=== PATIENT | male | born 1940 | race African-American/Black ===

== ENCOUNTER 2020-04-01 07:22 | Outpatient (CLI) | payer MEDICARE, OTHER, SELFPAY ==
--- NOTE | ~2020-04-01 | NM_ITS ---
NM bone scan whole body DATE: 04/01/2020 11:19 INDICATION: Prostate cancer restaging TECHNIQUE: Routine anterior and posterior whole body images of the skeleton approximately 3 hours aft er intravenous injection of 24.5 mCi 99M technetium HDP. COMPARISON: 04/01/2020 CT pulmonary scan 04/18/2020 CT abdomen pelvis 11/27/2018 radionuclide bone scan FINDINGS: There is prominent activity at the first carpometacarpal joint areas bilaterally consistent with osteoarthritis. There is also some increased uptake at the wrist joints. There is increased activity at the left knee joint, likely degenerative. There is increased uptake at the sternoclavicular and acromioclavicular joints, likely degenerative. No evidence of metastatic disease; no significant abnormal uptake of the spine or ribs. IMPRESSION: Degenerative changes; no evidence of metastatic disease Reviewed, dictated and finalized at [facility]. Reviewed, dictated and finalized at [facility].
--- NOTE | ~2020-04-01 | CT_ITS ---
EXAMINATION: CTA chest PE protocol DATE: 04/01/2020 09:33 INDICATION: Prostate cancer. Acute pulmonary embolism. TECHNIQUE: Computed tomography angiography (CTA) of the chest was performed with 100 mL Omnipaque-350 intravenous contrast timed to evaluate the pulmonary arteries. Coronal maximum intensity projection 3D-reconstructions were created by the technologist. Automated exposure control and iterative reconst ruction technique were employed. Exam dose: 1011.66 mGy-cm total exam DLP. COMPARISON: 04/01/2022 view chest 01/04/2016 CT chest abdomen pelvis FINDINGS: There is diagnostic contrast enhancement of the pulmonary arteries and no evidence of pulmo nary embolism. There is a new up to 1.6 cm irregular soft tissue mass in the right apex since 01/04/2016, suggesting right apical lung malignancy. PET/CT scan should be considered for further evaluation. Mild to moderate emphysematous changes are noted. Bilateral calcified pulmonary granulomas.. Calcified left hilar and right hilar lymph nodes. Aberrant origin of the right subclavian artery, a congenital anomaly. No thoracic aortic aneurysm or dissection is evident.] A couple of greater fissure lymph nodes are noted on each side. Left-sided transvenous pacemaker device with leads in right atrium, right ventricle, coronary sinus. Normal heart size. No pericardial or pleural effusion. Small sliding hiatal hernia. Diverticulosis of the splenic and hepatic flexures. Calcified hepatic and splenic granulomas consistent with old granulomatous disease. There is an approximately 6 millimeter sclerotic lesion of T6 vertebral body and another at T11, like ly secondary to prostate carcinoma. These lesions are less dense than noted on 01/04/2016 CT chest abd omen pelvis examination. Bilateral sclerotic sixth rib lesions are likewise less dense than on 01/04/2016. IMPRESSION: Irregular new 1.6 cm soft tissue mass in right lung apex, strongly suggestive of pulmonary malignancy . Consider PET/CT scan. Mild to moderate emphysema No evidence of pulmonary embolism. Small sliding hiatal hernia Diverticulosis of the colon Osteosclerotic lesions of T6, T11 and bilateral sixth ribs are less dense compared to 01/04/2016 On 04/01/[address] Joy telephoned the report and recommendation for consideration for PE T/CT scan for right apical irregular 1.[address] Draper Reviewed, dictated and finalized at [facility]. Reviewed, dictated and finalized at [facility]. IMPRESSION: Irregular new 1.6 cm soft tissue mass in right lung apex, strongly suggestive o f pulmonary malignancy. Consider PET/CT scan. Mild to moderate emphysema No evidence of pulmonary embolism. Small sliding hiatal hernia Diverticulosis of the colon Osteosclerotic lesions of T6, T11 and bilateral sixth ribs are less dense nani red to 01/04/2016 On 04/01/[address] Joy telephoned the report and recommendation fo r consideration for PET/CT scan for right apical irregular 1.[address] Jero chendel
--- NOTE | ~2020-04-01 | XR_ITS ---
EXAMINATION: XR chest 2V DATE: 04/01/2020 08:24 INDICATION: Prostate cancer. TECHNIQUE: Frontal and lateral views of the chest were obtained. COMPARISON: Chest 2 views 11/27/2018 FINDINGS: Calcified right lung nodules and calcified right hilar and mediastinal lymph nodes are cons istent with old granulomatous disease. No pleural effusion or pneumothorax. The heart size is normal. There is a left chest pacer with leads in right atrium, right ventricle, and coronary sinus. There i s an orphan lead in right ventricle. IMPRESSION: 1. No acute cardiopulmonary disease. Reviewed, dictated and finalized at [facility].
--- NOTE | ~2020-04-01 | CT_ITS ---
EXAMINATION: CT abdomen pelvis w con DATE: 04/01/2020 09:32 INDICATION: Prostate cancer restaging. TECHNIQUE: Computed tomography (CT) of the abdomen and pelvis was performed with 100 cc Omnipaque 350 intravenous contrast. Automated exposure control and iterative reconstruction technique were employe d. Exam dose: 1011.66 mGy-cm total exam DLP. COMPARISON: 01/04/2016 CT chest abdomen pelvis FINDINGS: New 1.6 cm irregular right apical soft tissue mass, suggestive of primary pulmonary maligna ncy. PET/CT imaging is recommended. Mild to moderate emphysema. Bilateral greater fissure lymph nodes. No pulmonary infiltrate or consolidation. No pleural effusion or pneumothorax. Normal heart size. Tri ple lead left-sided pacemaker device Small sliding hiatal hernia. Calcified hepatic and splenic granulomas consistent with old granulomatous disease. Old pulmonary gra nulomatous disease. 5.4 cm right renal cyst. 4 mm probable small left renal cyst. Possible smaller upper pole left renal cyst(s). Scattered Normal appendix. There are numerous diverticula of left and right colon, consistent with d iverticulosis; no evidence of diverticulitis. No bowel obstruction or intraperitoneal free air. Normal caliber of the abdominal aorta. No intraperitoneal or retroperitoneal mass lesion or lymphade nopathy or ascites. Status post hysterectomy. The urinary bladder is unremarkable. Less sclerotic bilateral sixth rib and T6 and T11 osteosclerotic lesions are noted, likely secondary to prostate metastases. Degenerative changes of the thoracic and lumbar spine, particularly at L5-S1. IMPRESSION: Less sclerotic osteosclerotic lesions likely secondary to prostate cancer at T6, T11 and bilateral sixth ribs Old pulmonary and hepatic and splenic granulomatous disease Small sliding hiatal hernia Renal cysts Extensive diverticulosis of the colon; no evidence of diverticulitis Reviewed, dictated and finalized at [facility]. Reviewed, dictated and finalized at [facility].
--- NOTE | ~2020-04-01 | US_ITS ---
EXAMINATION: US venous doppler [facility] DATE: 04/01/2020 08:57 INDICATION: Acute pulmonary embolism. TECHNIQUE: Grayscale ultrasound images without and with compression and Doppler ultrasound images of the left lower extremity veins were obtained. COMPARISON: None. FINDINGS: The visualized portions of left common femoral vein, profunda (deep) femoral vein, femoral vein, popl iteal vein, peroneal veins, posterior tibial veins, and greater saphenous vein outflow are patent. Th ere is a large Pineda's cyst. IMPRESSION: 1. No deep venous thrombosis. 2. Large left-sided Pineda's cyst. Reviewed, dictated and finalized at [facility].
[2020-04-01 09:07] LABS: Estimated Glomerular Filt Rate > 60
[2020-04-01 10:46] LABS: Basophils Absolute Auto 0.1 K/mm3 (0.0-0.1); Basophils Percent Auto 1.1 % (0.2-1.2); Eosinophils Absolute Auto 0.1 K/mm3 (0-0.3); Eosinophils Percent Auto 2.2 % (0-4.4); Hematocrit 43.4 % (42.0-52.0); Hemoglobin 14.3 g/dL (14.0-18.0); Immature Granulocyte Absolute 0.03 K/mm3 (0.00-0.031); Immature Granulocyte Percent A 0.5 % (0-0.5); Lymphocytes Absolute Auto 1.25 K/mm3 (0.9-3.2); Lymphocytes Percent Auto 22.5 % (18.3-44.2); Mean Corpuscular HGB Conc 32.9 g/dl (32-36); Mean Corpuscular Hemoglobin 31.7 pg (26-34); Mean Corpuscular Volume 96.2 fl (80-100); Mean Platelet Volume 10.1 fl (7.4-10.4); Monocytes Absolute Auto 0.6 K/mm3 (0.1-0.6); Monocytes Percent Auto 11.5 % (2.6-8.5); Neutrophils Absolute Auto 3.5 K/mm3 (1.3-6.7); Neutrophils Percent Auto 62.2 % (45.5-73.1); Platelet Count Result 187 k/mm3 (150-375); Red Blood Count 4.51 M/mm3 (4.6-6.20); Red Cell Distribution Width 12.3 % (11.5-14.5); White Blood Count 5.6 K/mm3 (4.5-10.0)
[2020-04-01 10:58] LABS: Alanine Aminotransferase 33 U/L (4-50); Albumin Level 4.2 g/dL (3.5-5.1); Alkaline Phosphatase 123 U/L (38-126); Aspartate Amino Transferase 32 U/L (17-59); Bilirubin,Total 0.6 mg/dL (0.2-1.3); Blood Urea Nitrogen 20 mg/dL (9-20); Calcium 9.3 mg/dL (8.4-10.2); Carbon Dioxide 30 mmol/L (22-30); Chloride 105 mmol/L (98-107); Cholesterol 191 mg/dL (0-200); Estimated Glomerular Filt Rate > 60; Glucose 101 mg/dL (75-110); HDL Direct 40 mg/dL; Potassium 4.2 mmol/L (3.4-5.0); Sodium 141 mmol/L (137-145); Triglycerides 112 mg/dL (<150)
[2020-04-01 11:09] LABS: LDL Cholesterol Direct 116 mg/dL
[2020-04-01 11:27] LABS: Prostate Specific Antigen 0.1 ng/mL (< OR = 4.0)
== END 2020-04-01 07:23 | disposition home or self-care (01) ==
PROVIDERS: PCP Internal Medicine; Visit Provider Internal Medicine Hematology & Oncology
DX: C61 Malignant neoplasm of prostate (principal); I26.99 Other pulmonary embolism without acute cor pulmonale; I82.4Z2 Acute embolism and thrombosis of unspecified deep veins of left distal lower extremity; I10 Essential (primary) hypertension; E78.5 Hyperlipidemia, unspecified
CPT/HCPCS: 36415; 71046; 71275; 74177; 78306; 80053; 80061; 84153; 84439; 84443; 85025; 93971; A9561; Q9967

== ENCOUNTER 2020-04-02 09:00 | Outpatient (CLI) | payer MEDICARE, OTHER, SELFPAY ==
--- NOTE | ~2020-04-02 | PE_ITS ---
EXAMINATION: PET skull to mid thigh DATE: 04/02/2020 11:01 INDICATION: Lung nodule. Prostate cancer. TECHNIQUE: Blood glucose level was 102 mg/dL. 10.060 mCi of 18-fluorodeoxyglucose (18-FDG) was admini stered i.v. Low dose computed tomography (CT) images were acquired from the base of the brain to the proximal thighs for attenuation correction and anatomic localization. Automated exposure control was employed. Dose-length product (DLP) was 704 mGy-cm. Positron emission tomography (PET) images were ac quired in the same distribution. COMPARISON: CT abdomen and pelvis 04/01/2020, 11/27/2018, 07/03/2012, CT chest 01/04/16, 04/01/20 FINDINGS: Head/neck: There is increased activity in the oral cavity, oropharynx, submandibular salivary glands, and glottis without CT correlate, likely physiologic. Chest: There is mild scarring at the lung apices. There is a 1.2 cm nodule at right lung apex with ma ximum SUV of 2.6, worsened from 01/04/16. Calcified pulmonary nodules and calcified hilar and mediasti nal lymph nodes are consistent with old granulomatous disease. No pleural effusion. The heart size is normal. There is a left chest pacer with leads in right atrium, right ventricle, and coronary sinus. No pericardial effusion. There are sclerotic lesions in the bilateral 6th ribs and T6 and T11 verteb ral bodies. Abdomen/pelvis/proximal thighs: Calcifications in the liver and spleen are consistent with old adenom atous disease. There is contrast in the gallbladder. There is a small sliding hiatal hernia. The panc reas, adrenal glands, and left kidney are normal. There are cysts in right kidney measuring up to 5.7 cm. The prostate is mildly enlarged. There is diverticulosis of the colon without evidence of divert iculitis. There are no dilated loops of bowel. There are no pathologically enlarged lymph nodes. Ther e is no free intraperitoneal fluid. IMPRESSION: 1. 1.2 cm nodule at right lung apex with increased activity, worsened from 01/04/16, suspicious for pr imary bronchogenic carcinoma. CT-guided biopsy is recommended. 2. Sclerotic lesions of bone with improvement from 01/04/16, consistent with metastatic disease. Reviewed, dictated and finalized at [facility]. IMPRESSION: 1. 1.2 cm nodule at right lung apex with increased activity, worsened from 01/04, suspicious for primary bronchogenic carcinoma. CT-guided biopsy is recomme nded. 2. Sclerotic lesions of bone with improvement from 01/04/16, consistent with met astatic disease.
[2020-04-02 09:34] LABS: Glucose Point of Care 102 (65-105)
== END 2020-04-02 09:01 | disposition home or self-care (01) ==
PROVIDERS: PCP Internal Medicine; Visit Provider Internal Medicine Hematology & Oncology
DX: C61 Malignant neoplasm of prostate (principal); R91.1 Solitary pulmonary nodule; M89.9 Disorder of bone, unspecified
CPT/HCPCS: 78815; A9552

== ENCOUNTER 2020-09-16 07:30 | Outpatient (CLI) | payer MEDICARE, OTHER, SELFPAY ==
--- NOTE | ~2020-09-16 | NM_ITS ---
EXAMINATION: NM bone scan whole body DATE: 09/16/2020 11:09 INDICATION: Prostate cancer. TECHNIQUE: 25 mCi Tc-99m HDP was administered intravenously. Delayed whole-body scintigrams were obt ained. COMPARISON: Bone scan 04/01/2020, CT 09/16/2020 FINDINGS: There is joint-centered increased activity in the hands and left knee without radiographic comparison, likely osteoarthritis. IMPRESSION: 1. No evidence of metastatic disease. Reviewed, dictated and finalized at [facility].
--- NOTE | ~2020-09-16 | CT_ITS ---
EXAMINATION: CT chest abdomen pelvis w con DATE: 09/16/2020 08:21 INDICATION: Prostate cancer restaging TECHNIQUE: Computed tomography (CT) of the chest, abdomen, and pelvis was performed with 100 cc Omnip aque 350 intravenous contrast. Automated exposure control and iterative reconstruction technique were employed. Exam dose: 808.39 mGy-cm total exam DLP. COMPARISON: 04/01/2028 CT pulmonary scan 04/01/2020 CT abdomen pelvis FINDINGS: CHEST CT: Incidentally noted is aberrant right subclavian artery. Left-sided triple lead pacemaker device with leads in right atrium, right ventricle and coronary sinu s. Normal heart size. No pericardial effusion. No evidence of thoracic aortic aneurysm or dissection. No hilar or mediastinal mass lesion or lymphadenopathy. Approximately 9 x 15.5 mm right apical soft tissue density appears mildly increased in size since 03/20; this was associated with activity on the 04/02/2028 PET scan and was reported suspicious for p rimary bronchogenic carcinoma. Bilateral likely benign fissural nodes along the greater fissures. ABDOMEN/PELVIS CT: Very small gallstones at the dependent gallbladder are not excluded. Consider gallbladder ultrasound for more definitive confirmation or exclusion of cholelithiasis. Occasional hepatic and splenic calci fied granulomas consistent with old granulomatous disease. The liver, spleen, pancreas, and adrenal glands and kidneys are unremarkable other than a 5.4 cm exop hytic cyst at the lower pole of the right kidney. No urinary tract calculus or hydroureteronephrosis. There is atherosclerotic calcification of the abdominal aorta but no aneurysm or dissection. No intraperitoneal or retroperitoneal or pelvic mass lesion or adenopathy or ascites. Bilateral fat-containing inguinal hernias, larger on the left. Small sliding hiatal hernia. Normal appendix. There is extensive diverticulosis of left and right colon; no CT evidence of diverticulitis. No bowel obstruction, bowel wall thickening, pneumatosis or intraperitoneal free air. Probable prostatectomy. The urinary bladder appears unremarkable. IMPRESSION: Probable prostatectomy; no mass in the prostate bed or abdominal or pelvic lymphadenopat hy or evidence of osteosclerotic metastatic disease Mildly increased size of right apical mass, which was PET scan positive, suspicious for primary bronc hogenic carcinoma of the right upper lobe Cannot exclude cholelithiasis Extensive diverticulosis of left and right colon; no CT evidence of diverticulitis Small sliding hiatal hernia Reviewed, dictated and finalized at [facility]. Reviewed, dictated and finalized at [facility]. IMPRESSION: Probable prostatectomy; no mass in the prostate bed or abdominal o r pelvic lymphadenopathy or evidence of osteosclerotic metastatic disease Mildly increased size of right apical mass, which was PET scan positive, suspic ious for primary bronchogenic carcinoma of the right upper lobe Cannot exclude cholelithiasis Extensive diverticulosis of left and right colon; no CT evidence of diverticuli tis Small sliding hiatal hernia
[2020-09-16 08:14] LABS: Estimated Glomerular Filt Rate > 60
== END 2020-09-16 07:31 | disposition home or self-care (01) ==
PROVIDERS: PCP Internal Medicine
DX: C61 Malignant neoplasm of prostate (principal); R91.8 Other nonspecific abnormal finding of lung field; K57.90 Diverticulosis of intestine, part unspecified, without perforation or abscess without bleeding; K44.9 Diaphragmatic hernia without obstruction or gangrene
CPT/HCPCS: 71260; 74177; 78306; A9561; Q9967

== ENCOUNTER 2022-01-31 07:52 | Outpatient (CLI) | payer MEDICARE, OTHER, SELFPAY ==
--- NOTE | ~2022-01-31 | CT_ITS ---
EXAMINATION: CT abdomen pelvis w con DATE: 01/31/2022 08:35 INDICATION: Prostate cancer. TECHNIQUE: Computed tomography (CT) of the abdomen and pelvis was performed with 100 mL Omnipaque 350 intravenous contrast. Automated exposure control and iterative reconstruction technique were employe d. The dose-length product was 609.86 mGy-cm. COMPARISON: CT abdomen and pelvis 09/16/2020 FINDINGS: The visualized portions of the lung bases demonstrate mild chronic interstitial lung diseas e characterized by septal thickening and mild bronchiectasis. There is a pneumatocele in right lower lobe. No pleural effusion. The heart size is normal. No pericardial effusion. There are pacer wires i n right atrium and right ventricle. There is a small sliding hiatal hernia. Calcifications in the alexsandra er and spleen are consistent with old granulomatous disease. The gallbladder, pancreas, and adrenal g lands are normal. There are cysts in the kidneys measuring up to 5.7 cm on the right. There is divert iculosis of the colon without evidence of diverticulitis. There is a left inguinal hernia containing fat. There are no dilated loops of bowel. The appendix is normal. There are no pathologically enlarge d lymph nodes. There is no free intraperitoneal fluid. There is severe lower lumbar spondylosis. IMPRESSION: 1. No evidence of metastatic disease. Reviewed, dictated and finalized at [facility].
[2022-01-31 08:26] LABS: Estimated Glomerular Filt Rate > 60
== END 2022-01-31 07:53 | disposition home or self-care (01) ==
PROVIDERS: PCP Internal Medicine
DX: C61 Malignant neoplasm of prostate (principal)
CPT/HCPCS: 74177; Q9967

== ENCOUNTER 2022-02-11 08:25 | Outpatient (CLI) | payer MEDICARE, OTHER, SELFPAY ==
--- NOTE | ~2022-02-11 | NM_ITS ---
EXAMINATION: NM bone scan whole body DATE: 02/11/2022 12:39 INDICATION: Prostate cancer TECHNIQUE: 25.7 mCi Tc-99m HDP was administered intravenously. Delayed whole-body scintigrams were o btained. COMPARISON: 09/16/2020 FINDINGS: Gaseous likely degenerative joint centered uptake at the bilateral hands, knees, feet, sternoclavicul ar and acromioclavicular joints. Small focus of at the right side of the mandible likely related to d ental disease. No other suspicious foci of abnormal bone uptake to suggest metastatic disease. IMPRESSION: 1. No evident metastatic disease. Reviewed, dictated and finalized at [facility].
== END 2022-02-11 08:26 | disposition home or self-care (01) ==
LOC: ANHIMG 08:27
PROVIDERS: PCP Internal Medicine; Visit Provider Family Medicine
DX: C61 Malignant neoplasm of prostate (principal)
CPT/HCPCS: 78306; A9561

== ENCOUNTER 2022-09-21 06:34 | Outpatient (CLI) | payer MEDICARE, OTHER, SELFPAY ==
--- NOTE | ~2022-09-21 | CT_ITS ---
EXAMINATION: CT chest abdomen pelvis w con DATE: 09/21/2022 07:22 INDICATION: Non-small cell cancer of right lung. TECHNIQUE: Computed tomography (CT) of the chest, abdomen, and pelvis was performed with 100 mL Omnip aque 350 intravenous contrast. Automated exposure control and iterative reconstruction technique were employed. The dose-length product was 947.29 mGy-cm. COMPARISON: CT abdomen and pelvis 01/31/2022 FINDINGS: CHEST CT: There is mild atelectasis in the inferior lungs. There is chronic peripheral septal thickening in the lungs with a lower lung predominance. No honeycombing. There is a pneumatocele in right lower lobe. There are changes of wedge resection of right upper lobe. No pleural effusion. There is an aberrant r ight subclavian artery. The heart size is normal. No pericardial effusion. There is a left chest pace r with leads in right atrium, right ventricle, and coronary sinus. There is a small sliding hiatal he rnia. Calcified hilar and mediastinal lymph nodes are consistent with old granulomatous disease. Ther e is mild thoracic spondylosis. ABDOMEN/PELVIS CT: The liver, gallbladder, spleen, pancreas, adrenal glands, and left kidney are normal. There is a 6.1 cm cyst in right kidney. There are bilateral inguinal hernias containing fat. There are changes of pr ostatectomy. There is diverticulosis of the colon without evidence of diverticulitis. There are no di lated loops of bowel. The appendix is normal. There are no pathologically enlarged lymph nodes. There is no free intraperitoneal fluid. There is severe lower lumbar spondylosis. IMPRESSION: 1. No evidence of metastatic disease. Reviewed, dictated and finalized at location [facility].
[2022-09-21 07:19] LABS: Estimated Glomerular Filt Rate > 60
== END 2022-09-21 06:35 | disposition home or self-care (01) ==
PROVIDERS: PCP Internal Medicine; Visit Provider Student in an Organized Health Care Education/Training Program
DX: C34.91 Malignant neoplasm of unspecified part of right bronchus or lung (principal)
CPT/HCPCS: 71260; 74177; Q9967

== ENCOUNTER 2023-03-30 08:40 | Outpatient (CLI) | payer MEDICARE, OTHER, SELFPAY ==
--- NOTE | ~2023-03-30 | CT_ITS ---
Clinical Indication: Non-small cell lung carcinoma CT Scan of the Chest with Contrast: Technique: Contiguous sections were acquired throughout the chest after intravenous administration of 75 cc of Omnipaque 350. Dose reduction technique was used on this scan by utilizing automated exposu re control and iterative reconstruction technique. The dose-length product (DLP) was 421.10 mGy-cm. COMPARISON: 09/21/2022 Findings: There is no evidence of any significant mediastinal, hilar or axillary lymphadenopathy. Densely calci fied right paratracheal lymph node noted. There is no filling defect in the pulmonary arterial tree t o suggest pulmonary embolus. There is no evidence of aortic dissection or aneurysm. Aberrant right mckeon bclavian artery noted. There is no evidence of pleural or pericardial effusion. Probable prior partial right upper lobectomy again noted. No suspicious pulmonary nodule or other pul monary abnormality seen. Images through the upper abdomen reveal no abnormalities. Impression: No evidence for active malignancy or metastatic disease. No change from prior exam. Evidence of prior partial right upper lobectomy. Reviewed, dictated and finalized at location . Impression: No evidence for active malignancy or metastatic disease. No change from prior e xam. Evidence of prior partial right upper lobectomy.
[2023-03-30 09:01] LABS: Estimated Glomerular Filt Rate > 60
== END 2023-03-30 08:41 | disposition home or self-care (01) ==
PROVIDERS: PCP Internal Medicine; Visit Provider Internal Medicine Hematology & Oncology
DX: C34.91 Malignant neoplasm of unspecified part of right bronchus or lung (principal); Z90.2 Acquired absence of lung [part of]
CPT/HCPCS: 71260; Q9967

== ENCOUNTER 2023-07-24 18:40 | Emergency (ER) | payer MEDICARE, OTHER, SELFPAY ==
--- NOTE | ~2023-07-24 | CT_ITS ---
Non-contrast Head CT History: Injury Technique: Axial non-contrast imaging of the brain was performed. Dose reduction technique was used on this scan by utilizing automated exposure control and iterative reconstruction technique. The dose -length product (DLP) was 605.33 mGy-cm. Findings: There is no evidence of intracranial hemorrhage, mass lesion, or acute infarct. Brain par enchyma appears normal. The ventricles and subarachnoid spaces are normal in size. The calvarium ap pears normal. The visualized paranasal sinuses and mastoid air cells are clear. Impression: No significant abnormality seen. Reviewed, dictated and finalized at location . Impression: No significant abnormality seen.
--- NOTE | ~2023-07-24 | CT_ITS ---
Noncontrast CT scan of the cervical spine Technique: Multiple contiguous axial [address] images of the cervical spine were obtained and rec onstructed in 2D sagittal and coronal planes on the acquisition scanner. Dose reduction technique was used on this scan by utilizing automated exposure control, adjustment of the mA and/or kV according to patient size. The dose-length product (DLP) was 580.08 mGy-cm. Clinical History: Pain Findings: No fractures or dislocations. There is advanced degenerative disc disease throughout the c ervical spine, with extensive uncovertebral degenerative change. There is probable mild bilateral [place] ral foraminal narrowing at C3-C4, with disc osteophyte complex and probable mild canal stenosis. Ther e is bilateral neural foraminal narrowing at C4-C5, disc osteophyte complex and probable mild canal s tenosis. There is bilateral neural foraminal narrowing at C5-C6. There is bilateral neural foraminal narrowing at C6-C7. No prevertebral soft tissue swelling. Impression: No fracture or subluxation of the cervical spine. Advanced degenerative spondylosis throughout the cervical spine, as detailed above. Reviewed, dictated and finalized at location M. Impression: No fracture or subluxation of the cervical spine. Advanced degenerative spondylosis throughout the cervical spine, as detailed ab jorge.
[2023-07-24 18:46] VITALS: BP 145/71; PULSE 59; RESP 16; TEMP 36.2; O2SAT 99
[2023-07-24 19:23] VITALS: BP 141/77; PULSE 75; RESP 15; O2SAT 100
--- NOTE | 2023-07-24 19:23 | ED.FALL ---
HPI - Fall General Chief Complaint: Fall Stated Complaint: FALL/ STRUCK HEAD Time Seen by Provider: 07/24/23 18:43 History of Present Illness HPI Narrative: Patient presents from home with his after a fall. He slipped on laundry on the basement floor. Landing on the back of his head. Patient saw stars but denies loss of consciousness. Denies any current headache or symptoms. Also denies any additional injuries. Patient ambulated into the emergency department. He is very pleasant and his exam is grossly benign. Patient takes Xarelto for history of PE 4 years ago Related Data Home Medications Medication Instructions Recorded Confirmed Unable to Obtain Home Medications 07/06/22 07/06/22 Allergies Allergy/AdvReac Type Severity Reaction Status Date / Time No Known Allergies Allergy Verified 07/06/22 13:22 Review of Systems Review of Systems: All review of systems negative except for what is documented in the HPI Exam Narrative: GENERAL: Well-appearing, well-nourished, and in no acute distress. HEAD: Normocephalic, atraumatic. EYES: PERRLA and EOMI. ENT: Nares clear, no rhinorrhea or epistaxis. Mucous membranes moist. NECK: Supple. no vertebral tenderness CHEST: Clear to auscultation. No respiratory distress. HEART: Regular rate and rhythm. ABDOMEN: Soft, nontender, nondistended. EXTREMITIES: Normal range of motion. No edema. SKIN: Warm, dry, no rash. NEURO: No focal deficits. Alert and oriented x3. PSYCH: Normal mood and affect. Course Course Emergency Course: Due to patient being on Xarelto head CT ordered. Due to mechanism of fall CT neck also ordered. Patient denies current complaints. If negative will plan for discharge to home Reevaluation(s) Reevaluation #1: CT head negative for acute intracranial injury. CT C-spine shows advanced degenerative changes. Results discussed with patient. Advised to return to the emergency department for any acute changes. Shared decision making regarding plan for discharge to home. Vital Signs Vital signs: Vital Signs Temperature 36.2 C L 07/24/23 18:46 Pulse Rate 59 L 07/24/23 18:46 Respiratory Rate 16 07/24/23 18:46 Blood Pressure 145/71 H 07/24/23 18:46 Pulse Oximetry 99 07/24/23 18:46 Temperature 36.2 C L 07/24/23 18:46 Pulse Rate 75 07/24/23 19:23 Respiratory Rate 15 07/24/23 19:23 Blood Pressure 141/77 H 07/24/23 19:23 Pulse Oximetry 100 07/24/23 19:23 Discharge Plan Discharge Clinical Impression: Acute head trauma Qualifiers: Encounter type: initial encounter Qualified Code(s): S09.90XA - Unspecified injury of head, initial encounter Fall Qualifiers: Encounter type: initial encounter Qualified Code(s): W19.XXXA - Unspecified fall, initial encounter Patient Disposition: Home, Self-Care Condition: Stable Instructions: Antibiotic Form, Head Injury (DC) Additional Instructions: Tylenol for any headache Return to the emergency department for any worsening headache, lightheadedness or dizziness or vomiting Prescriptions: No Action Unable to Obtain Home Medications Follow-up/Referrals: Elver,MD Nithin [Primary Care Provider] - Time of Disposition: 19:36
== END 2023-07-24 20:01 | disposition home or self-care (01) ==
LOC: ANHED 19:29
PROVIDERS: Emergency Provider Emergency Medicine; PCP Internal Medicine
DX: S09.90XA Unspecified injury of head, initial encounter (principal); Z86.711 Personal history of pulmonary embolism; Z79.01 Long term (current) use of anticoagulants; W01.0XXA Fall on same level from slipping, tripping and stumbling without subsequent striking against object, initial encounter
CPT/HCPCS: 70450; 72125; 99284

== ENCOUNTER 2023-07-26 07:58 | Emergency (ER) | payer MEDICARE, OTHER, SELFPAY ==
--- NOTE | ~2023-07-26 | XR_ITS ---
EXAMINATION: XR knee LT 3V DATE: 07/26/2023 09:26 INDICATION: Posterior left knee pain and swelling post fall TECHNIQUE: Anteroposterior, oblique and crosstable lateral views of the left knee were obtained COMPARISON: None. FINDINGS: Alignment is normal. No fracture. Tricompartmental osteoarthritis at the left knee with small margin al osteophytes in all 3 compartments. There is at least mild to moderate joint space narrowing in the lateral compartment which could be underestimated on nonweightbearing imaging. Subtle chondrocalcino sis at the lateral meniscus. Small to moderate-sized left knee joint effusion without layering lipohe marthrosis. Loose osteochondral body posterior medial to the knee likely within a Pineda's cyst. There appears to be some fatty atrophy of the medial head of the gastrocnemius. IMPRESSION: 1. Left knee tricompartmental osteoarthritis and small to moderate-sized joint effusion. No acute oss eous abnormality. Reviewed, dictated and finalized at location A. IMPRESSION: 1. Left knee tricompartmental osteoarthritis and small to moderate-sized joint effusion. No acute osseous abnormality.
[2023-07-26 08:22] VITALS: BP 144/60; PULSE 70; RESP 15; TEMP 36.4; O2SAT 100
[2023-07-26 09:13] VITALS: BP 157/80; O2SAT 100
[2023-07-26 09:15] VITALS: BP 154/80; PULSE 69; RESP 16; TEMP 36.8; O2SAT 98
[2023-07-26 09:16] VITALS: BP 150/80; O2SAT 100
--- NOTE | 2023-07-26 09:31 | ED.LOWEXIN ---
HPI - Extremity Injury (Lower) General Chief Complaint: Extremity Injury, Lower Stated Complaint: fall on 07/24 knee pain Time Seen by Provider: 07/26/23 09:17 History of Present Illness HPI Narrative: 83-year-old male reports for evaluation for left knee pain after fall that occurred 2 days ago. Patient states he slipped on loose laundry on the floor and landed with his left knee tucked up under him. Patient states he did not feel a popping sensation in his knee at the time of the fall. At the time, he did hit his head, no reported LOC. He was evaluated in this ER the day of the fall and had a negative CT brain and neck not at that time. Patient states he is feeling great other than his left knee pain. Patient reports the pain is predominantly in the posterior aspect of his knee. He is able to ambulate but states the pain is worse with ambulation. He also reports worsening pain with full extension of his knee. He denies fever, nausea or vomiting, knee warmth. He has not been icing his knee or taking anything for pain. Related Data Home Medications Medication Instructions Recorded Confirmed Unable to Obtain Home Medications 07/06/22 07/06/22 Allergies Allergy/AdvReac Type Severity Reaction Status Date / Time No Known Allergies Allergy Verified 07/06/22 13:22 Review of Systems Review of Systems: CONSTITUTIONAL: Denies fever, chills EYES: Denies visual changes, redness, or discharge. ENT: Denies rhinorrhea, congestion, sore throat, or otalgia. CARDIOVASCULAR: Denies chest pain, palpitations, or edema. RESPIRATORY: Denies cough or dyspnea. GASTROINTESTINAL: Denies abdominal pain, nausea, vomiting, or diarrhea. GENITOURINARY: Denies dysuria or hematuria. SKIN: Denies rash or itching. MUSCULOSKELETAL: See HPI NEUROLOGIC: Denies headache, numbness, dizziness, or weakness. PSYCHIATRIC: Denies anxiety or depression. Exam Narrative: GENERAL: Well-appearing, in no acute distress. Patient resting comfortably in exam bed. He is pleasant and conversational. HEAD: Normocephalic NECK: Supple. CHEST: No respiratory distress. Clear to auscultation, no adventitious breath sounds. HEART: Regular rate and rhythm. No murmur heard. Normal peripheral pulses. ABDOMEN: Soft, nontender, normal active bowel sounds. EXTREMITIES: Left knee with mild to moderate amount of edema. Tenderness to the medial joint line. No tenderness to remainder of knee or lower extremity. Full active and passive range of motion of knee and hip. No warmth or erythema to knee. Negative anterior and posterior drawer. No laxity with varus and valgus stress patient ambulatory with steady gait. No overlying skin changes. DP pulse 2+. Cap refill less than 2. Sensation intact throughout. SKIN: Warm, dry, no rash. NEURO: No focal deficits. Alert and oriented x3. PSYCH: Normal mood and affect. Course Vital Signs Vital signs: Vital Signs Temperature 97.5 F L 07/26/23 08:22 Pulse Rate 70 07/26/23 08:22 Respiratory Rate 15 07/26/23 08:22 Blood Pressure 144/60 H 07/26/23 08:22 Pulse Oximetry 100 07/26/23 08:22 Oxygen Delivery Room Air 07/26/23 08:22 Temperature 98.3 F 07/26/23 09:15 Pulse Rate 69 07/26/23 09:15 Respiratory Rate 16 07/26/23 09:15 Blood Pressure 154/80 H 07/26/23 09:15 Pulse Oximetry 98 07/26/23 09:15 Oxygen Delivery Room Air 07/26/23 08:22 MDM - Extremity Injury (Lower) MDM Narrative Medical decision making narrative: 83-year-old male reports for evaluation for left knee pain after fall that occurred 2 days ago after he slipped on laundry on the floor. See HPI for further history. Vital stable and he is well-appearing on exam. Exam significant knee edema without warmth or erythema. Full active and passive range of motion of knee. He is neurovascularly intact. X-ray of the knee shows left knee tricompartmental osteoarthritis and a small to moderate size joint effusion. No acute osse
[2023-07-26 10:01] VITALS: BP 142/84; O2SAT 100
[2023-07-26] MEDS: ACETAMINOPHEN 325 MG TABLET 650 MG PO (10:06)
== END 2023-07-26 10:19 | disposition home or self-care (01) ==
PROVIDERS: Emergency Provider Physician Assistant; PCP Internal Medicine
DX: S86.912A Strain of unspecified muscle(s) and tendon(s) at lower leg level, left leg, initial encounter (principal); M17.12 Unilateral primary osteoarthritis, left knee; W01.0XXA Fall on same level from slipping, tripping and stumbling without subsequent striking against object, initial encounter
CPT/HCPCS: 73562; 99283; A9270

== ENCOUNTER 2023-09-15 01:22 | Day surgery (SDC) | payer MEDICARE, OTHER, SELFPAY ==
[2023-09-06 11:36] VITALS: BMI 31.4
--- NOTE | 2023-09-13 11:06 | PC.NURSE ---
CRMD form received from Dr. Vaughan office, noted that Rep. needs to be present if cautery is used during procedure-magnet application is not sufficient. Dr. Loving made aware of this per Tram Hernandes RN and he does not need a rep. present and will not use cautery requiring this. Note is made on chart for day of proc.
--- NOTE | 2023-09-14 16:41 | PM.HPGS ---
History of Present Illness History of Present Illness Consent: Risks, benefits, and alternatives have been discussed and questions answered. Patient agrees to proceed with procedure. Chief complaint: GERD Narrative: Jeanna Felix is a 83 year old male referred for endoscopy because of persistent symptoms of reflux despite taking omeprazole. The medicine has controlled his heartburn but he is having increasing episodes of regurgitation. This particularly occurs at night. Review of Systems Review of Systems: All systems reviewed & are unremarkable except as noted in HPI and below PMFSH Social History Social History Smoking status: Never smoker Alcohol intake: never Substance use: never Substance use type: does not use Living arrangements: with family Spiritual care concerns: No Meds Home Medications and Allergies Home Medications Medication Instructions Recorded Confirmed Type Beet 1,000 mg PO DAILY 09/06/23 09/15/23 History amlodipine 10 mg tablet 10 mg PO DAILY 09/06/23 09/15/23 History ascorbic acid (vitamin C) 1,000 mg 1 g PO BID 09/06/23 09/15/23 History tablet atorvastatin 40 mg tablet 40 mg PO DAILY 09/06/23 09/15/23 History brinzolamide 1 % eye 1 drp EACH EYE BID 09/06/23 09/15/23 History drops,suspension dorzolamide 2 % eye drops 1 drp EACH EYE BID 09/06/23 09/15/23 History garlic 400 mg tablet,delayed 400 mg PO DAILY 09/06/23 09/15/23 History release waleska root extract 550 mg PO DAILY 09/06/23 09/15/23 History hydrochlorothiazide 12.5 mg tablet 12.5 mg PO DAILY 09/06/23 09/15/23 History latanoprost 0.005 % eye drops 1 drp EACH EYE DAILY 09/06/23 09/15/23 History leuprolide 1 dose IM [id number] 09/06/23 09/15/23 History lisinopril 40 mg tablet 40 mg PO DAILY 09/06/23 09/15/23 History magnesium oxide 400 mg PO DAILY 09/06/23 09/15/23 History metoprolol tartrate 50 mg tablet 50 mg PO BID 09/06/23 09/15/23 History multivitamin 1 tablet PO DAILY 09/06/23 09/15/23 History omega 7-[id number]-jvn-fish oil 1,000 mg 1 cap PO BID 09/06/23 09/15/23 History (120 mg-180 mg) capsule (Fish Oil) omeprazole 20 mg capsule,delayed 20 mg PO DAILY 09/06/23 09/15/23 History release rivaroxaban 20 mg tablet (Xarelto) 20 mg PO HS 09/06/23 09/15/23 History vitamin E (dl, acetate) 180 mg 180 mg PO DAILY 09/06/23 09/15/23 History (400 unit) capsule Allergies Allergy/AdvReac Type Severity Reaction Status Date / Time No Known Allergies Allergy Verified 09/15/23 07:35 Exam Const: General: alert Orientation/consciousness: patient oriented x3 Resp: Auscultation: clear to auscultation bilaterally Cardio: Rate: regular rate Rhythm: regular rhythm GI: GI Palp: Yes Soft to palpation and No Tenderness to palpation present (GI) Neuro: General: patient oriented x3 Assessment and Plan Assessment and plan (1) GERD (gastroesophageal reflux disease): Code(s): K21.9 - Gastro-esophageal reflux disease without esophagitis Status: Acute Assessment and Plan: EGD with possible biopsy or dilatation or cautery.
[2023-09-15 07:36] VITALS: BP 139/74; PULSE 70; RESP 18; TEMP 35.7; O2SAT 100
[2023-09-15] MEDS: LACTATED RINGERS 1,000 ML 150 ML IV CONT (07:39)
--- NOTE | 2023-09-15 08:32 | WPDANESEPPF ---
Anes - Initial Pre Proc Eval Procedure: Operation Date: 09/15/23 09:00 Proposed Procedures p Esophagogastroduodenoscopy EGD - Talib Loving MD Date/Time: 09/15/23 08:32 Surgeon: Talib Loving MD Pre Op Diagnosis: GERD Patient Data Age: 83 Gender: M Height: 1.7 m Weight: 91.8 kg Last Vital Signs Temp 96.3 F L 09/15/23 07:36 Pulse 70 09/15/23 07:36 Resp 18 09/15/23 07:36 BP 139/74 09/15/23 07:36 Pulse Ox 100 09/15/23 07:36 O2 Del Method Room Air 09/15/23 07:36 Allergies Allergy/AdvReac Type Severity Reaction Status Date / Time No Known Allergies Allergy Verified 09/15/23 07:35 Home Medications Medication Instructions Recorded Confirmed Type Beet 1,000 mg PO DAILY 09/06/23 09/15/23 History amlodipine 10 mg tablet 10 mg PO DAILY 09/06/23 09/15/23 History ascorbic acid (vitamin C) 1,000 mg 1 g PO BID 09/06/23 09/15/23 History tablet atorvastatin 40 mg tablet 40 mg PO DAILY 09/06/23 09/15/23 History brinzolamide 1 % eye 1 drp EACH EYE BID 09/06/23 09/15/23 History drops,suspension dorzolamide 2 % eye drops 1 drp EACH EYE BID 09/06/23 09/15/23 History garlic 400 mg tablet,delayed 400 mg PO DAILY 09/06/23 09/15/23 History release waleska root extract 550 mg PO DAILY 09/06/23 09/15/23 History hydrochlorothiazide 12.5 mg tablet 12.5 mg PO DAILY 09/06/23 09/15/23 History latanoprost 0.005 % eye drops 1 drp EACH EYE DAILY 09/06/23 09/15/23 History leuprolide 1 dose IM [id number] 09/06/23 09/15/23 History lisinopril 40 mg tablet 40 mg PO DAILY 09/06/23 09/15/23 History magnesium oxide 400 mg PO DAILY 09/06/23 09/15/23 History metoprolol tartrate 50 mg tablet 50 mg PO BID 09/06/23 09/15/23 History multivitamin 1 tablet PO DAILY 09/06/23 09/15/23 History omega 5-vpo-ini-fish oil 1,000 mg 1 cap PO BID 09/06/23 09/15/23 History (120 mg-180 mg) capsule (Fish Oil) omeprazole 20 mg capsule,delayed 20 mg PO DAILY 09/06/23 09/15/23 History release rivaroxaban 20 mg tablet (Xarelto) 20 mg PO HS 09/06/23 09/15/23 History vitamin E (dl, acetate) 180 mg 180 mg PO DAILY 09/06/23 09/15/23 History (400 unit) capsule Patient hx anesthesia problems: none Family hx anesthesia problems: none Results Review: All pre-operative results and documents have been reviewed as part of the pre-operative evaluation. [facility] Social History Social History Smoking status: Never smoker Alcohol intake: never Substance use: never Substance use type: does not use Living arrangements: with family Spiritual care concerns: No Anes - Eval Final PreProcedure Day of Procedure 09/15/23 08:32 Patient weight: normal Heart: regular rate and rhythm Lungs: clear to auscultation Airway: Mallampati scale class II Neurological: alert and oriented Last oral intake: >/= 8 hours ASA classification: III Emergent: no Anesthetic plan: proceed Anesthesia type and monitoring: general GIVS and standard monitoring Results Review: All pre-operative results and documents have been reviewed as part of the pre-operative evaluation. Informed Consent: The patient's anesthetic plan and its attendant risks and benefits were discussed with the patient/family/POA. Questions were solicited and answers provided to the satisfaction of the patient/family/POA.
--- NOTE | 2023-09-15 09:05 | SUR.OPER ---
DAIRY NUTRITIONIST USED YANKEUR SUCTIONING DURING PROCEDURE
[2023-09-15 09:07] VITALS: BP 103/56; PULSE 70; RESP 16; O2SAT 99
[2023-09-15 09:17] VITALS: BP 100/62; PULSE 70; RESP 17; O2SAT 99
[2023-09-15 09:27] VITALS: BP 112/74; PULSE 72; RESP 18; O2SAT 99
== END 2023-09-15 09:35 | disposition home or self-care (01) ==
PROVIDERS: PCP Internal Medicine; Visit Provider Internal Medicine Gastroenterology
PROC: 0DJ08ZZ Inspection of Upper Intestinal Tract, Via Natural or Artificial Opening Endoscopic (ICD-10-PCS; CPT 43235; principal; 2023-09-15 09:00)
DX: K22.70 Barrett's esophagus without dysplasia (principal); K21.9 Gastro-esophageal reflux disease without esophagitis; K44.9 Diaphragmatic hernia without obstruction or gangrene; Z79.01 Long term (current) use of anticoagulants
CPT/HCPCS: 43239; 88305; J2704; J7120

== ENCOUNTER 2023-10-02 06:34 | Outpatient (CLI) | payer MEDICARE, OTHER, SELFPAY ==
--- NOTE | ~2023-10-02 | CT_ITS ---
EXAMINATION:CT diagnostic chest w con DATE: 10/02/2023 07:18 INDICATION: Non-small cell right lung cancer. TECHNIQUE: Computed tomography (CT) of the chest was performed with 75 mL Omnipaque 350 intravenous c ontrast. Automated exposure control and iterative reconstruction technique were employed. The dose-le ngth product (DLP) was 324.69 mGy-cm. COMPARISON: Chest CT 03/30/2023, 09/16/20 FINDINGS: There is mild emphysema. There is mild bronchiectasis in the inferior lungs. There is chron ic peripheral septal thickening in the inferior lungs. There are changes of wedge resection in right upper lobe. Again seen is a 6 mm nodule at right major fissure, likely benign. Again seen are a few s cattered 2 mm nodules, likely benign. Again seen is a 3 mm nodule at left major fissure, likely benig n. A calcified right lung nodule and calcified right hilar and mediastinal lymph nodes are consistent with old granulomas disc disease. No pleural effusion. 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 There is a small sliding hiatal hernia. The heart size is normal. No pericardial effusion. There is a left chest pacer with leads in right atrium, right ventricle, and coronary sinus. There is mild thor acic spondylosis. IMPRESSION: 1. No specific evidence of metastatic disease. Reviewed, dictated and finalized at location A. TECHNICIAN
[2023-10-02 07:14] LABS: Estimated Glomerular Filt Rate > 60
== END 2023-10-02 06:35 | disposition home or self-care (01) ==
PROVIDERS: PCP Internal Medicine; Visit Provider Internal Medicine Hematology & Oncology
DX: C34.91 Malignant neoplasm of unspecified part of right bronchus or lung (principal)
CPT/HCPCS: 71260; Q9967

== ENCOUNTER 2023-10-09 12:39 | Outpatient (CLI) | payer MEDICARE, OTHER, SELFPAY ==
[2023-10-09 12:52] LABS: Basophils Absolute Auto 0.1 K/mm3 (0.0-0.1); Basophils Percent Auto 1.1 % (0.2-1.2); Eosinophils Absolute Auto 0.1 K/mm3 (0-0.3); Eosinophils Percent Auto 2.1 % (0-4.4); Hematocrit 41.9 % (42.0-52.0); Immature Granulocyte Absolute 0.01 K/mm3 (0.00-0.031); Immature Granulocyte Percent A 0.2 % (0-0.5); Lymphocytes Absolute Auto 1.74 K/mm3 (0.9-3.2); Lymphocytes Percent Auto 32.9 % (18.3-44.2); Mean Corpuscular HGB Conc 33.4 g/dl (32-36); Mean Corpuscular Hemoglobin 32.6 pg (26-34); Mean Corpuscular Volume 97.4 fl (80-100); Mean Platelet Volume 10.1 fl (7.4-10.4); Monocytes Absolute Auto 0.8 K/mm3 (0.1-0.6); Monocytes Percent Auto 15.5 % (2.6-8.5); Neutrophils Absolute Auto 2.6 K/mm3 (1.3-6.7); Neutrophils Percent Auto 48.2 % (45.5-73.1); Platelet Count Result 193 k/mm3 (150-375); Red Cell Distribution Width 12.6 % (11.5-14.5); White Blood Count 5.3 K/mm3 (4.5-10.0)
[2023-10-09 12:56] LABS: Blood Urea Nitrogen 22 mg/dL (8-26); Carbon Dioxide 27 mmol/L (22-30); Chloride 103 mmol/L (98-109); Estimated Glomerular Filt Rate > 60; Glucose 106 mg/dL (70-105); Potassium 4.3 mmol/L (3.5-4.9); Sodium 143 mmol/L (138-146)
[2023-10-09 16:33] LABS: Alanine Aminotransferase 29 U/L (6-50); Albumin Level 4.5 g/dL (3.5-5.1); Alkaline Phosphatase 110 U/L (38-126); Anion Gap 10 mmol/L (8-16); Aspartate Amino Transferase 32 U/L (17-59); Bilirubin,Total 1.1 mg/dL (0.2-1.3); Blood Urea Nitrogen 21 mg/dL (9-20); Calcium 9.6 mg/dL (8.4-10.2); Carbon Dioxide 29 mmol/L (22-30); Chloride 103 mmol/L (98-107); Estimated Glomerular Filt Rate > 60; Glucose 105 mg/dL (65-110); Potassium 4.4 mmol/L (3.4-5.0); Sodium 142 mmol/L (137-145)
== END 2023-10-09 12:40 | disposition home or self-care (01) ==
LOC: ANHLAB 12:41
PROVIDERS: PCP Internal Medicine; Visit Provider Internal Medicine Hematology & Oncology
DX: C34.91 Malignant neoplasm of unspecified part of right bronchus or lung (principal)
CPT/HCPCS: 36415; 80047; 80053; 85025

== ENCOUNTER 2024-04-01 06:34 | Outpatient (CLI) | payer MEDICARE, OTHER, SELFPAY ==
--- NOTE | ~2024-04-01 | CT_ITS ---
Clinical Indication: Lung cancer CT Scan of the Chest with Contrast: Technique: Contiguous sections were acquired throughout the chest after intravenous administration of 75 cc of Omnipaque 350. Dose reduction technique was used on this scan by utilizing automated exposu re control and iterative reconstruction technique. The dose-length product (DLP) was 306.76 mGy-cm. COMPARISON: 10/02/2023 Findings: There is no evidence of any significant mediastinal, hilar or axillary lymphadenopathy. No large cent ral pulmonary embolus seen. There is no evidence of aortic dissection or aneurysm. Aberrant right sub clavian artery noted. There is no evidence of pleural or pericardial effusion. Stable 6 mm nodule along the right major fissure. Stable postoperative change right upper lobe. Images through the upper abdomen reveal no abnormalities. Impression: No evidence for active malignancy or metastatic disease. Reviewed, dictated and finalized at [facility]. Impression: No evidence for active malignancy or metastatic disease.
[2024-04-01 07:05] LABS: Estimated Glomerular Filt Rate > 60
== END 2024-04-01 06:35 | disposition home or self-care (01) ==
PROVIDERS: PCP Internal Medicine; Visit Provider Internal Medicine Hematology & Oncology
DX: C34.91 Malignant neoplasm of unspecified part of right bronchus or lung (principal)
CPT/HCPCS: 71260; Q9967

== ENCOUNTER 2025-04-17 07:21 | Outpatient (CLI) | payer MEDICARE, OTHER, SELFPAY ==
--- NOTE | ~2025-04-17 | CT_ITS ---
Clinical Indication: Lung cancer CT Scan of the Chest with Contrast: Technique: Contiguous sections were acquired throughout the chest after intravenous administration of 75 cc of Omnipaque 350. Dose reduction technique was used on this scan by utilizing automated exposu re control and iterative reconstruction technique. The dose-length product (DLP) was 265.71 mGy-cm. COMPARISON: 04/01/2024 Findings: There is no evidence of any significant mediastinal, hilar or axillary lymphadenopathy. There is no f illing defect in the pulmonary arterial tree to suggest pulmonary embolus. There is no evidence of ao rtic dissection or aneurysm. There is no evidence of pleural or pericardial effusion. The lungs are clear. No pulmonary nodules or infiltrates are noted. Postoperative change at the media l right upper lobe is stable from prior exam. Stable nodule along the right major fissure. Images through the upper abdomen reveal no abnormalities. Impression: No evidence for active malignancy or metastatic disease. Stable postoperative change at the medial ri ght upper lobe. Reviewed, dictated and finalized at location . Impression: No evidence for active malignancy or metastatic disease. Stable postoperative c hange at the medial right upper lobe.
--- OUTSIDE RECORDS SUMMARY | 2025-04-17 07:29 | XMS_ITS ---
Author Organization [facility] Address [address] [place] [id number] Care Team Providers Care Type Inspector Name Role Phone Keri Raya MD Primary Care Provide r Girish Boykin MD Unavailable [phone] Devon Briseno MD Unavailable [phone] Active Problems Patient Care Coordination No te Formatting of this note migh t be different from the original. Referring provider: Dr. Anibal Pina Mr. Jeanna Felix is a 80-year-old with a lung nodule. Patient has a history of metastatic prostate cancer diagnosed in 2016 and status post hormone therapy. He was being followed for a lung nodule. He underwent a CT scan on 09/16/2020 which showed an enlarging right upper lobe lung nodule. On 10/05/2020 the patient underwent a bronchoscopy with biopsy. Final pathology was nondiagnostic for a mass lesion. Benign pulmonary elements were only present. On 03/08/2021 the patient underwent a chest CT with contrast which showed an interval increase in size of a right upper lobe pulmonary nodule, now measuring 2.4 x 1.8 cm. This previously measured 1.7 x 0.9 cm. There is increased spiculation with areas of cavitation. There are other scattered sub 5 mm pulmonary nodules which are stable. Patient is scheduled for a PET scan prior to his appointment today and pulmonary function testing after his appointment today. Patient has a history of V-tach and coronary artery disease. He currently has a pacemaker that was placed in 2009. Patient is on Xarelto. Patient presents today for further surgical evaluation. Review of systems: Genitourinary: Positive for erection difficulties and impotence. EENT: Positive for tinnitus. Cardiovascular: Positive for high blood pressure. All other systems reviewed and are negative. 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 Current Treatment and Therapy Plans Triptorelin Every 6 Months - Prostate* Plan Start Date:08/23/2021 Plan Provider:Anibal Pina MD Linked Problems Prostate cancer (HCC) Treatment Medications Current Day (Day 1 , Cycle 9 - Planned for 05/28/2025) Next Day (Day 1, Cycle 10 - Planned for 11/12/2025) triptorelin (TRELSTAR) triptorelin (TREL STAR) injection 22.5 mg triptorelin (TRELSTAR) injection 22.5 mg Past Treatment and Therapy Plans Oncology Chemotherapy Treatment Plan Name Start Date Discontinue Date Treatment Medications Discontinue Reason Plan Provider Cycles Leuprolide Every 6 Months - Prostate 05/21/2018 08/23/2021 leuprolide (ELIGARD)leupr olide acetate (6 month) (ELIGARD)leupr olide acetate (6 month) (LUPRON) syringe kit Provider Discretion Anibal Pina MD 7 of 8 cycles started Lifetime Dose Tracking * Chemical Lifetime Dose Automatic Entry Manual Entr y Air kerma at the reference point (Ka,r) 38 mGy 0 mGy 38 mGy DLP 2,665 mGycm 2,665 mGycm 0 mGycm
--- OUTSIDE RECORDS SUMMARY | 2025-04-17 07:29 | XMS_ITS | Continuity of Care Document ---
Author Name [facility] Organization [facility] Care Team Providers Care Pt Escort Name Role Phone [facility] Unavailable Unavailable Medications Combined list of outpatient medications from Department of Defense and Veterans Affairs facilities.Medications provided include 1) outpatient medications from the last 15 months, and 2) patient-reported medications. Medication Details Route Status Patient Instructions Prescription Expires Prescription Number Last Dispense Date Ordering Provider Order Date Order Qty Source ATORVASTATI N CALCIUM (atorvastat in calcium), 40 MG, TABLET, ORAL, [facility], 500 ea. BOTTLE Active [id number] 2023 90 Pharmac y Data Transac tion Service Facilit y DORZOLAMIDE HCL (dorzolamid e HCl), 2 %, DROPS, OPHTHALMIC, [facility],, 10 ml DROP BTL Cancele d [id number] : 2023 0 Pharmac y Data Transac tion Service Facilit y DORZOLAMIDE HCL (dorzolamid e HCl), 2 %, DROPS, OPHTHALMIC, [facility],, 10 ml DROP BTL Active [id number] 2023 10 Pharmac y Data Transac tion Service Facilit y DORZOLAMIDE HCL (dorzolamid e HCl), 2 %, DROPS, OPHTHALMIC, [facility],, 10 ml DROP BTL Active [id number] 2023 10 Pharmac y Data Transac tion Service Facilit y LATANOPROST (LATANOPROS T), 0.005%, DROPS, OPHTHALMIC, [facility], 2.5 ml DROP BTL Cancele d [id number] : 2023 0 Pharmac y Data Transac tion Service Facilit y Immunizations Combined list of available immunizations from the Department of Defense and Veterans Affairs facilities. 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 (MOD) Not Given COVID-19, mRNA, LNP-S, PF, 100 mcg or 50 mcg dose DoD COVID-19, mRNA, LNP-S, PF, 100 mcg or 50 mcg dose 2020 [facility], () Not Given COVID-19, mRNA, LNP-S, PF, 100 mcg or 50 mcg dose DoD Influenza vaccine, quadrivalent, adjuvanted 2020 [facility], () Not Given Influenza vaccine, quadrival ent, adjuvante d DoD Influenza vaccine, quadrivalent, adjuvanted 2019 [facility], () Not Given Influenza vaccine, quadrival ent, adjuvante d DoD influenza, trivalent, adjuvanted 2018 [facility], () Not Given influenza , trivalent , adjuvante d DoD pneumococcal polysaccharid e PPV23 2018 [facility], () Not Given pneumococ fatoumata polysacch aride PPV23 DoD Tdap 2017 [facility], () Not Given Tdap DoD Pneumococcal conjugate PCV 13 2017 [facility], () Not Given Pneumococ fatoumata conjugate PCV 13 DoD Influenza, high dose seasonal 2016 [facility], () Not Given Influenza , high dose seasonal DoD Pneumococcal conjugate PCV 13 2016 [facility], () Not Given Pneumococ fatoumata conjugate PCV 13 DoD Influenza, high dose seasonal 2015 [facility], () Not Given Influenza , high dose seasonal DoD Social History Combined list of available smoking, tobacco, and other social history from Department of Defense and Veterans Affairs facilities. Social History Type Response Date Comment Sourc e This section is an empty social history section. DoD
--- OUTSIDE RECORDS SUMMARY | 2025-04-17 07:29 | XMS_ITS | Referral Summary ---
Author Organization [facility] Address [address] [place] [address] Care Team Providers Care Teacher Dramatics Name Role Phone Keri Raya MD Primary Care Provide r Girish Boykin MD Unavailable [phone] Devon Briseno MD Unavailable [phone] Allergies No known active allergies Medications lisinopril (PRINIVIL,ZESTRIL ) 40 mg tabletIndications :hypertension Take 1 tablet (40 mg total) by mouth every morning 8 Active metoprolol (LOPRESSOR) 50 mg tabletIndications :hypertension Take 1 tablet (50 mg total) by mouth 2 (two) times a day 8 Active hydroCHLOROthiazi de (MICROZIDE) 12.5 mg capsuleIndication s:hypertension Take 1 capsule (12.5 mg total) by mouth every morning Active multivit-min/foli c/vit K/lycop (ONE-A-DAY MEN'S MULTIVITAMIN ORAL) Take 1 tablet by mouth every morning Active leuprolide acetate (LEUPROLIDE, 6 MONTH, IM) Inject 1 Dose into the muscle as instructed every 6 (six) months Given at physician's office: March 08, 2021 Active vitamin E (AQUASOL E, D-ALPHA TOCOPHEROL, ORAL) Take 180 mg by mouth every morning Active rivaroxaban (XARELTO) 20 mg tabletIndications :VTE Prophylaxis Take 1 tablet (20 mg total) by mouth nightly Active amLODIPine (NORVASC) 10 mg tabletIndications :hypertension Take 1 tablet (10 mg total) by mouth every morning Active garlic (GARLIQUE ORAL) Take 1 capsule by mouth every morning Active latanoprost (XALATAN) 0.005 % ophthalmic solutionIndicatio ns:open angle glaucoma Administer 1 drop into both eyes nightly Active dorzolamide (TRUSOPT) 2 % ophthalmic solution 1 drop 2 (two) times a day 2 Active magnesium oxide (MAG-OX) 400 mg (241.3 mg elemental magnesium) tabletIndications :hypomagnesemia Take 1 tablet (400 mg total) by mouth daily Active ascorbic acid (VITAMIN C) 1,000 mg tablet Take 1 tablet (1,000 mg total) by mouth 2 (two) times a day Active MELCHOR ROOT EXTRACT ORAL Take 550 mg by mouth daily Active omega 8-pga-vzo-fish oil 1,000 mg (120 mg-180 mg) capsule Take 1 capsule (1,000 mg total) by mouth 2 (two) times a day Active UNABLE TO FIND Med Name: Beet Root 1000mg daily Active atorvastatin (LIPITOR) 40 mg tablet Take 1 tablet (40 mg total) by mouth daily 2 Active rivaroxaban (XARELTO) 20 mg tablet Take 1 tablet (20 mg total) by mouth Active brinzolamide-brim onidine (SIMBRINZA) 0.2-1 % drops,suspension 1 drop daily Active Active Problems Patient Care Coordination No te [...] (03/23/2021): Added automatically from request for surgery [id number] Nodule of right lung 09/28/2020 Ventricular fibrillation 09/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 Overview (10/10/2019): Added automatically from request for surgery [id number] Prostate cancer 05/16/2018 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 Immunizations Immunization Administration Dates Next Due Influenza, Quad, Adjuvantate d, Intramuscular 08/06/2020 Influenza, Quadrivalent, Spl it, Preservative Free, Intramuscular 08/06/2020 Influenza, Trivalent, Adjuva nted, Intramuscular 10/07/2019,08/31/2018 Influenza, Trivalent, High D ose, Split, Preservative Free, Intramuscular 10/22/2017,09/04/2016 Influenza, Unspecified 09/20/2019,08/31/2018,02/2017 Moderna SARS-CoV-2 Monovalen t Vaccination (12+ YRS) 01/01/2021,12/03/2020 Pneumococcal Conjugate PCV 13 05/16/2018, 017,02/05/2015 Pneumococcal Polysaccharide PPV23 03/11/2019 Tdap 05/16/2018 ZOSTER Recombinant 06/07/2018 Social History Tobacco Use Types Packs/Day Years Used Date Smoking Tobacco: Never Smokeless Tobacco: Never Alcohol Use Standard Drinks/Week Comments Never 0 (1 standard drink = 0.6 oz pur e alcohol) AUDIT-C Answer Date Recorded Q1: How often do you have a drink containing alc ohol? Never 04/16/2021 Average Number of Drinks Not on file 021 Q3: How often do you have si x or more drinks on one occasion? 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 on file Last Filed Vital Signs Vital Sign Reading Time Taken Comments Blood Pressure 137/83 12/11/2024 9:07 AM REHAB THERAPIST Pulse 70 12/11/2024 9:07 AM REHAB THERAPIST Temperature 36.4 C (97.6 F) 12/11/2024 9:07 AM REHAB THERAPIST Respiratory Rate 18 12/11/2024 9:07 AM REHAB THERAPIST Oxygen Saturation 99% 12/11/2024 9:07 AM REHAB THERAPIST Inhaled Oxygen Concentration - - Weight 91.6 kg (202 lb) 12/11/2024 9:04 AM REHAB THERAPIST Height 167 cm (5' 5.75) 06/12/2024 9:23 AM CDT Body Mass Index 32.85 06/12/2024 9:23 AM CDT Plan of Treatment Not on file Medical Devices Implanted Type Area Tint Layer Device Identifier Shelf Expiration Date Model / Serial / Lot [employer] [id number] Ilivia 7 Hf-T Qp Df-4 Is4 Promri Cardiac Defibrillator - [id number] - [id number] Implanted:Qty: 1 on 10/11/2019 by Devon Briseno MD at [facility] ICD Left: Heart [employer] 10/19/2019 [id number] / [id number] / [employer] [id number] Sentus Promri Otw Quadripolar Left Ventricular Lead Icd L-85/49 - [id number] - [id number] Implanted:Qty: 1 on 10/11/2019 by Devon Briseno MD at [facility] Lead N/A: Heart [employer] 06/19/2021 [id number] / [id number] / [employer] [id number] Plexa Promri Lead Icd S 65 - [id number] - [id number] Implanted:Qty: 1 on 10/11/2019 by Devon Briseno MD at [facility] Lead N/A: Heart [employer] 06/19/2021 [id number] / [id number] / Pacemaker-04/30/20 10 Implanted: 010 (Quantity not on file) Pacemaker Left: Chest [employer] Insurance MEDICARE FOR LIFE MEDICARE FOR LIFE MEDICARE COMMERCIAL GENERIC Member Subscriber Plan / Payer (Ef fective 2015-Present) Name:Isidro Jeanna Sarwat Relation to Subscriber:Self Name:FelixSiennae Sarwat Payer ID:[id number] Group ID:Not on file Type:COMMERCIAL Address: [address] FOR LIFE WORKERS COMPENSATION GENERIC WORKERS COMPENSATION GENERIC WORKERS COMPENSATION GENERIC COMPENSATION Advance Directives For more information, please contact: [phone] * Full Code (Latest Code Status on File) Date Activated Date Inactivated Comments 04/16/2021 4:19 PM 04/17/2021 9:46 PM * Full Code Date Activated Date Inactivated Comments 11/01/2019 1:03 PM 11/03/2019 4:29 PM Care Teams Teacher Dramatics Relationship Specialty Start Date End Date Keri Raya MD [address] [address] PCP - General Internal Medicine 05/21/18 Girish Boykin MD [address] [address] Consulting Physician Pulmonary Disease 11/03/19 Devon Briseno MD [address] [place] [address] Citrus Picker Cardiology 03/23/21
--- OUTSIDE RECORDS SUMMARY | 2025-04-17 07:29 | XMS_ITS | Clinical Summary ---
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 Overview (10/10/2019): Added automatically from request for surgery [id number] Prostate cancer 05/16/2018 Impotence of organic origin [...] PPV23 03/11/2019 Tdap 05/16/2018 ZOSTER Recombinant 06/07/2018 Surgical History Surgery Date Site/Laterality Comments CARDIAC PACEMAKER PLACEMENT Pacemaker Placement - 06/2010 (Added by ZIGGY Krause) PROSTATECTOMY 11/20/2007 - 11/19/2008 + radiation COLONOSCOPY 11/20/2017 - 11/19/2018 ABDOMINAL SURGERY Medical History Medical History Date Comments Personal history of other di seases of the circulatory system History of hypertension - (A dded by ZIGGY Krause) Hypertension Hyperlipidemia V-tach (HCC) 2018 Syncope Cardiac arrhythmia GERD (gastroesophageal reflux disease) Cancer (HCC) Prostate ED (erectile dysfunction) Arthritis Coronary artery disease Glaucoma Family History Medical History Relation Name Comments Hypertension Father Stroke Father Hypertension Mother Stroke Mother Kidney disease Other 1 Renal Disease - (Added by TW Conv) Stroke Other 2 Stroke Syndrome - (Added by TW Conv) Relation Name Status Comments Father Mother Other 1 Other 2 Social History Tobacco Use Types Packs/Day Years [...] on file Legal Sex Male 10:03 AM HVAC/R INSTRUCTOR Gender Identity Not on file Sexual Orientation Not on file 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 on file Obstetrics History Last Filed Vital Signs Vital Sign Reading Time Taken Comments Blood Pressure 137/83 12/11/2024 9:07 AM HVAC/R INSTRUCTOR Pulse 70 12/11/2024 9:07 AM HVAC/R INSTRUCTOR Temperature 36.4 C (97.6 F) 12/11/2024 9:07 AM HVAC/R INSTRUCTOR Respiratory Rate 18 12/11/2024 9:07 AM HVAC/R INSTRUCTOR Oxygen Saturation 99% 12/11/2024 9:07 AM HVAC/R INSTRUCTOR Inhaled Oxygen Concentration - - Weight 91.6 kg (202 lb) 12/11/2024 9:04 AM HVAC/R INSTRUCTOR Height 167 cm (5' 5.75) 06/12/2024 9:23 AM CDT Body Mass Index 32.85 06/12/2024 9:23 AM CDT Plan of Treatment Health Maintenance Due Date Last Done Comments Depression Screening 1942 Hepatitis B Screening 1960 Well Visit 65+ 2007 Fall Risk Assessment 04/17/2022 04/17/2021 Covid-19 Vaccine (5 - 2023-2 5 season) 2024 03/22/2022, 09/13/2021, 01/01/2021, Additional history exists Influenza Vaccine (Season Ended) 2025 08/23/2021, 08/06/2020, 08/06/2020, Additional history exists DTaP/Tdap/Td Vaccine (2 - Td or Tdap) 05/16/2028 05/16/2018 Pneumococcal vaccine 65+ Completed 019, 05/16/2018, 05/01/2017, Additional history exists Zoster Vaccine Completed 05/17/2024, 06/07/2018 Medical Devices Implanted Type Area Delivery Rep Device Identifier Shelf Expiration Date Model / Serial / Lot [employer] [id number] Ilivia 7 Hf-T Qp Df-4 Is4 Promri Cardiac Defibrillator - [id number] - [id number] Implanted:Qty: 1 on 10/11/2019 by Devon Briseno MD at [facility] ICD Left: Heart [employer] 10/19/2019 [id number] / [id number] / [employer] [id number] Sentus Promri Otw Quadripolar Left Ventricular Lead Icd L-85/49 - [id number] - [id number] Implanted:Qty: 1 on 10/11/2019 by Devon Briseno MD at [facility] Lead N/A: Heart [employer] 06/19/2021 [id number] / [id number] / [employer] [id number] Plexa Promri Lead Icd S 65 - [id number] - [id number] Implanted:Qty: 1 on 10/11/2019 by Devon Briseno MD at [facility] Lead N/A: Heart [employer] 06/19/2021 [id number] / [id number] / Pacemaker-04/30/20 10 Implanted: 010 (Quantity not on file) Pacemaker Left: Chest [employer] Insurance MEDICARE FOR LIFE [place] [address] COMMERCIAL GENERIC FOR LIFE WORKERS COMPENSATION GENERIC WORKERS COMPENSATION GENERIC WORKERS COMPENSATION GENERIC COMPENSATION Advance Directives For more information, please contact: [phone] * Full Code (Latest Code Status on File) Date Activated Date Inactivated Comments 04/16/2021 4:19 PM 04/17/2021 9:46 PM * Full Code Date Activated Date Inactivated Comments 11/01/2019 1:03 PM 11/03/2019 4:29 PM Care Teams Bridge Repair Crew Person Relationship Specialty Start Date End Date Keri Raya MD [address] [address] PCP - General Internal Medicine 05/21/18 Girish Boykin MD [address] [address] Consulting Physician Pulmonary Disease 11/03/19 Devon Briseno MD [address] [place] [address] Marionette Performer Cardiology 03/23/21
--- OUTSIDE RECORDS SUMMARY | 2025-04-17 07:29 | XMS_ITS | Encounter Summary ---
Author Organization [facility] Address [address] [place] [address] Phone Care Team Providers Care Clinical Lab Clerk Name Role Phone Keri Raya MD Primary Care Provide r Girish Boykin MD Unavailable [phone] Devon Briseno MD Unavailable [phone] Encounter Details Date Type Department Care Team (Latest Contact Info) Description 07/05/2023 Orders Only [facility] Scanning, Provider Social History Tobacco Use Types Packs/Day Years [...] on file Legal Sex Male 10:03 AM PEDIATRIC PHYSICIAN Gender Identity Not on file Sexual Orientation Not on file 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 on file documented as of this encounter Plan of Treatment Not on file documented as of this encounter Procedures Procedure Name Priority Date/Time Associated Diagnosis Comments SCAN - LABS 07/05/2023 documented in this encounter Results * SCAN - LABS (07/05/2023) us Provider Scanning Final Result documented in this encounter Visit Diagnoses Not on filedocumented in this encounter Care Teams Clinical Lab Clerk Relationship Specialty Start Date End Date Keri Raya MD [address] [address] PCP - General Internal Medicine 05/21/18 Girish Boykin MD [address] [address] Consulting Physician Pulmonary Disease 11/03/19 Devon Briseno MD [address] [place] [address] Rn Neonatal Icu Cardiology 03/23/21 documented as of this encounter
--- OUTSIDE RECORDS SUMMARY | 2025-04-17 07:29 | XMS_ITS | Data Portability ---
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 Plan: The following were reviewed and explained to the patient: [facility] home sleep study 02/18/22, AHI = 11 [facility] titration sleep study 06/03/22 sleep onset = 37.5 minutes, REM onset = 338 minutes, Respironics large Rossana nasal mask @ 9 cmH2O, PLMI = 8 Ferritin 05/27/24 480 ng/mL Non-pharmacologic therapy options for periodic limb movement disorder include avoidance of aggravating drugs and substances, mental alerting activities, short daily hemodialysis for patients in renal failure, exercise, leg massage, stretching calf muscles, use of a weighted blanket and applied heat. Patient will cut down on caffeine intake. BUN, Creatinine, Vitamin E, Vitamin B12, RBC folate, Iron, TIBC, ESR, Magnesium, Hgb and Hct levels are within normal limits. A higher than normal ferritin level can be caused by chronic inflammatory disorder. We will hold off on dopaminergic therapy for now. PAP compliance downloaded and interpreted x 20 minutes. Data reviewed and explained to the patient. Average apnea/hypopnea index (AHI) is 1.3. Patient used PAP > 4 hours 100% of the time. PAP is set at 6-9 cmH2O. PAP will be reset at 7-9 cmH[address] Turn ramp off. Keep EPR off. Oxygen supplementation: none Patient is benefiting from PAP therapy. Encouraged patient to maintain PAP use more than 70% of the time. Statement of PAP use and benefits will be sent to the home care store. Educated the patient on problems and solutions associated with positive airway pressure (PAP) use. Difficulty tolerating pressure, mask leaks, intolerance of interface, nasal congestion, claustrophobic response, dry mouth, and unintentional mask removal during sleep were covered. Dry mouth is a normal occurrence for people who just start out on PAP therapy because they are not used to air blowing in to the throat to hold open. Dry mouth is exacerbated for people who wear nasal PAP mask and whose jaw drops open during sleep. Not only does this create a much less efficient therapy because of leakage, it also causes dry mouth. There are a couple solutions to help prevent this type of problem. A simple solution would be to wear a chinstrap which essentially holds the jaw in place. A second solution would be a switch to a full face mask which covers both the nose and mouth. Although this is another easy solution, using a full face mask for some could seem claustrophobic or confining. There is no silver bullet solution as no single mask is right for everybody. Sometimes it takes a bit of experimentation to find a PAP mask which best meets the patient's needs as well as fits comfortably. Another tactic is to use a humidifier on your PAP machine. Most new PAP machines have integrated humidifiers. Humidification is juan when dealing with symptoms of dry mouth because the humidifier can supply both warm and room temperate air. Even a small amount of humidity in the airflow will help nasal passages to stay hydrated. If a person is using both a full face mask and a PAP machine with a heated humidifier and is still experiencing dry mouth, an ill-fitted PAP mask might be causing the problem. Leakage can be caused by a mask that is to large or small, the wrong style mask, the cushion is degraded or simply because the mask's straps aren't adjusted correctly. If leakage occurs, dry air from the room can leak in while humidification escapes. The result is reduced humidification within the circuit and resulting in dry throat and mouth. Finally, beyond factors involving the PAP machine and mask, dry mouth can also be caused or worsened by dehydration. The general recommendation to during eight 8 oz. glasses of water a day might be too little for many people. When people drink large amounts of coffee or other caffeine beverages, or sweat a lot during the day, making sure to rehydrate is an important part of PAP therapy. Provided the patient with a list of local home care stores where positive airway pressure (PAP) units, accoutrement, and services are available. Home care store selection is based on patient's insurance carrier. Patient will setup an appointment with [facility] for supplies and pressure adjustments. A major predictor of success with use of PAP is follow-up with both the respiratory supplier and the treating physician. The download results can show the treating physician information about adherence to treatment, residual AHI while on treatment and presence of large mask leakage. This information is especially helpful if the patient has residual sleepiness despite treatment. General information on sleep disordered breathing, evaluation of sleep disordered breathing, treatment with PAP therapy, and living with PAP therapy were covered. We discussed with the patient the impact of weight on: Sleep disordered breathing Hyperlipidemia Hypertension NIXON Inguinal hernias Cervicothoracolumb ar spondylosis Knee OA We discussed with the patient the benefit of PAP therapy on: Sleep disordered breathing Glaucoma Hypertension Mild TR Mild RVE NIXON ED Educated the patient on sleep hygiene measures. Relaxing rituals to rest easy, understanding foods with positive and negative impact on sleep, creating a peaceful sleep environment, timing of exercise, using herbal sleep aids, and practicing sleep-friendly meditation were covered. To determine how much sleep is needed, the patient will assess where he falls on the spectrum, examine what lifestyle factor such as stress is affecting the quality and quantity of sleep. In general, adults need 7-9 hours of sleep. Educated the patient regarding foods that promote sleep. These include but are not limited to cherries, bananas, toast, oatmeal, and warm milk. Educated the patient regarding foods and drinks to avoid before bedtime. These include but are not limited to aged cheese, chocolate, spicy foods, tomato-based sauces, soy, ginseng tea and processed meat. Advocated influenza vaccination annually and pneumonia vaccination ANDRES. Advocated weight loss through diet and exercise. Patient's ideal body weight according to height and gender is up to 165 lbs. Encouraged patient to adjust caloric intake to maintain/achieve ideal body weight, emphasizing on fruits, vegetables, whole grains, and fat-free or low-fat products. These include lean meats, poultry, fish, beans, eggs, and nuts and foods that are low in saturated fats, trans-fats, cholesterol, salt (sodium), and glycemic index. Stressed the importance of regular exercise up to the patient's capacity limits. In this case, we recommend 20 min daily walking, 2 days a week of resistance training. Patient to monitor BP daily and bring records to PCP for further management. Follow-up: 1 year, May 2025 [email or web address] Not available 06/18/2024 08:46:20 07/15/2024 07/15/2024 01/12/2023: Folate/B12/A1C/TSH /FT4/Lipids/VIT D:WNL MCV 98.6H Gluc 125< - A1C 5.5, BUN 22 07/14/2023: Gluc 121 LDL 106 MCV 99.8 11/01/2023: Gluc 118, BUN 20 LDL 128 WBC 4.1, MCV 99.3 03/04/2024: A1C 5.3 Gluc 116, BUN 22 LDL 106 MCV99.5H 07/12/2024: A1C 5.4 Gluc 115 MCV 97.9 45 minutes spent with the patient and his , discussed is orders and his new insurance thru [facility] cam Not available 07/15/2024 14:36:56 11/06/2024 11/06/2024 01/12/2023: Folate/B12/A1C/TSH /FT4/Lipids/VIT D:WNL MCV 98.6H Gluc 125< - A1C 5.5, BUN 22 07/14/2023: Gluc 121 LDL 106 MCV 99.8 11/01/2023: Gluc 118, BUN 20 LDL 128 WBC 4.1, MCV 99.3 03/04/2024: A1C 5.3 Gluc 116, BUN 22 LDL 106 MCV99.5H 07/12/2024: A1C 5.4 Gluc 115 MCV 97.9 11/02/2204: A1C 5.6 Gluc 108, BUN 22 LDL 123 Urine micro alb 25.1 MCV 98.2 45 minutes spent with the patient and his , labs updated and reviewed, chart updated cam Not available 11/06/2024 09:37:37 12/24/2024 12/24/2024 01/12/2023: Folate/B12/A1C/TSH /FT4/Lipids/VIT D:WNL MCV 98.6H Gluc 125< - A1C 5.5, BUN 22 07/14/2023: Gluc 121 LDL 106 MCV 99.8 11/01/2023: Gluc 118, BUN 20 LDL 128 WBC 4.1, MCV 99.3 03/04/2024: A1C 5.3 Gluc 116, BUN 22 LDL 106 MCV99.5H 07/12/2024: A1C 5.4 Gluc 115 MCV 97.9 11/02/2204: A1C 5.6 Gluc 108, BUN 22 LDL 123 Urine micro alb 25.1 MCV 98.2 45 minutes spent with the patient and his , labs updated and reviewed, chart updated cam Not available 12/22/2024 17:03:32 02/05/2025 02/05/2025 01/12/2023: Folate/B12/A1C/TSH /FT4/Lipids/VIT D:WNL MCV 98.6H Gluc 125< - A1C 5.5, BUN 22 07/14/2023: Gluc 121 LDL 106 MCV 99.8 11/01/2023: Gluc 118, BUN 20 LDL 128 WBC 4.1, MCV 99.3 03/04/2024: A1C 5.3 Gluc 116, BUN 22 LDL 106 MCV99.5H 07/12/2024: A1C 5.4 Gluc 115 MCV 97.9 11/02/2204: A1C 5.6 Gluc 108, BUN 22 LDL 123 Urine micro alb 25.1 MCV 98.2 02/04/2025: A1C 5.4 Gluc 112 LDL 104 MCV 98.6 45 minutes spent with the patient and his , labs updated and reviewed, chart updated [email or web address] Not available 02/05/2025 10:34:57 Plan of Treatment Reminders Order Date Submit Date Provider Last Modified By Organization Details Last Modified Time Details Appointments Follow Up 2024 09:30A Blank ashford MD Not available Not available Not available Any 30 2024 07:30A Blank Lucio MD Not available Not available Not available Lab glycohemo globin, total, blood [address] (Lab), [address] [place], [address], 02/05/2025 14:00:21 microalbu min, urine [address] (Lab), [address] [place], [address], 02/05/2025 14:00:21 vitamin D, 25-hydrox y, total, serum [address] (Lab), [address] [place], [address], 02/05/2025 14:00:20 lipid panel, serum [address] (Lab), [address] [place], [address], 02/05/2025 14:00:20 CMP, serum or plasma [address] (Lab), [address] [place], [address], 02/05/2025 14:00:20 CBC w/ auto diff [address] (Lab), [address] [place], [address], 02/05/2025 14:00:20 TSH, serum or plasma [address] (Lab), [address] [place], [address], 02/05/2025 14:00:21 glycohemo globin, total, blood 2024 025 VANDANA [facility] (Lab), [address] [place], [address], 02/04/2025 12:55:31 microalbu min, urine 2024 025 [facility] (Lab), [address] [place], [address], 02/04/2025 14:19:31 vitamin D, 25-hydrox y, total, serum 2024 025 [facility] (Lab), [address] [place], [address], 01/10/2025 14:10:47 lipid panel, serum 2024 025 [facility] (Lab), [address] [place], [address], 02/04/2025 13:41:53 CMP, serum or plasma 2024 025 [facility] (Lab), [address] [place], [address], 02/04/2025 13:41:56 CBC w/ auto diff 2024 025 [facility] (Lab), [address] [place], [address], 02/04/2025 12:03:09 TSH, serum or plasma 2024 025 [facility] (Lab), [address] [place], [address], 01/10/2025 14:10:47 T4, free, serum 2024 025 [facility] (Lab), [address] [place], [address], 01/10/2025 14:10:47 glycohemo globin, total, blood 2023 024 [facility] (Lab), [address] [place], [address], 11/06/2024 10:20:47 microalbu min, urine 2023 [facility] (Lab), [address] [place], [address], 11/06/2024 10:20:47 vitamin D, 25-hydrox y, total, serum 2023 [facility] (Lab), [address] [place], [address], 11/06/2024 10:20:47 lipid panel, serum 2023 [facility] (Lab), [address] [place], [address], 11/06/2024 10:20:47 CMP, serum or plasma 2023 [facility] (Lab), [address] [place], [address], 11/06/2024 10:20:48 CBC w/ auto diff 2023 [facility] (Lab), [address] [place], [address], 11/06/2024 10:20:47 TSH, serum or plasma 2023 [facility] (Lab), [address] [place], [address], 11/06/2024 10:20:47 T4, free, serum 2023 [facility] (Lab), [address] [place], [address], 11/06/2024 10:20:48 lipid panel, serum 2023 024 VANDANA Not available 07/15/2024 16:50:45 CMP, serum or plasma 2023 024 VANDANA Not available 07/15/2024 16:50:46 CBC w/ auto diff 2023 024 VANDANA Not available 07/15/2024 16:50:43 TSH, serum or plasma 2023 024 VANDANA Not available 11/02/2024 15:08:05 T4, free, serum 2023 024 VANDANA Not available 11/11/2024 22:00:15 glycohemo globin, total, blood 2023 024 VANDANA Not available 07/15/2024 16:50:44 microalbu min, urine 2023 024 VANDANA Not available 07/15/2024 16:50:45 vitamin D, 25-hydrox y, total, serum 2023 024 [email or web address] Not available 01/14/2025 08:59:05 Referral cardiolog ist referral - Please call patient to schedule an appointme nt. Thank you. 2024 025 [place], [address] [facility] [place], [address], 02/05/2025 18:55:[address] referral - Please call patient to schedule an appointme nt. Thank you. 2024 025 MILADIS [facility], [address] [facility], [address], [place], [address], 02/05/2025 19:19:36 hand surgeon referral - Please call patient to schedule an appointme nt. Thank you. 2024 025 MILADIS Webb MD, [address] [facility], [address], [place], [address], 02/05/2025 18:35:25 urologist referral - Please call patient to schedule an appointme nt. Thank you. 2024 025 [facility], [address] [place] [address] [address], [place], [address], 01/30/2025 13:50:39 cardiolog ist referral - Please call patient to schedule an appointme nt. Thank you. 2024 025 [place], [address] [address], [place], [address], 04/17/2025 04:19:[address] referral - Please call patient to schedule an appointme nt. Thank you. 2024 025 [facility], [address] [facility], [address], [place], [address], 04/17/2025 04:19:27 general surgeon referral - Please call patient to schedule an appointme nt. Thank you. 2024 025 VANDANA Taylor MD, [address] [facility] [address], [address], 04/17/2025 04:19:27 urologist referral - Please call patient to schedule. 2023 024 [email or web address] Steven Gatica, [address] [facility], [facility] [address], [place], [address], 11/07/2024 14:09:17 cardiolog ist referral 2023 024 [email or web address] [place], [address] [address], [place], [address], 11/07/2024 10:59:[address] referral - Please call patient to schedule. 2023 024 [facility], [address] [facility], [address], [place], [address], 01/21/2025 15:34:10 general surgeon referral 2023 024 [email or web address] Jer Taylor MD, [address], [address], [place], [address], 11/07/2024 10:59:55 cardiolog ist referral 2023 024 [email or web address] [place], [address] [facility] [place], [address], 08/12/2024 11:10:[address] referral 2023 024 [email or web address] [facility], [address] [facility], [address], [place], [address], 11/07/2024 11:01:04 home health referral 2023 024 Not available 01/31/2025 09:46:47 general surgeon referral 2023 024 [email or web address] Jer Taylor MD, [address] [facility], [address], [place], [address], 08/12/2024 11:11:12 Procedures None recorded. Surgeries None recorded. Imaging None recorded. Medication Orders None recorded. Patient TargetsNo targets recorded. 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 Referring Physician: Gloria Sanderson Medicine, Encounter Date: 11/06/2024 Stonework Supervisor Referral for Ca rdiac arrhythmia Please call patient to schedule an appointment. Thank you. Referring Physician: Nithin Raya Internal Medicine, Encounter Date: 12/24/2024 General Surgeon Referral for Skin lesion Please call patient to schedule an appointment. Thank you. 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 Thank you. 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 Thank you. Referring Physician: Gloria Sanderson Medicine, Encounter Date: 12/24/2024 Stonework Supervisor Referral for Ca rdiac arrhythmia Please call patient to schedule an appointment. Thank you. 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 Thank you. Referring Physician: Nithin Raya, Internal Medicine, Encounter Date: 02/05/2025 Hand Surgeon Referral for Pa in of bilateral hands Please call patient to schedule an appointment. Thank you. Referring Physician: Nithin Raya, Internal Medicine, Encounter Date: 02/05/2025 Results Created Date Observation Date Name Description Value Unit Range Abnormal Flag Note LastModifiedBy Organization Detail LastModifiedTime 07/12/20 24 07/12/2024 CBC/C OMPLE TE BLD COUNT W/DIF F white blood cells 5.0 x10'3 /uL 4.2-10 .8 Not Available [facility] (Lab) [address] [place], [address], 07/12/2024 11:36:06 07/12/20 24 07/12/2024 CBC/C OMPLE TE BLD COUNT W/DIF F red blood cells 4.23 x10'6 /uL 4.10-5 .80 Not Available [facility] (Lab) [address] [place], [address], 07/12/2024 11:36:06 07/12/20 24 07/12/2024 CBC/C OMPLE TE BLD COUNT W/DIF F hemoglobin 13.7 g/dL 13.2-1 7.0 Not Available [facility] (Lab) [address] [place], [address], 07/12/2024 11:36:06 07/12/20 24 07/12/2024 CBC/C OMPLE TE BLD COUNT W/DIF F hematocrit 41.4 % 39.3-5 0.0 Not Available [facility] (Lab) [address] [place], [address], 07/12/2024 11:36:06 07/12/20 24 07/12/2024 CBC/C OMPLE TE BLD COUNT W/DIF F mean red cell volume 97.9 fL 80.0-9 7.0 high Not Available [facility] (Lab) [address] [place], [address], 07/12/2024 11:36:06 07/12/20 24 07/12/2024 CBC/C OMPLE TE BLD COUNT W/DIF F mean red cell hemoglobin 32.4 pg 27.0-3 3.0 Not Available [facility] (Lab) [address] [place], [address], 07/12/2024 11:36:06 07/12/20 24 07/12/2024 CBC/C OMPLE TE BLD COUNT W/DIF F mean RBC HGB concentratio n 33.1 g/dL 31.0-3 6.0 Not Available [facility] (Lab) [address] [place], [address], 07/12/2024 11:36:06 07/12/20 24 07/12/2024 CBC/C OMPLE TE BLD COUNT W/DIF F red cell distribution width 12.4 % 11.8-1 5.5 Not Available [facility] (Lab) [address] [place], [address], 07/12/2024 11:36:06 07/12/20 24 07/12/2024 CBC/C OMPLE TE BLD COUNT W/DIF F platelets 195 x10'3 /uL 150-40 0 Not Available [facility] (Lab) [address] [place], [address], 07/12/2024 11:36:06 07/12/20 24 07/12/2024 CBC/C OMPLE TE BLD COUNT W/DIF F mean platelet volume 11.3 fL 9.0-12 .4 Not Available [facility] (Lab) [address] [place], [address], 07/12/2024 11:36:06 07/12/20 24 07/12/2024 CBC/C OMPLE TE BLD COUNT W/DIF F neutrophils 57.9 % 39.0-7 2.0 Not Available [facility] (Lab) [address] [place], [address], 07/12/2024 11:36:06 07/12/20 24 07/12/2024 CBC/C OMPLE TE BLD COUNT W/DIF F lymphocytes 26.7 % 16.0-4 7.0 Not Available [facility] (Lab) [address] [place], [address], 07/12/2024 11:36:06 07/12/20 24 07/12/2024 CBC/C OMPLE TE BLD COUNT W/DIF F monocytes 12.6 % 5.0-12 .0 high Not Available [facility] (Lab) [address] [place], [address], 07/12/2024 11:36:06 07/12/20 24 07/12/2024 CBC/C OMPLE TE BLD COUNT W/DIF F eosinophils 1.8 % 1.0-7. 0 Not Available [facility] (Lab) [address] [place], [address], 07/12/2024 11:36:06 07/12/20 24 07/12/2024 CBC/C OMPLE TE BLD COUNT W/DIF F basophils 0.8 % 0.0-2. 0 Not Available [facility] (Lab) [address] [place], [address], 07/12/2024 11:36:06 07/12/20 24 07/12/2024 CBC/C OMPLE TE BLD COUNT W/DIF F immature granulocytes 0.2 % 0.00-0 .50 Not Available [facility] (Lab) [address] [place], [address], 07/12/2024 11:36:06 07/12/20 24 07/12/2024 CBC/C OMPLE TE BLD COUNT W/DIF F neutrophils, absolute count 2.90 x10'3 /uL 1.5-8. 0 Not Available [facility] (Lab) [address] [place], [address], 07/12/2024 11:36:06 07/12/20 24 07/12/2024 CBC/C OMPLE TE BLD COUNT W/DIF F lymphocytes, absolute count 1.34 x10'3 /uL 1.07-3 .43 Not Available [facility] (Lab) [address] [place], [address], 07/12/2024 11:36:06 07/12/20 24 07/12/2024 CBC/C OMPLE TE BLD COUNT W/DIF F monocytes, absolute count 0.63 x10'3 /uL 0.29-0 .99 Not Available [facility] (Lab) [address] [place], [address], 07/12/2024 11:36:06 07/12/20 24 07/12/2024 CBC/C OMPLE TE BLD COUNT W/DIF F eosinophils, absolute count 0.09 x10'3 /uL 0.02-0 .53 Not Available [facility] (Lab) [address] [place], [address], 07/12/2024 11:36:06 07/12/20 24 07/12/2024 CBC/C OMPLE TE BLD COUNT W/DIF F basophils, absolute count 0.04 x10'3 /uL 0.01-0 .08 Not Available [facility] (Lab) [address] [place], [address], 07/12/2024 11:36:06 07/12/20 24 07/12/2024 CBC/C OMPLE TE BLD COUNT W/DIF F immature granulocytes ,absolute 0.01 x10'3 /uL 0.00-0 .05 Not Available [facility] (Lab) [address] [place], [address], 07/12/2024 11:36:06 07/12/20 24 07/12/2024 CBC/C OMPLE TE BLD COUNT W/DIF F nucleated red blood cells 0.0 % -0 Not Available [facility] (Lab) [address] [place], [address], 07/12/2024 11:36:06 07/12/20 24 07/12/2024 CBC/C OMPLE TE BLD COUNT W/DIF F NRBC# 0.00 x10'3 /uL Not Available [facility] (Lab) [address] [place], [address], 07/12/2024 11:36:06 07/12/20 24 07/12/2024 HEMOG LOBIN A1C HA1C 5.4 % 4.0-6. 0 Diabe lewis Scree paola Crite carole: <5.7% Consi stent with absen ce of diabe lewis 5.7-6 .4% Consi stent with incre ased risk for diabe lewis (pred iabet es) >OR=6 .5% Consi stent with diabe lewis REFER ENCE: Diabe lewis Care 2016, 39(Edmonds ppl.1 ):s13 -s22 Not Available [facility] (Lab) [address] [place], [address], 07/12/2024 12:18:56 07/12/20 24 07/12/2024 MICRO ALBUM IN RANDO M URINE microalbumin , urine <6.0 mg/L 0.0-16 .6 Not Available [facility] (Lab) [address] [place], [address], 07/12/2024 12:22:17 07/12/20 24 07/12/2024 LIPID PANEL cholesterol 166 mg/dL 140-19 9 NIH FABBY NSUS RECOM MENDA TION FOR VIGNESH STERO L: ADULT CHILD LOW RISK: <200 <170 BORDE RLINE : <200- 239 ----- HIGH RISK: >240 >200 Not Available [facility] (Lab) [address] [place], [address], 07/12/2024 12:23:33 07/12/20 24 07/12/2024 LIPID PANEL triglyceride s 88 mg/dL 0-150 NIH FABBY NSUS REPOR T RECOM MENDA TION FOR TRIGL YCERI YOLANDA: ADULT CHILD LOW RISK: <150 ----- BODER LINE: 150-1 99 ----- HIGH RISK: >200 ----- Not Available [facility] (Lab) [address] [place], [address], 07/12/2024 12:23:33 07/12/20 24 07/12/2024 LIPID PANEL HDL cholesterol 50 mg/dL 40- Not Available [facility] (Lab) [address] [place], [address], 07/12/2024 12:23:33 07/12/20 24 07/12/2024 LIPID PANEL LDL cholesterol, calculated 98 mg/dL 0-130 NIH FABBY NSUS REPOR T RECOM MENDA TIONS FOR LDL: ADULT CHILD LOW RISK <130 <110 (OPTI MAL LDL) <100 ----- ROMEODE RLINE : 130-1 59 ----- HIGH RISK: >160 >130 A TRIGL YCERI DE RESUL T >400 INVAL IDATE S THE CALCU LATIO N FOR LDL FRACT IONAT ION - THE LDL RESUL T WILL NOT BE REPOR COLETTE. Not Available [facility] (Lab) [address] [place], [address], 07/12/2024 12:23:33 07/12/20 24 07/12/2024 COMPR EHENS RITO METAB OLIC PANEL sodium 139 mmol/ L 137-14 5 Not Available [facility] (Lab) [address] [place], [address], 07/12/2024 12:23:41 07/12/20 24 07/12/2024 COMPR EHENS RITO METAB OLIC PANEL potassium 4.1 mmol/ L 3.5-5. 1 Not Available [facility] (Lab) [address] [place], [address], 07/12/2024 12:23:41 07/12/20 24 07/12/2024 COMPR EHENS RITO METAB OLIC PANEL chloride 106 mmol/ L 98-107 Not Available [facility] (Lab) [address] [place], [address], 07/12/2024 12:23:41 07/12/20 24 07/12/2024 COMPR EHENS RITO METAB OLIC PANEL carbon dioxide 27 mmol/ L 22-30 Not Available [facility] (Lab) [address] [place], [address], 07/12/2024 12:23:41 07/12/20 24 07/12/2024 COMPR EHENS RITO METAB OLIC PANEL anion gap 10.1 mmol/ L 14-22 low Not Available [facility] (Lab) [address] [place], [address], 07/12/2024 12:23:41 07/12/20 24 07/12/2024 COMPR EHENS RITO METAB OLIC PANEL glucose 115 mg/dL 70-99 high Not Available [facility] (Lab) [address] [place], [address], 07/12/2024 12:23:41 07/12/20 24 07/12/2024 COMPR EHENS RITO METAB OLIC PANEL BUN 19 mg/dL 8-19 Not Available [facility] (Lab) [address] [place], [address], 07/12/2024 12:23:41 07/12/20 24 07/12/2024 COMPR EHENS RITO METAB OLIC PANEL creatinine 0.97 mg/dL 0.66-1 .25 Not Available [facility] (Lab) [address] [place], [address], 07/12/2024 12:23:41 07/12/20 24 07/12/2024 COMPR EHENS RITO METAB OLIC PANEL GFR >60 Refer ence Range : [place] ge GFR Healt hy Adult : >60 mL/mi n/1.7 3 m2 Chron ic Kidne y Disea se: 15-60 mL/mi n/1.7 3 m2 Kidne y Failu re: <15/m L/min /1.73 m2 www.n iddk. nih.g ov The MDRD study equat ion has not been valid ated in child lorene <18 years of age; pregn ant women ; the elder ly >85 years of age; or in some racia l or ethni c subgr oups, such as Hispa nics. Outsi de the valid ated susi eters , estim ated GFR is less accur ate, requi ring clini fatoumata judgm ent on a case- by-ca se basis . Clini fatoumata inter preta tion for other races and ages must be made by the clini mick. The MDRD study equat ion has not been valid ated for the evalu ation of serum creat inine relat ed to nutri liliana l statu s or medic ation usage . For perso ns <18 years of age, a pedia tric GFR calcu lator is avail able on the [facility] websi te: https ://addy lopez.viridiana garcia/pr michele hernandez s/kdo qi/gf r_cal culat or Not Available [facility] (Lab) [address] [place], [address], 07/12/2024 12:23:41 07/12/20 24 07/12/2024 COMPR EHENS RITO METAB OLIC PANEL alkaline phosphatase 120 U/L 38-126 Not Available [facility] (Lab) [address] [place], [address], 07/12/2024 12:23:41 07/12/20 24 07/12/2024 COMPR EHENS RITO METAB OLIC PANEL alanine aminotransfe rase 25 U/L 0-50 Not Available [facility] (Lab) [address] [place], [address], 07/12/2024 12:23:41 07/12/20 24 07/12/2024 COMPR EHENS RITO METAB OLIC PANEL aspartate aminotransfe rase 30 U/L 15-46 Not Available [facility] (Lab) [address] [place], [address], 07/12/2024 12:23:41 07/12/20 24 07/12/2024 COMPR EHENS RITO METAB OLIC PANEL bilirubin, total 0.80 mg/dL 0.20-1 .30 Not Available [facility] (Lab) [address] [place], [address], 07/12/2024 12:23:41 07/12/20 24 07/12/2024 COMPR EHENS RITO METAB OLIC PANEL calcium 9.2 mg/dL 8.4-10 .2 Not Available [facility] (Lab) [address] [place], [address], 07/12/2024 12:23:41 07/12/20 24 07/12/2024 COMPR EHENS RITO METAB OLIC PANEL total protein 7.5 g/dL 6.3-8. 2 Not Available [facility] (Lab) [address] [place], [address], 07/12/2024 12:23:41 07/12/20 24 07/12/2024 COMPR EHENS RITO METAB OLIC PANEL albumin 4.0 g/dL 3.0-4. 4 Not Available [facility] (Lab) [address] [place], [address], 07/12/2024 12:23:41 07/12/20 24 07/12/2024 COMPR EHENS RITO METAB OLIC PANEL globulin 3.5 g/dL 2.6-4. 2 Not Available [facility] (Lab) [address] [place], [address], 07/12/2024 12:23:41 07/12/20 24 07/12/2024 COMPR EHENS RITO METAB OLIC PANEL A/G ratio 1.1 ratio 1.0-2. 0 Not Available [facility] (Lab) [address] [place], [address], 07/12/2024 12:23:41 07/12/20 24 07/12/2024 T4 FREE free T4 0.98 NG/dL 0.78-2 .19 Not Available [facility] (Lab) [address] [place], [address], 07/12/2024 13:18:46 07/12/20 24 07/12/2024 VITAM IN D 25-HY DROXY [id number] 46.3 NG/mL 30-100 Vitam in D Statu s: Defic ient: <20 ng/mL Insuf ficie nt: 20-29 ng/mL Suffi cient : 30-10 0 ng/mL Not Available [facility] (Lab) [address] [place], [address], 07/12/2024 13:18:56 07/12/20 24 07/12/2024 TSH thyroid-stim ulating hormone 1.020 uIU/m L 0.465- 4.680 Not Available [facility] (Lab) [address] [place], [address], 07/12/2024 13:20:49 11/02/20 24 11/02/2024 CBC/C OMPLE TE BLD COUNT W/DIF F white blood cells 6.1 x10'3 /uL 4.2-10 .8 Not Available [facility] (Lab) [address] [place], [address], 11/02/2024 14:16:11 11/02/20 24 11/02/2024 CBC/C OMPLE TE BLD COUNT W/DIF F red blood cells 4.35 x10'6 /uL 4.10-5 .80 Not Available [facility] (Lab) [address] [place], [address], 11/02/2024 14:16:11 11/02/20 24 11/02/2024 CBC/C OMPLE TE BLD COUNT W/DIF F hemoglobin 14.1 g/dL 13.2-1 7.0 Not Available [facility] (Lab) [address] [place], [address], 11/02/2024 14:16:11 11/02/20 24 11/02/2024 CBC/C OMPLE TE BLD COUNT W/DIF F hematocrit 42.7 % 39.3-5 0.0 Not Available [facility] (Lab) [address] [place], [address], 11/02/2024 14:16:11 11/02/20 24 11/02/2024 CBC/C OMPLE TE BLD COUNT W/DIF F mean red cell volume 98.2 fL 80.0-9 7.0 high Not Available [facility] (Lab) [address] [place], [address], 11/02/2024 14:16:11 11/02/20 24 11/02/2024 CBC/C OMPLE TE BLD COUNT W/DIF F mean red cell hemoglobin 32.4 pg 27.0-3 3.0 Not Available [facility] (Lab) [address] [place], [address], 11/02/2024 14:16:11 11/02/20 24 11/02/2024 CBC/C OMPLE TE BLD COUNT W/DIF F mean RBC HGB concentratio n 33.0 g/dL 31.0-3 6.0 Not Available [facility] (Lab) [address] [place], [address], 11/02/2024 14:16:11 11/02/20 24 11/02/2024 CBC/C OMPLE TE BLD COUNT W/DIF F red cell distribution width 12.2 % 11.8-1 5.5 Not Available [facility] (Lab) [address] [place], [address], 11/02/2024 14:16:11 11/02/20 24 11/02/2024 CBC/C OMPLE TE BLD COUNT W/DIF F platelets 192 x10'3 /uL 150-40 0 Not Available [facility] (Lab) [address] [place], [address], 11/02/2024 14:16:11 11/02/20 24 11/02/2024 CBC/C OMPLE TE BLD COUNT W/DIF F mean platelet volume 10.2 fL 9.0-12 .4 Not Available [facility] (Lab) [address] [place], [address], 11/02/2024 14:16:11 11/02/20 24 11/02/2024 CBC/C OMPLE TE BLD COUNT W/DIF F neutrophils 58.8 % 39.0-7 2.0 Not Available [facility] (Lab) [address] [place], [address], 11/02/2024 14:16:11 11/02/20 24 11/02/2024 CBC/C OMPLE TE BLD COUNT W/DIF F lymphocytes 24.2 % 16.0-4 7.0 Not Available [facility] (Lab) [address] [place], [address], 11/02/2024 14:16:11 11/02/20 24 11/02/2024 CBC/C OMPLE TE BLD COUNT W/DIF F monocytes 12.5 % 5.0-12 .0 high Not Available [facility] (Lab) [address] [place], [address], 11/02/2024 14:16:11 11/02/20 24 11/02/2024 CBC/C OMPLE TE BLD COUNT W/DIF F eosinophils 3.0 % 1.0-7. 0 Not Available [facility] (Lab) [address] [place], [address], 11/02/2024 14:16:11 11/02/20 24 11/02/2024 CBC/C OMPLE TE BLD COUNT W/DIF F basophils 1.2 % 0.0-2. 0 Not Available [facility] (Lab) [address] [place], [address], 11/02/2024 14:16:11 11/02/20 24 11/02/2024 CBC/C OMPLE TE BLD COUNT W/DIF F immature granulocytes 0.3 % 0.00-0 .50 Not Available [facility] (Lab) [address] [place], [address], 11/02/2024 14:16:11 11/02/20 24 11/02/2024 CBC/C OMPLE TE BLD COUNT W/DIF F neutrophils, absolute count 3.57 x10'3 /uL 1.5-8. 0 Not Available [facility] (Lab) [address] [place], [address], 11/02/2024 14:16:11 11/02/20 24 11/02/2024 CBC/C OMPLE TE BLD COUNT W/DIF F lymphocytes, absolute count 1.47 x10'3 /uL 1.07-3 .43 Not Available [facility] (Lab) [address] [place], [address], 11/02/2024 14:16:11 11/02/20 24 11/02/2024 CBC/C OMPLE TE BLD COUNT W/DIF F monocytes, absolute count 0.76 x10'3 /uL 0.29-0 .99 Not Available [facility] (Lab) [address] [place], [address], 11/02/2024 14:16:11 11/02/20 24 11/02/2024 CBC/C OMPLE TE BLD COUNT W/DIF F eosinophils, absolute count 0.18 x10'3 /uL 0.02-0 .53 Not Available [facility] (Lab) [address] [place], [address], 11/02/2024 14:16:11 11/02/20 24 11/02/2024 CBC/C OMPLE TE BLD COUNT W/DIF F basophils, absolute count 0.07 x10'3 /uL 0.01-0 .08 Not Available [facility] (Lab) [address] [place], [address], 11/02/2024 14:16:11 11/02/20 24 11/02/2024 CBC/C OMPLE TE BLD COUNT W/DIF F immature granulocytes ,absolute 0.02 x10'3 /uL 0.00-0 .05 Not Available [facility] (Lab) [address] [place], [address], 11/02/2024 14:16:11 11/02/20 24 11/02/2024 CBC/C OMPLE TE BLD COUNT W/DIF F nucleated red blood cells 0.0 % -0 Not Available [facility] (Lab) [address] [place], [address], 11/02/2024 14:16:11 11/02/20 24 11/02/2024 CBC/C OMPLE TE BLD COUNT W/DIF F NRBC# 0.00 x10'3 /uL Not Available [facility] (Lab) [address] [place], [address], 11/02/2024 14:16:11 11/02/20 24 11/02/2024 MICRO ALBUM IN RANDO M URINE microalbumin , urine 25.1 mg/L 0.0-16 .6 high Not Available [facility] (Lab) [address] [place], [address], 11/02/2024 14:44:26 11/02/20 24 11/02/2024 LIPID PANEL cholesterol 198 mg/dL 140-19 9 NIH FABBY NSUS RECOM MENDA TION FOR VIGNESH STERO L: ADULT CHILD LOW RISK: <200 <170 BORDE RLINE : <200- 239 ----- HIGH RISK: >240 >200 Not Available [facility] (Lab) [address] [place], [address], 11/02/2024 14:44:41 11/02/20 24 11/02/2024 LIPID PANEL triglyceride s 118 mg/dL 0-150 NIH FABBY NSUS REPOR T RECOM MENDA TION FOR TRIGL YCERI YOLANDA: ADULT CHILD LOW RISK: <150 ----- BODER LINE: 150-1 99 ----- HIGH RISK: >200 ----- Not Available [facility] (Lab) [address] [place], [address], 11/02/2024 14:44:41 11/02/20 24 11/02/2024 LIPID PANEL HDL cholesterol 51 mg/dL 40- Not Available [facility] (Lab) [address] [place], [address], 11/02/2024 14:44:41 11/02/20 24 11/02/2024 LIPID PANEL LDL cholesterol, calculated 123 mg/dL 0-130 NIH FABBY NSUS REPOR T RECOM MENDA TIONS FOR LDL: ADULT CHILD LOW RISK <130 <110 (OPTI MAL LDL) <100 ----- BORDE RLINE : 130-1 59 ----- HIGH RISK: >160 >130 A TRIGL YCERI DE RESUL T >400 INVAL IDATE S THE CALCU LATIO N FOR LDL FRACT IONAT ION - THE LDL RESUL T WILL NOT BE REPOR COLETTE. Not Available [facility] (Lab) [address] [place], [address], 11/02/2024 14:44:41 11/02/20 24 11/02/2024 COMPR EHENS RITO METAB OLIC PANEL sodium 141 mmol/ L 137-14 5 Not Available [facility] (Lab) [address] [place], [address], 11/02/2024 14:44:47 11/02/20 24 11/02/2024 COMPR EHENS RITO METAB OLIC PANEL potassium 4.2 mmol/ L 3.5-5. 1 Not Available [facility] (Lab) [address] [place], [address], 11/02/2024 14:44:47 11/02/20 24 11/02/2024 COMPR EHENS RITO METAB OLIC PANEL chloride 108 mmol/ L 98-107 high Not Available [facility] (Lab) [address] [place], [address], 11/02/2024 14:44:47 11/02/20 24 11/02/2024 COMPR EHENS RITO METAB OLIC PANEL carbon dioxide 28 mmol/ L 22-30 Not Available [facility] (Lab) [address] [place], [address], 11/02/2024 14:44:47 11/02/20 24 11/02/2024 COMPR EHENS RITO METAB OLIC PANEL anion gap 9.2 mmol/ L 14-22 low Not Available [facility] (Lab) [address] [place], [address], 11/02/2024 14:44:47 11/02/20 24 11/02/2024 COMPR EHENS RITO METAB OLIC PANEL glucose 108 mg/dL 70-99 high Not Available [facility] (Lab) [address] [place], [address], 11/02/2024 14:44:47 11/02/20 24 11/02/2024 COMPR EHENS RITO METAB OLIC PANEL BUN 22 mg/dL 8-19 high Not Available [facility] (Lab) [address] [place], [address], 11/02/2024 14:44:47 11/02/20 24 11/02/2024 COMPR EHENS RITO METAB OLIC PANEL creatinine 1.01 mg/dL 0.66-1 .25 Not Available [facility] (Lab) [address] [place], [address], 11/02/2024 14:44:47 11/02/20 24 11/02/2024 COMPR EHENS RITO METAB OLIC PANEL GFR >60 Refer ence Range : [place] ge GFR Healt hy Adult : >60 mL/mi n/1.7 3 m2 Chron ic Kidne y Disea se: 15-60 mL/mi n/1.7 3 m2 Kidne y Failu re: <15/m L/min /1.73 m2 www.n iddk. nih.g ov The MDRD study equat ion has not been valid ated in child lorene <18 years of age; pregn ant women ; the elder ly >85 years of age; or in some racia l or ethni c subgr oups, such as Hispa nics. Outsi de the valid ated susi eters , estim ated GFR is less accur ate, requi ring clini fatoumata judgm ent on a case- by-ca se basis . Clini fatoumata inter preta tion for other races and ages must be made by the clini mick. The MDRD study equat ion has not been valid ated for the evalu ation of serum creat inine relat ed to nutri liliana l statu s or medic ation usage . For perso ns <18 years of age, a pedia tric GFR calcu lator is avail able on the F websi te: https ://addy w.kid jessica.o rg/pr ofess ional s/kdo qi/gf r_cal culat or Not Available [facility] (Lab) [address] [place], [address], 11/02/2024 14:44:47 11/02/20 24 11/02/2024 COMPR EHENS RITO METAB OLIC PANEL alkaline phosphatase 121 U/L 38-126 Not Available [facility] (Lab) [address] [place], [address], 11/02/2024 14:44:47 11/02/20 24 11/02/2024 COMPR EHENS RITO METAB OLIC PANEL alanine aminotransfe rase 31 U/L 0-50 Not Available [facility] (Lab) [address] [place], [address], 11/02/2024 14:44:47 11/02/20 24 11/02/2024 COMPR EHENS RITO METAB OLIC PANEL aspartate aminotransfe rase 39 U/L 15-46 Not Available [facility] (Lab) [address] [place], [address], 11/02/2024 14:44:47 11/02/20 24 11/02/2024 COMPR EHENS RITO METAB OLIC PANEL bilirubin, total 1.20 mg/dL 0.20-1 .30 Not Available [facility] (Lab) [address] [place], [address], 11/02/2024 14:44:47 11/02/20 24 11/02/2024 COMPR EHENS RITO METAB OLIC PANEL calcium 9.3 mg/dL 8.4-10 .2 Not Available [facility] (Lab) [address] [place], [address], 11/02/2024 14:44:47 11/02/20 24 11/02/2024 COMPR EHENS RITO METAB OLIC PANEL total protein 8.0 g/dL 6.3-8. 2 Not Available [facility] (Lab) [address] [place], [address], 11/02/2024 14:44:47 11/02/20 24 11/02/2024 COMPR EHENS RITO METAB OLIC PANEL albumin 4.4 g/dL 3.0-4. 4 Not Available [facility] (Lab) [address] [place], [address], 11/02/2024 14:44:47 11/02/20 24 11/02/2024 COMPR EHENS RITO METAB OLIC PANEL globulin 3.6 g/dL 2.6-4. 2 Not Available [facility] (Lab) [address] [place], [address], 11/02/2024 14:44:47 11/02/20 24 11/02/2024 COMPR EHENS RITO METAB OLIC PANEL A/G ratio 1.2 ratio 1.0-2. 0 Not Available [facility] (Lab) [address] [place], [address], 11/02/2024 14:44:47 11/02/20 24 11/02/2024 HEMOG LOBIN A1C HA1C 5.6 % 4.0-6. 0 Diabe lewis Scree paola Crite carole: <5.7% Consi stent with absen ce of diabe lewis 5.7-6 .4% Consi stent with incre ased risk for diabe lewis (pred iabet es) >OR=6 .5% Consi stent with diabe lewis REFER ENCE: Diabe lewis Care 2016, 39(Edmonds ppl.1 ):s13 -s22 Not Available [facility] (Lab) [address] [place], [address], 11/02/2024 15:03:12 11/02/20 24 11/02/2024 VITAM IN D 25-HY DROXY [id number] 43.6 NG/mL 30-100 Vitam in D Statu s: Defic ient: <20 ng/mL Insuf ficie nt: 20-29 ng/mL Suffi cient : 30-10 0 ng/mL Not Available [facility] (Lab) [address] [place], [address], 11/02/2024 15:07:21 11/02/20 24 11/02/2024 T4 FREE free T4 0.93 NG/dL 0.78-2 .19 Not Available [facility] (Lab) [address] [place], [address], 11/02/2024 15:08:00 11/02/20 24 11/02/2024 TSH thyroid-stim ulating hormone 0.971 uIU/m L 0.465- 4.680 Not Available [facility] (Lab) [address] [place], [address], 11/02/2024 15:08:05 Result Notes None recorded. Problems Name Problem SNOMED Code Status Onset Date Resolution Date Notes Provider Name and Address Organization Details Recorded Time Gastroesop hageal reflux disease without esophagiti s 647162626 Active 2022 Nithin garcia MD [address], [address], [place], [address] , [employer] [facility] [employer] 3 08:18:09 Vitamin D deficiency 87417512 Active 2022 Nithin garcia MD [address] [place] [address], [place], [address] , [employer] 3 08:18:25 Essential hypertensi on 87392923 Active 2022 Nithin garcia MD [address], [facility] [address], [place], [address] , [employer] [facility] [employer] 3 08:18:42 Malignant neoplasm of prostate 176154249 Active 2022 Nithin garcia MD [address], [facility] [address], [place], [address] , [employer] [facility] [employer] 3 08:18:49 Primary erectile dysfunctio n 893647802 Active 2022 Nithin garcia MD [address], [address], [place], [address] , [employer] [facility] [employer] 3 08:19:01 Pulmonary embolism 87105963 Active 2022 Nithin garcia MD [address], [address], [place], [address] , [place] [facility] 3 08:19:12 Glaucoma 23075269 Active 2022 Nithin garcia MD [address], [address], [place], [address] , [place] [facility] 3 08:19:18 Malignant neoplasm of lung 953919911 Active 2022 Nithin garcia MD [address], [address], [place], [address] , [place] [facility] 3 08:19:27 Liver enzymes level above reference range 295756860 Active 2022 Nithin garcia MD [address], [address], [place], [address] , [place] [facility] 3 08:32:28 Actinic keratosis 733569596 Active 2023 Jer morfin MD [address], [address], [place], [address] , [place] [facility] 4 14:26:33 Periodic limb movement disorder 814141733 Active 2023 Harley Lucio MD [address], [address], [place], [address] , [place] [facility] 4 11:54:37 Obstructiv e sleep apnea syndrome 61250085 Active 2023 Harley Lucio MD [address], [address], [place], [address] , [place] [facility] 4 12:18:42 Cardiac arrhythmia 867089358 Active 2023 Nithin garcia MD [address], [address], [place], [address] , [place] [facility] 4 16:59:11 Hyperglyce max 92188736 Active 2023 Nithin garcia MD [address], [address], [place], [address] , [employer] [facility] 4 16:59:11 Skin lesion 56031400 Active 2023 Nithin garcia MD [address], [address], [place], [address] , [employer] [facility] 4 16:59:11 Bilateral hearing loss 95151429 Active 2023 Nithin garcia MD [address], [address], [place], [address] , [employer] 4 10:22:49 Cough 80455299 Active 2024 CLARIBEL Martínez, [employer] 5 16:17:31 Hyperlipid emia 90910431 Active 2021 Not Available [facility] 3 04:29:13 Pain of bilateral hands 7836586004021 9109 Active 2024 Nithin garcia MD [address], [address], [place], [address] , [employer] 5 11:00:08 Notes:Medical History: Bilat eral hearing loss/tinnitus Glaucoma Obesity with mild OSAHS, AHI = 11, 02/18/22, on CPAP c/o IVRC Hyperlipidemia Hypertension EF 55% Mild TR/OK/AR Mild RVE RVSP 29 mmHg PE on Xarelto 6 mm right pulm nodule Hiatal hernia with NIXON Diverticulosis Bilateral inguinal hernias Right renal cyst ED Vit D deficiency Cervicothoracolumbar spondylosis Left knee OA Procedure History: Prostate ca on leuprolide s/p prostatectomy 2009 SSS s/p PPP 2009, 2018 AICD placement 2018 PVC ablation 2019 Robotic RUL lung ca wedge resection 2019 Occupational History: Retired Problem Notes None recorded. Procedures Surgical History Date Name Laterality Status Provider Name and Address Organization Details Recorded Time 03/06/20 Medicare Wellness CPT Code, subsequent completed Rickie Dasilva LPN [place] [facility] [employer] 03/06/2024 12:00:59 04/04/20 22 other completed Not Available [facility] 3 04:24:42 04/16/20 21 wedge excision of lung completed Not Available [facility] 01/18/2023 04:24:42 10/20/20 19 cardiac pacemaker procedure completed Not Available [facility] 01/18/2023 04:24:42 06/18/20 18 Colonoscopy completed Not Available [facility] 01/19/20 23 04:24:42 04/20/20 09 Pacemaker completed Not Available [facility] 3 04:24:42 04/20/20 08 Prostatectomy completed Not Available [facility] 2022 04:24:42 Cataract Surgery completed [facility] [place] [facility] [employer] [facility] 11/06/2023 09:15:43 Imaging Results None recorded. Procedure Notes None recorded. Medical Equipment None Reported. Allergies No known drug allergies Medications Name Sig Start Date Stop Date Status Note LastModified by Organization Details LastModified Time losartan 50 mg tablet 04/08 completed Now on lisinopr il Dr Banuelos s o03/22/19 Not Available Not Available Not Available latanopro st 0.005 % eye drops INSTILL 1 DROP IN BOTH EYES AT BEDTIME 02/05 completed Not Available Not Available Not Available atorvasta tin 40 mg tablet TAKE 1 TABLET BY MOUTH EVERY DAY 2024 active Not Available Not Available Not Avai lable atorvasta tin 80 mg tablet 02/13 completed decrease d to 40mg at 01/16/23 OV Not Available Not Available Not Available potassium chloride ER 10 mEq capsule,e xtended release 05/16 completed Not Available Not Available Not Available atorvasta tin 20 mg tablet TAKE 1 TABLET DAILY 06/06 completed Not Available Not Available Not Available Toprol XL 100 mg tablet,ex tended release Take 1 tablet every day by oral route. active Not Available Not Available No t Available azithromy alida 250 mg tablet TAKE 2 TABLETS (500 MG) BY ORAL ROUTE ONCE DAILY FOR 1 DAY THEN 1 TABLET (250 MG) BY ORAL ROUTE ONCE DAILY FOR 4 DAYS 02/05 completed Not Available Not Available Not Available metoprolo l tartrate 100 mg tablet TK 1T PO QD 10/25 /2021 completed Not Available Not Available Not Available hydrochlo rothiazid e 50 mg tablet 05/16 completed Not Available Not Available Not Available Claritin 10 mg tablet Take 1 tablet every day by oral route as needed for 90 days. active Not Available Not Available No t Available brinzolam pawel 1 % eye drops,chad pension SHAKE LIQUID AND INSTILL 1 DROP IN BOTH EYES TWICE DAILY 07/15 completed Not Available Not Available Not Available Viagra 50 mg tablet TAKE 1 TAB DAILY NEEDED. *TAKE 30 MINUTES PRIOR TO SEX. ER IF ERECTION LASTS MORE THAN 4 HOURS* active Not Available Not Available No t Available Mag-Oxide 400 mg tablet Take 1 tablet every day by oral route. 06/18 completed Not Available Not Available Not Available Toprol XL 50 mg tablet,ex tended release Take 1 tablet every day by oral route. 12/01 completed Not Available Not Available Not Available aspirin 81 mg tablet,de layed release Take 1 tablet every day by oral route. 04/06 completed Not Available Not Available Not Available ketorolac 0.5 % eye drops 11/06 completed Not Available Not Available Not Available oxycodone -acetamin ophen 5 mg-325 mg tablet 12/26 completed Not Available Not Available Not Available prednisol one acetate 1 % eye drops,chad pension 11/06 completed Not Available Not Available Not Available ciproflox acin 0.3 % eye drops 11/06 completed Not Available Not Available Not Available amlodipin e 10 mg tablet TAKE 1 TABLET BY MOUTH EVERY DAY active Not Available Not Available No t Available cephalexi n 500 mg capsule 11/25 completed Not Available Not Available Not Available metoprolo l tartrate 50 mg tablet TAKE 1 TABLET BY MOUTH TWICE DAILY active Not Available Not Available No t Available hydrochlo rothiazid e 12.5 mg capsule Take 1 capsule every day by oral route for 90 days. 03/06 completed Not Available Not Available Not Available omeprazol e 20 mg capsule,d elayed release Take 1 capsule every day by oral route. 02/14 completed Not Available Not Available Not Available monteluka st 10 mg tablet TK 1 T PO QD PRN active Not Available Not Available No t Available megestrol 20 mg tablet bid 04/06 completed Not Available Not Available Not Available lisinopri l 40 mg tablet TAKE 1 TABLET BY MOUTH EVERY DAY active Not Available Not Available No t Available fluticaso ne propionat e 50 mcg/actua tion nasal spray,chad rob MANUEL LQ AND U 1 SPR IEN QD active Not Available Not Available No t Available amoxicill in 875 mg-potass ium clavulana te 125 mg tablet TAKE 1 TABLET BY MOUTH TWICE DAILY 09/13 completed Not Available Not Available Not Available dorzolami de 2 % eye drops INSTILL 1 DROP IN EACH EYE TWICE DAILY 12/24 completed Not Available Not Available Not Available iron 65 mg tablet Take by oral route. 07/13 completed Not Available Not Available Not Available oxycodone 5 mg tablet 09/13 completed Not Available Not Available Not Available valsartan 160 mg tablet Take 1 tablet twice a day by oral route. 04/08 completed [facility] started Not Available Not Available Not Available Pneumovax -23 25 mcg/0.5 mL injection syringe 04/08 completed Not Available Not Available Not Available Boostrix Tdap 2.5 Lf unit-8 mcg-5 Lf/0.5 mL intramusc ular syringe 05/30 completed Not Available Not Available Not Available magnesium 400mg bid 07/[address] Vin butterfield 11/29/19 Not Available Not Available Not Available leuprolid e one inection q 6 months active Not Available Not Available No t Available vitamin E active Not Available Not Litzy ilable Not Available niacin 1 Tablet 2 Times Daily 11/25 completed Not Available Not Available Not Available omeprazol e 20mg capsule daily active Not Available Not Available No t Available Fish Oil active Not Available Not Avai lable Not Available Calcium 600 1 Tablet 2 times daily 07/13 completed Not Available Not Available Not Available Garlique active Not Available Not Avai lable Not Available Vitamin D3 qd 06/06 completed Not Available Not Available Not Available Diana Root active Not Available Not Available Not Available multivita min active Not Available Not Available Not Available apple cider vinegar 450mg daily 04/06 completed Not Available Not Available Not Available hydrochlo rothiazid e 12.5 mg tablet Take 1 tablet every day by oral route for 90 days. active Not Available Not Available No t Available Prevnar 13 (PF) 0.5 mL intramusc ular syringe 05/30 completed Not Available Not Available Not Available B12 07/13 completed 1000mg Not Available Not Available Not Available Suprep Bowel Prep Kit 17.5 gram-3.13 gram-1.6 gram oral solution 06/27 completed Not Available Not Available Not Available Pradaxa 11/[address] Banuelos s is to get ablation 10/10/19 Not Available Not Available Not Available Xarelto 20 mg tablet 1 Tablet Daily active Not Available Not Available No t Available magnesium 400 mg (as magnesium oxide) capsule Take by oral route. active Not Available Not Available No t Available Xarelto DVT-PE Treatment 30-Day Starter 15 mg(42)-20 mg(9) tablet pack Take 1 startr pk every day by oral route as directed . 11/25 completed Not Available Not Available Not Available Fluzone High-Dose 9072-7974 (PF) 180 mcg/0.5 mL intramusc ular syringe active Not Available Not Available Not Available Shingrix (PF) 50 mcg/0.5 mL intramusc ular suspensio n, kit 06/27 completed Not Available Not Available Not Available Fluad 65yr up(PF)45 mcg(15 mcgx3)/0. 5 mL intramusc ular syringe 09/26 completed Not Available Not Available Not Available Fluad 65yr up(PF)45 mcg(15 mcgx3)/0. 5 mL intramusc ular syringe active Not Available Not Available Not Available Fluad Quad (65yr up)(PF) 60 mcg (15 mcg x 4)/0.5mL IM syringe PHARMACI ST ADMINIST ERED IMMUNIZA TION ADMINIST ERED AT TIME OF DISPENSI NG active Not Available Not Available No t Available Paxlovid 300 mg (150 mg x 2)-100 mg tablets in a dose pack TK 2 NIRMATRE LVIR TS AND 1 RITONAVI R T TOGETHER PO BID FOR 5 DAYS TWICE DAILY 07/17 completed Not Available Not Available Not Available red beet-sour ly extract active Not Available Not Available Not Available Vitals Date Recorded Body height Body mass index (BMI) Body weight Body temperature Heart rate Oxygen saturation Oxygen saturation in Arterial blood by Pulse oximetry Systolic blood pressure Diastolic blood pressure Provider Name and Address Organization Details Last Updated DateTime 5 172.72 cm 30.9 kg/m2 75763.2 5 g 98.5 [degF] 71 /min 98 % 98 % 122 mm[Hg] 64 mm[Hg] Roxana Tavarez MA [facility] [employer] 5 12:15:18 Date Recorded Body height Body mass index (BMI) Body weight Body temperature Heart rate Systolic blood pressure Diastolic blood pressure Provider Name and Address Organization Details Last Updated DateTime 5 172.72 cm 30.6 kg/m2 26913.0 7 g 97.6 [degF] 72 /min 124 mm[Hg] 72 mm[Hg] EMILI Mcneil [facility] [employer] 5 10:28:28 Date Recorded Heart rate Respiratory rate Provider N tamela and Address Organization Details Last Updated DateTime 06/18/2024 64 /min 14 /min Harley Lucio MD [address] [place] [address], [id number], [place] [facility] [employer] 06/18/2024 08:50:03 Date Recorded Body height Body mass index (BMI) Body weight Body temperature Heart rate Oxygen saturation Oxygen saturation in Arterial blood by Pulse oximetry Systolic blood pressure Diastolic blood pressure Provider Name and Address Organization Details Last Updated DateTime 4 172.72 cm 30 kg/m2 41942.7 g 98.1 [degF] 64 /min 97 % 97 % 126 mm[Hg] 74 mm[Hg] Turner Cannon CMA [place] [facility] [employer] 4 08:33:06 Date Recorded Body height Body mass index (BMI) Body weight Heart rate Systolic blood pressure Diastolic blood pressure Provider Name and Address Organization Details Last Updated DateTime 4 172.72 cm 29.3 kg/m2 76116.3 3 g 72 /min 120 mm[Hg] 70 mm[Hg] EMILI Mcneil [place] [facility] [place] [employer] [facility] 4 09:47:28 Date Recorded Body height Body mass index (BMI) Body weight Body temperature Heart rate Systolic blood pressure Diastolic blood pressure Provider Name and Address Organization Details Last Updated DateTime 4 172.72 cm 30.6 kg/m2 35880.0 7 g 97.1 [degF] 72 /min 110 mm[Hg] 72 mm[Hg] EMILI Mcneil [place] [employer] [facility] 4 09:33:20 Social History Question Answer Notes LastModified by Organization Details LastModified Time Tobacco Smoking Status Never Smoker Not Available [employer] 01/18/2023 04:11:14 Do You Have An Advance Directive? No Information Provided Previously MIGRATION.[id number] [id number] Information not available 01/18/2023 Are You Blind Or Do You Have Difficulty Seeing? No MIGRATION.0301 [id number] Information not available 01/18/2023 What Is Your Level Of Caffeine Consumption? Occasional MIGRATION.0301 [id number] Information not available 01/18/2023 How Much Tobacco Do You Chew? None MIGRATION.0301 [id number] Information not available 01/18/2023 In The 14 Days Before Symptom Onset, Have You Had Close Contact With A Laboratory-conf irmed COVID-19 While That Case Was Ill? No MIGRATION.0301 [id number] Information not available 01/18/2023 In The 14 Days Before Symptom Onset, Have You Had Close Contact With A Person Who Is Under Investigation For COVID-19 While That Person Was Ill? No MIGRATION.0301 [id number] Information not available 01/18/2023 Are You Deaf Or Do You Have Serious Difficulty Hearing? No Has Tinnitus MIGRATION.0301 [id number] Information not available 01/18/2023 What Type Of Diet Are You Following? REGULAR MIGRATION.0301 019008 Information not available 01/18/2023 Which Illicit Or Recreational Drugs Have You Used? None MIGRATION.0301 414335 Information not available 01/18/2023 What Is The Highest Grade Or Level Of School You Have Completed Or The Highest Degree You Have Received? [id number] Information not available 07/17/2023 Have There Been Any Changes To Your Family Or Social Situation? No MIGRATION.0301 [id number] Information not available 01/18/2023 What Is The Fluoride Status Of Your Home? Unknown MIGRATION.0301 [id number] Information not available 01/18/2023 Are There Any Guns Present In Your Home? Yes MIGRATION.0301 289351 Information not available 01/18/2023 Do You Use Insect Repellent Routinely? No MIGRATION.0301 731142 Information not available 01/18/2023 Where Do You Live? [facility] MIGRATION.0301 557210 Information not available 01/18/2023 Guns Present In The Home? Yes [email or web address] Information not available 03/06/2024 Are You Able To Care For Yourself? Yes [email or web address] Information not available 03/06/2024 Are You Blind Or Do Yo Have Difficulty Seeing? No [email or web address] Information not available 03/06/2024 Are You Deaf Or Do You Have Serious Difficulty Hearing? No Information not available 03/06/2024 General Stress Level? Low [email or web address] Information not available 03/06/2024 Live Alone Of With Others? With Others [email or web address] Information not available 03/06/2024 Do You Have A Medical Power Of Aircraft Pneudraulic Systems Mechanic? No MIGRATION.0301 [id number] Information not available 01/18/2023 What Was The Date Of Your Most Recent Tobacco Screening? 02/05/2025 Information not available 02/05/2025 Do You Have Any Pets? No MIGRATION.0301 225781 Information not available 01/18/2023 What Is Your Relationship Status? MIGRATION.0301 [id number] Information not available 01/18/2023 Do You Use Your Seat Belt Or Car Seat Routinely? Yes MIGRATION.0301 599255 Information not available 01/18/2023 Do You Have Smoke And Carbon Monoxide Detectors In Your Home? Yes MIGRATION.0301 583890 Information not available 01/18/2023 Are You Passively Exposed To Smoke? No MIGRATION.0301 472254 Information not available 01/18/2023 Are There Any Smokers In Your House? No MIGRATION.0301 143019 Information not available 01/18/2023 How Much Tobacco Do You Smoke? No MIGRATION.0301 592755 Information not available 01/18/2023 Do You Use Sunscreen Routinely? Yes MIGRATION.0301 578669 Information not available 01/18/2023 Has Tobacco Cessation Counseling Been Provided? No N/a Information not available 07/17/2023 How Many Years Have You Smoked Tobacco? 0 MIGRATION.0301 266229 Information not available 01/18/2023 Have You Recently Traveled Abroad? No MIGRATION.0301 889212 Information not available 01/18/2023 Do You Have Difficulty Walking Or Climbing Stairs? No MIGRATION.0301 777046 Information not available 01/18/2023 Do You Have Any Dietary Restrictions? No MIGRATION.0301 718329 Information not available 01/18/2023 Sex: Male Functional Status Question Answer Note LastModified by Organizat ion Details LastModified Time Do you use any illicit or recreational drugs? No Information not available 03/06/2024 Do you or have you ever used any other forms of tobacco or nicotine? No Information not available 07/17/2023 What is your level of alcohol consumption? None MIGRATION.[id number] 026 Information not available 01/18/2023 Are you currently employed? No Information not available 07/17/2023 Do you have transportation difficulties? No MIGRATION.[id number] 026 Information not available 01/18/2023 Are you able to walk? YESWOREST MIGRATION.7753425 026 Information not available 01/18/2023 Do you have difficulty doing errands alone? No MIGRATION.[id number] 026 Information not available 01/18/2023 Are you able to care for yourself? Yes MIGRATION.[id number] 026 Information not available 01/18/2023 What is your occupation? retired MIGRATION.[id number] 026 Information not available 01/18/2023 Do you have difficulty dressing or bathing? No MIGRATION.[id number] 026 Information not available 01/18/2023 What is your exercise level? Occasional MIGRATION.[id number] 026 Information not available 01/18/2023 Mental Status Question Answer Note LastModified by Organizat ion Details LastModified Time Do you feel stressed (tense, restless, nervous, or anxious, or unable to sleep at night)? [id number] MIGRATION.[id number] 26 Information not available 01/18/2023 Do you have difficulty concentrating, remembering or making decisions? No MIGRATION.[id number] 26 Information not available 01/18/2023 Family History Relationship Description Onset Age of this Age Resolved Age Notes LastModified by Organization Details LastModified Time Father Hypertensive disorder MIGRATION.464 [id number] Not available 01/18/2023 04:24:43 Father Cerebrovascu lar accident [email or web address] Not available 12/2023 10:49:52 Mother Hypertensive disorder MIGRATION.593 [id number] Not available 01/18/2023 04:24:43 Mother Cerebrovascu lar accident [email or web address] Not available 12/2023 10:49:52 Sister Hypertensive disorder MIGRATION.535 [id number] Not available 01/18/2023 04:24:44 Sister Myocardial infarction MIGRATION.376 [id number] Not available 01/18/2023 04:24:44 Sister Malignant neoplastic disease [email or web address] Not available 2023 10:49:52 Brother Kidney disease [email or web address] Not available 2023 12:24:54 Medical History Condition Response BLINDNESS N NERVE DISEASE N RHEUMATIC FEVER N BLADDER PROBLEMS N KIDNEY STONES N MRSA N OTHER # 1 N POLIO N LUNG DISEASE/DISORDER N RADIATION / CHEMOTHERAPY Y COPD N Other # 2 N BLOOD DISEASES N EAR OR HEARING PROBLEMS N MUMPS N DEPRESSION (INCLUDING POST ) N BOWEL PROBLEMS N STROKE/TIA N ULCERS N BENIGN PROSTATIC HYPERPLASIA N MEASLES N MYOCARDIAL INFARCTION N OBESITY N GERD/NAUSEA Y ANEURYSM N URINARY/BLADDER/KIDNEY PROBLEMS N CORONARY ARTERY DISEASE (CAD) N Do you have Advance directive? N ADDICTION CONCERNS N ENDOMETRIOSIS N Impotence N USE OF BLOOD THINNERS N SKIN PROBLEMS N GASTROINTESTINAL DISORDER N PERIPHERAL VASCULAR DISEASE N MUSCLE,JOINT OR BONE PROBLEMS N GASTROINTESTINAL BLEEDING N Do you have a living will? N BLOOD CLOTS N ASTHMA N CATARACTS N ERECTILE DYSFUNCTION Y VARICOSITIES N GI PROBLEMS N Low Testosterone N INFERTILITY N AIDS/HIV N CHEMOTHERAPY / RADIATION N LIVER DISEASE N MALE HYPOGONADISM N HYPERTENSION Y Deficiency N TOURETTE'S N ANXIETY DISORDER N BLOOD TRANSFUSION N ANEMIA/BLOOD DISORDER N CHRONIC EAR INFECTIONS N BRONCHITIS N TUBERCULOSIS N GLAUCOMA N FOOT PROBLEM N DIVERTICULITIS N CHICKENPOX N SLEEP APNEA N INFECTIOUS DISEASE N HEART ARRHYTHMIA N PROSTATE Y INSOMNIA N HIGH CHOLESTEROL / HYPERLIPIDEMIA Y EYE PROBLEMS N EDEMA Y CHRONIC PAIN SYNDROME N CAROTID BLOCKAGE N CONSTIPATION N BACK / NECK PROBLEMS N ATHEROSCLEROSIS N BREAST PROBLEMS N DIALYSIS N ECZEMA N OSTEOPOROSIS N ARTHRITIS N Do you have a healthcare POA? N APPENDICITIS N DIABETES, TYPE N BAD TEETH N ENT N HEARTBURN / REFLUX N AFIB N AUTISM SPECTRUM DISORDER (ASD) N HEPATITIS / LIVER DISEASE N GOUT N SLEEP DISORDER N ALZHEIMER'S DISEASE N Brain Problems N HERPES N DEMENTIA N HEADACHES/MIGRAINES N SEIZURES/EPILEPSY N VASCULAR DISEASE N PACEMAKER Y Blood Disorder N DIZZINESS N HEART DISEASE/HEART PROBLEMS N KIDNEY DISEASE N MULTIPLE SCLEROSIS N CARDIAC ARRHYTHMIA N CANCER: SPECIFY Y ATRIAL FIBRILLATION N Gall Stones N PULMONARY EMBOLISM Y AUTOIMMUNE DISEASE N Immunizations Vaccine Type Date Status Note Provider Nam e and Address Organization Details Recorded Time Influenza, adjuvanted, trivalent, PF 8 completed Mellissa Trevino RMA null, [place] [facility] 11/06/2024 09:21:27 Influenza, adjuvanted, trivalent, PF 9 completed Mellissa Trevino RMA null, [place] - [facility] 11/06/2024 09:21:27 zoster recombinant 8 completed Mellissa Trevino RMA null, [place] [facility] 11/06/2024 09:21:27 Influenza, adjuvanted, quadrivalent, PF 1 completed Mellissa Trevino RMA null[place] [facility] 11/06/2024 09:21:27 COVID-19, mRNA, LNP-S, PF, 100 mcg/0.5mL dose or 50 mcg/0.25mL dose 1 completed Mellissa Trevino RMA null, [place] [facility] 11/06/2024 09:21:27 COVID-19, mRNA, LNP-S, PF, 100 mcg/0.5mL dose or 50 mcg/0.25mL dose 1 completed Mellissa Trevino RMA null, [place] [facility] 11/06/2024 09:21:27 COVID-19, mRNA, LNP-S, PF, 100 mcg/0.5mL dose or 50 mcg/0.25mL dose 2 completed Mellissa Trevino RMA null, [place] [facility] 11/06/2024 09:21:27 Pneumococcal conjugate PCV 13 5 completed Mellissa Trevino RMA null, [place] [facility] 11/06/2024 09:21:27 Pneumococcal conjugate PCV 13 7 [facility] 09:21:27 Influenza, high-dose, trivalent, PF 6 completed [facility]/06/2024 09:21:27 Influenza, high-dose, trivalent, PF 7 completed [facility] 11/06/2024 09:21:27 Influenza, split virus, quadrivalent, PF 0 completed [facility]/06/2024 09:21:27 zoster recombinant 4 completed [facility] 11/06/2024 09:21:43 RSV, recombinant, protein subunit RSVpreF, adjuvant reconstituted, 0.5 mL, PF 3 completed [facility] 11/06/2024 09:21:44 COVID-19, mRNA, LNP-S, PF, 50 mcg/0.5 mL 3 completed [facility] 11/06/2024 09:21:44 influenza, unspecified formulation 9 completed [facility] 11/06/2024 09:21:44 COVID-19, mRNA, LNP-S, bivalent, PF, 50 mcg/0.5 mL or 25mcg/0.25 mL dose 2 completed [facility] 11/06/2024 09:21:27 COVID-19, mRNA, LNP-S, PF, 100 mcg/0.5mL dose or 50 mcg/0.25mL dose 1 completed [facility] 11/06/2024 09:21:27 Influenza, split virus, quadrivalent, preservative 1 completed Mellissa Trevino RMA null, [facility] 11/06/2024 09:21:27 SARS-COV-2 (COVID-19) vaccine, UNSPECIFIED 1 completed Not Available [facility] 01/18/2023 04:35:38 SARS-COV-2 (COVID-19) vaccine, UNSPECIFIED 1 completed Mellissa Trevino RMA null, [facility] 11/06/2024 09:21:27 Influenza, high-dose, quadrivalent, PF 9 completed Mellissa Trevino RMA null, [facility] 11/06/2024 09:21:43 Influenza, high-dose, trivalent, PF 0 completed Mellissa Trevino RMA null, [facility] 11/06/2024 09:21:27 pneumococcal polysaccharide PPV23 9 completed Mellissa Trevino RMA null, [facility] 11/06/2024 09:21:27 influenza, unspecified formulation 8 completed Mellissa Trevino RMA null, [facility] 11/06/2024 09:21:27 Pneumococcal conjugate PCV 13 8 completed Mellissa Trevino RMA null, [facility] 11/06/2024 09:21:27 Tdap 8 completed Mellissa Trevino RMA null, [facility] 11/06/2024 09:21:27 influenza, unspecified formulation 7 completed Mellissa Trevino RMA null, [facility] 11/06/2024 09:21:27 Pneumococcal conjugate PCV 13 7 completed Mellissa Trevino RMA null, [facility] 11/06/2024 09:21:27 Influenza, high-dose, quadrivalent, PF 2 completed Mellissa Trevino RMA null, [facility] 11/06/2024 09:21:27 Influenza, high-dose, quadrivalent, PF 3 completed Mellissa Trevino, EMILI hammond, [place] - [facility] [employer] [facility] 08/23/2023 10:00:05 Past Encounters Encounter ID Performer Location Encounter Start Date Encounter Closed Date Diagnosis/Indication Diagnosis SNOMED-CT Code Diagnosis ICD10 Code Diagnosis Note [id number] MD IKER P[facility] Farhat lllouis [address] [place] [address] [place] [address] 03/15/2021 00:00:00 03/15/2021 09:53:57 [id number] [facility] Farhat lllouis [address] [place] [address] [place] [address] 09/13/2021 00:00:00 09/13/2021 16:51:17 [id number] Nithin garcai MD [facility] Internal Med [facility] [address] [place] [address], [address] [address] 02/14/2022 00:00:00 05/16/2022 10:49:12 [id number] Jer morfin MD [facility] General Surgery [address] [place] [address], [address] [address] 03/22/2022 00:00:00 03/22/2022 13:44:19 [id number] Jer morfin MD [facility] General Surgery [address] [place] [address] 04/12/2022 00:00:00 04/12/2022 12:30:14 [id number] MD IKER [facility]ond[facility] Farhat lllouis [address] [place] [address] [place] [address] 08/17/2022 00:00:00 08/17/2022 12:58:55 [id number] MD IKER [facility] Farhat claros [address] [place] [address] [place] [address] 01/16/2023 00:00:00 01/16/2023 14:31:23 [id number] Nithin garcia MD [facility] Farhat claros [address] [place] [address] [place] [address] 07/17/2023 08:54:41 07/17/2023 09:31:40 Screening - NAD [id number] Z13.9 C-scope: 06/18/18 Dr Ortiz n, no more c-scope UTD flu shotUTD tdap 05/16/18UT D on shingles shot 06/27/18PC V 05/16/18 #13, UTD #23UTD on COVID 19 vaccine RTC in 4 monthGet labsER if worseHe and his is agreeable to this plan of care Hyperlipidemia [id number] E78.5 On atorvastat in 40mg daily, decreased to 40mg daily 08/17/2022 Get labs Gastroesop hageal reflux disease without esophagitis [id number] K21.9 On omeprazole Get EGD doneTake as needed Cardiac arrhythmia 32017 7007 I49.9 S/p pacemaker 11/01-10/20 04/07, admitted and 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, he did have a PM implanted by Dr Briseno on 10/11/19 US duplex 02/24/2023 : Dr Briseno Sees [facility] Clarissa Briseno Liver enzy mes level above reference range [id number] R74.01 11/09/2020 : Dr Colbert/Miguel Perez VENEER SANDER: [facility]: get labs and f/u in 3 months 02/17/2021 : Dr Colbert/Miguel Perez: [facility]: F/u PRN, LFTs [facility] Vitamin D deficiency 347 48206 E55.9 Hyperglycemia [id number] R 73.9 Check A1CGet to diet and exercise Skin lesion 68875357 L98 .9 Lipoma like lesion noted in the mid chest below the sternum, non tenderSeen by Dr Seay Essential hypertension 93027712 I10 On amlodipine 10mg dailyOn HCTZ 12.5mg dailyOn lisinopril 40mg dailyOn metoprolol 50mg bid Does well nowGet labs Malignant neoplasm of prostate [id number] C61 [address] 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 Addendum: 04/02/2020 :Did get labs from Dr Draper 04/01/2020 : LDL elevated message sent to get on crestor CT chest: PET CT for 1.6cm mass R apical region, CT abd/pelvis : Less sclerotic lesions at T6, T11 and kiran 6th ribs NM bone scan: Neg OV 04/06/2020 :Is to see Dr Pina urology, is to get another whole body scan ion 05/17/[address] Draper this Monday Addendum: 04/07/2020 : 0: Dr Pina: Dr Pina is to review the outside CT and may need a biopsy OV 0:04/08/20 20: Dr Draper: Is to get another CT chest and to decide on the lung biopsy, but Dr Pina has advised him to wait for another month and then repeat the CT as he states that the spot on the lungs has not changed Addendum 09/23/2020 : 0: Dr Pina, is to get another PSA and XR chest OV 11/02/2020 :PSA WNLSees Dr Pina, Dr Draper OV 03/15/2021 :Keep apts with Dr Draper and Dr Faust is doing wellCT chest 03/08/2021 : Increase in size of spiculated cavitary lesion RUL nodule, remaining conspicuou s for primary lung malignancy 09/13/2021 :S/p wedge resection and f/u with CT surgery 05/04/2021 Dr Landrum Wash UDid see Dr Draper 04/08/2021 OV 02/14/2022 :Dr Draper 01/05/2022 : PSA in 6 months and f/u in 6 monthsDr Pina 02/07/2022 : Next in 6 monthsCT A/P: 01/31/2022 : NegBone scan 02/11/2022 : Neg OV 08/17/2022 :Dr Pina 08/08/2022 , needs to see Dr Draper OV 01/16/2023 :Keep apt with Dr Draper OV 07/17/2023 :CT chest 03/30/2023 : Dr Draper Primary er ectile dysfunction 898702219 N52.9 On viagra He is on lupron given by Dr Pina urologyDoe s well Pulmonary embolism 00809 003 I26.99 On xareltoDoe s well Glaucoma 85029970 H40.9 On latanopros t Lanie RozellDr Wigton 06/29/2023 Malignant neoplasm of lung 638938476 C34.[address] Draper and Dr Pina He is doing well CT chest 03/08/2021 : Increase in size of spiculated cavitary lesion RUL nodule, remaining conspicuou s for primary lung malignancy OV 02/14/2022 :S/p RUL wedge resection 03/[address] surgeon, last OV 11/04/2021 , next in 6 months OV 08/17/2022 :Sees Dr Landrum CT surgeon CT Chest/A/P 03/30/2023 : Dr Bea Marroquin Than: Neg [id number] Nithin garcia MD [facility] [place] [address] [facility] [place] [address] 11/06/2023 09:11:18 11/06/2023 09:38:33 Screening - NAD [id number] Z13.9 C-scope: 06/18/18 Dr Ortiz n, no more c-scope UTD flu shotUTD tdap 05/16/18UT D on shingles shot 06/27/18PC V 05/16/18 #13, UTD #23UTD on COVID 19 vaccineGet RSV vaccine RTC in 4 monthGet labsER if worseHe and his is agreeable to this plan of care Hyperlipidemia 53683407 E78.5 On atorvastat in 80mg daily, decreased to 40mg daily 08/17/2022 , does not want to increase the dose 11/06/2023 , more diet and exercise is neededGet labs Gastroesop hageal reflux disease without esophagitis 350029342 K21.9 On omeprazole EGD 09/15/2023 Take as needed Cardiac arrhythmia 22790 7007 I49.9 S/p pacemaker 11/01-10/20 04/07, admitted and 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, he did have a PM implanted by Dr Briseno on 10/11/19 US duplex 02/24/2023 : [facility] Liver enzy mes level above reference range 979206975 R74.01 11/09/2020 : Dr Colbert/Miguel Perez [employer]: get labs and f/u in 3 months 02/17/2021 : Dr Colbert/Miguel Perez: [facility]: F/u PRN, LFTs WNL on 11/06/2020 Does wellLFTs WNL Vitamin D deficiency 347 02942 E55.9 Hyperglycemia 40853949 R 73.9 Check A1CGet to diet and exercise Skin lesion 42464214 L98 .9 Lipoma like lesion noted in the mid chest below the sternum, non tenderSeen by Dr Seay Essential hypertension 96671784 I10 On amlodipine 10mg dailyOn HCTZ 12.5mg dailyOn lisinopril 40mg dailyOn metoprolol 50mg bid Does well nowGet labs Malignant neoplasm of prostate 672808666 C[address] 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 Addendum: 04/02/2020 :Did get labs from Dr Draper 04/01/2020 : LDL elevated message sent to get on crestor CT chest: PET CT for 1.6cm mass R apical region, CT abd/pelvis : Less sclerotic lesions at T6, T11 and kiran 6th ribs NM bone scan: Neg OV 04/06/2020 :Is to see Dr Pina urology, is to get another whole body scan ion 05/17/[address] Draper this Monday Addendum: 04/07/2020 : 0: Dr Pina: Dr Pina is to review the outside CT and may need a biopsy OV 0:04/08/20 20: Dr Draper: Is to get another CT chest and to decide on the lung biopsy, but Dr Pina has advised him to wait for another month and then repeat the CT as he states that the spot on the lungs has not changed Addendum 09/23/2020 : 0: Dr Pina, is to get another PSA and XR chest OV 11/02/2020 :PSA WNLSees Dr Pina, Dr Draper OV 03/15/2021 :Keep apts with Dr Draper and Dr PinaHe is doing wellCT chest 03/08/2021 : Increase in size of spiculated cavitary lesion RUL nodule, remaining conspicuou s for primary lung malignancy 09/13/2021 :S/p wedge resection and f/u with CT surgery 05/04/2021 Dr Landrum Wash UDid see Dr Draper 04/08/2021 OV 02/14/2022 :Dr Draper 01/05/2022 : PSA in 6 months and f/u in 6 monthsDr Pina 02/07/2022 : Next in 6 monthsCT A/P: 01/31/2022 : NegBone scan 02/11/2022 : Neg OV 08/17/2022 :Dr Pina 08/08/2022 , needs to see Dr Draper OV 01/16/2023 :Keep apt with Dr Draper OV 07/17/2023 :CT chest 03/30/2023 : Dr Draper OV 11/06/2023 :CT chest 09/22/2023: Dr Draper Primary er ectile dysfunction 989555453 N52.9 On viagra He is on lupron given by Dr Pina urologyDoe s well Pulmonary embolism 66563 003 I26.99 On xareltoDoe s well Glaucoma 21574217 H40.9 On latanopros t Lanie RozellDr Wigton 06/29/2023 Malignant neoplasm of lung 327019390 C34.[address] Draper and Dr Pina He is doing well CT chest 03/08/2021 : Increase in size of spiculated cavitary lesion RUL nodule, remaining conspicuou s for primary lung malignancy OV 02/14/2022 :S/p RUL wedge resection 03/2021 [address] T[address] surgeon, last OV 11/04/2021 , next in 6 months OV 08/17/2022 :Sees Dr Landrum CT surgeon CT Chest/A/P 03/30/2023 : Dr Figueredo Than Than: NegCT chest 10/02/2023 : Dr Draper [id number] Nithin garcia MD [facility] Internal Med [place] [address] [facility] [place] [address] 03/06/2024 09:59:14 03/06/2024 10:52:59 Screening - NAD [id number] Z13.9 C-scope: 06/18/18 Dr Ortiz n, no more c-scope UTD flu shotUTD tdap 05/16/18UT D on shingles shot 06/27/18PC V 05/16/18 #13, UTD #23UTD on COVID 19 vaccineGet RSV vaccine RTC in 4 monthGet labsER if worseHe and his is agreeable to this plan of care Hyperlipidemia 05000406 E78.5 On atorvastat in 40mg dailyGet labs Gastroesop hageal reflux disease without esophagitis 630236134 K21.9 On omeprazole EGD 09/15/2023 Take as needed Cardiac arrhythmia 06715 7007 I49.9 S/p pacemaker 11/01-10/20 04/07, admitted and 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, he did have a PM implanted by Dr Briseno on 10/11/19 US duplex 02/24/2023 : Dr Briseno Sees [facility] Clarissa Briseno Liver enzy mes level above reference range 121261635 R74.01 11/09/2020 : Dr Colbert/Miguel Ley Ana [employer]: [facility]: get labs and f/u in 3 months 02/17/2021 : Dr Colbert/Miguel Ley Ana: [facility]: F/u PRN, LFTs WNL on 11/06/2020 Does wellLFTs WNL Vitamin D deficiency 347 29567 E55.9 Hyperglycemia 13106651 R 73.9 Check A1CGet to diet and exercise Skin lesion 83726032 L98 .9 Lipoma like lesion noted in the mid chest below the sternum, non tenderSeen by Dr Seay OV 03/06/2024 :Small raised dark mole noted on the R lateral mid thighGet a referral to Dr Seay Essential hypertension 35147239 I10 On amlodipine 10mg dailyOn HCTZ 12.5mg dailyOn lisinopril 40mg dailyOn metoprolol 50mg bid Does well nowGet labs Malignant neoplasm of prostate 684287793 C[address] 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 Addendum: 04/02/2020 :Did get labs from Dr Draper 04/01/2020 : LDL elevated message sent to get on crestor CT chest: PET CT for 1.6cm mass R apical region, CT abd/pelvis : Less sclerotic lesions at T6, T11 and kiran 6th ribs NM bone scan: Neg OV 04/06/2020 :Is to see Dr Pina urology, is to get another whole body scan ion 05/17/[address] Draper this Monday Addendum: 04/07/2020 : 0: Dr Pina: Dr Pina is to review the outside CT and may need a biopsy OV 0:04/08/20 20: Dr Draper: Is to get another CT chest and to decide on the lung biopsy, but Dr Pina has advised him to wait for another month and then repeat the CT as he states that the spot on the lungs has not changed Addendum 09/23/2020 : 0: Dr Pina, is to get another PSA and XR chest OV 11/02/2020 :PSA WNLSees Dr Pina, Dr Draper OV 03/15/2021 :Keep apts with Dr Draper and Dr Faust is doing wellCT chest 03/08/2021 : Increase in size of spiculated cavitary lesion RUL nodule, remaining conspicuou s for primary lung malignancy 09/13/2021 :S/p wedge resection and f/u with CT surgery 05/04/2021 Dr Landrum Wash UDid see Dr Draper 04/08/2021 OV 02/14/2022 :Dr Draper 01/05/2022 : PSA in 6 months and f/u in 6 monthsDr Pina 02/07/2022 : Next in 6 monthsCT A/P: 01/31/2022 : NegBone scan 02/11/2022 : Neg OV 08/17/2022 :Dr Pina 08/08/2022 , needs to see Dr Draper OV 01/16/2023 :Keep apt with Dr Draper OV 07/17/2023 :CT chest 03/30/2023 : Dr Draper OV 11/06/2023 :CT chest 09/22/2023: Dr Draper OV 03/06/2024 : Keep apt with Dr Draper Primary er ectile dysfunction 641629856 N52.9 On viagra He is on lupron given by Dr Pina urologyDoe s well Pulmonary embolism 77828 003 I26.99 On xareltoDoe s well Glaucoma 08096174 H40.9 On latanopros t Lanie RozellDr Wigton 06/29/2023 Malignant neoplasm of lung 988883045 C34.[address] Draper and Dr Pina He is doing well CT chest 03/08/2021 : Increase in size of spiculated cavitary lesion RUL nodule, remaining conspicuou s for primary lung malignancy OV 02/14/2022 :S/p RUL wedge resection 03/2021 for T[address] surgeon, last OV 11/04/2021 , next in 6 months OV 08/17/2022 :Sees Dr Landrum CT surgeon CT Chest/A/P 03/30/2023 : Dr Figueredo Than Than: NegCT chest 10/02/2023 : Dr Draper Adult heal th examination 704527782 Z00.00 Screening for disorder 028275449 Z13.9 [id number] Jer morfin MD [facility] [address] [place] [address] 03/21/2024 10:49:45 03/21/2024 11:38:20 Actinic keratosis 422124293 L57.0 Mid back and Right Thigh [id number] Harley Lucio MD [facility] [address] [address] 05/27/2024 11:21:26 05/28/2024 09:18:16 Periodic limb movement disorder 260342003 G47.61 D50.8 E83.42 Obstructiv e sleep apnea syndrome 96401801 G47.33 [id number] Harley Lucio MD [facility] [address] [place] [address] 06/18/2024 08:23:29 06/18/2024 16:28:44 Obstructive sleep apnea syndrome 41855268 G47.33 Periodic l imb movement disorder 810747132 G47.61 [id number] Nithin garcia MD [facility] Internal Med [facility] [address] [place] [address] , [place] [address] 07/15/2024 09:34:58 07/15/2024 10:33:22 Screening - NAD 426632253 Z13.9 C-scope: 06/18/18 Dr Ortiz n, no more c-scope UTD flu shotUTD tdap 05/16/18UT D on shingles shot 06/27/18PC V 05/16/18 #13, UTD #23UTD on COVID 19 vaccineGet RSV vaccine RTC in 4 monthGet labsER if worseHe and his is agreeable to this plan of care Hyperlipidemia 29999232 E78.5 On atorvastat in 40mg dailyGet labs Gastroesop hageal reflux disease without esophagitis 808691592 K21.9 On omeprazole EGD 09/15/2023 Take as needed Cardiac arrhythmia 92031 7007 I49.9 S/p pacemaker 11/01-10/20 04/07, admitted and 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, he did have a PM implanted by Dr Briseno on 10/11/19 US duplex 02/24/2023 : Dr Briseno Sees [facility]Does wellDr Kalvaitis Liver enzy mes level above reference range 186970200 R74.01 11/09/2020 : Dr Colbert/Miguel Perez [employer]: [facility]: get labs and f/u in 3 months 02/17/2021 : Dr Colbert/Miguel Perez: [facility]: F/u PRN, LFTs WNL on 11/06/2020 Does well Vitamin D deficiency 347 87373 E55.9 Hyperglycemia 73973394 R 73.9 Check A1CGet to diet and exercise Skin lesion 38102528 L98 .9 Lipoma like lesion noted in the mid chest below the sternum, non tenderSeen by Dr Seay OV 03/06/2024 :Small raised dark mole noted on the R lateral mid thighGet a referral to Dr Geena Seay 03/21/2024 Essential hypertension 92954897 I10 On amlodipine 10mg dailyOn HCTZ 12.5mg dailyOn lisinopril 40mg dailyOn metoprolol 50mg bid Does well nowGet labs Malignant neoplasm of prostate 911527425 C[address] 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 Addendum: 04/02/2020 :Did get labs from Dr Draper 04/01/2020 : LDL elevated message sent to get on crestor CT chest: PET CT for 1.6cm mass R apical region, CT abd/pelvis : Less sclerotic lesions at T6, T11 and kiran 6th ribs NM bone scan: Neg OV 04/06/2020 :Is to see Dr Pina urology, is to get another whole body scan ion 05/17/[address] Draper this Monday Addendum: 04/07/2020 : 0: Dr Pina: Dr Pina is to review the outside CT and may need a biopsy OV 0:04/08/20 20: Dr Draper: Is to get another CT chest and to decide on the lung biopsy, but Dr Pina has advised him to wait for another month and then repeat the CT as he states that the spot on the lungs has not changed Addendum 09/23/2020 : 0: Dr Pina, is to get another PSA and XR chest OV 11/02/2020 :PSA WNLSees Dr Pina, Dr Draper OV 03/15/2021 :Keep apts with Dr Draper and Dr PinaHe is doing wellCT chest 03/08/2021 : Increase in size of spiculated cavitary lesion RUL nodule, remaining conspicuou s for primary lung malignancy 09/13/2021 :S/p wedge resection and f/u with CT surgery 05/04/2021 Dr Landrum Wash UDid see Dr Draper 04/08/2021 OV 02/14/2022 :Dr Draper 01/05/2022 : PSA in 6 months and f/u in 6 monthsDr Pina 02/07/2022 : Next in 6 monthsCT A/P: 01/31/2022 : NegBone scan 02/11/2022 : Neg OV 08/17/2022 :Dr Pina 08/08/2022 , needs to see Dr Draper OV 01/16/2023 :Keep apt with Dr Draper OV 07/17/2023 :CT chest 03/30/2023 : Dr Draper OV 11/06/2023 :CT chest 09/22/2023: Dr Draper OV 03/06/2024 : Keep apt with Dr Byers 07/15/2024 : Sees Dr Draper Primary er ectile dysfunction 514652420 N52.9 On viagra He is on lupron given by Dr Pina urologyDoe s well Pulmonary embolism 99668 003 I26.99 On xareltoDoe s well Glaucoma 95879176 H40.9 On latanopros t Lanie RozellDr Wigton 06/29/2023 Malignant neoplasm of lung 880827985 C34.[address] Draper and Dr Pina He is doing well CT chest 03/08/2021 : Increase in size of spiculated cavitary lesion RUL nodule, remaining conspicuou s for primary lung malignancy OV 02/14/2022 :S/p RUL wedge resection 03/2021 for T[address] surgeon, last OV 11/04/2021 , next in 6 months OV 08/17/2022 :Sees Dr Landrum CT surgeon CT Chest/A/P 03/30/2023 : Dr Bea Marroquin Than: NegCT chest 10/02/2023 : Dr BarnesT Chest 04/01/2024 : Neg: Dr Cotton OV 07/15/2024 :He does want to get HH thru [facility], the RN for this was in the room today prior to my appointmen t, he is now getting nursing services thru the [facility] as it has been 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[employer], 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 that needs to be sent for the medical necessity, this was reviewed today Bilateral hearing loss 53640515 H91.93 [id number] Nithin garcia MD [facility] Primary Care [address] [place] [address] 11/06/2024 09:20:15 11/06/2024 09:55:39 Screening - NAD 941785245 Z13.9 C-scope: 06/18/18 Dr Ortiz n, no more c-scope UTD flu shotUTD tdap 05/16/18UT D on shingles shot 06/27/18PC V 05/16/18 #13, UTD #23UTD on COVID 19 vaccineGet RSV vaccine RTC in 4 monthGet labsER if worseHe and his is agreeable to this plan of care Hyperlipidemia 77035570 E78.5 On atorvastat in 40mg dailyGet labs Gastroesop hageal reflux disease without esophagitis 535632494 K21.9 On omeprazole EGD 09/15/2023 Take as needed Cardiac arrhythmia 86493 7007 I49.9 S/p pacemaker 11/01-10/20 04/07, admitted and 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, he did have a PM implanted by Dr Briseno on 10/11/19 US duplex 02/24/2023 : Dr Briseno Sees Mei Briseno Liver enzy mes level above reference range 372591112 R74.01 11/09/2020 : Dr Colbert/Miguel Perez [employer]: [facility]: get labs and f/u in 3 months 02/17/2021 : Dr Colbert/Miguel Layr Ana: [facility]: F/u PRN, LFTs WNL on 11/06/2020 Does well Vitamin D deficiency 347 32568 E55.9 Hyperglycemia 21461104 R 73.9 Check A1CGet to diet and exercise Skin lesion 66198389 L98 .9 Lipoma like lesion noted in the mid chest below the sternum, non tenderSeen by Dr Seay OV 03/06/2024 :Small raised dark mole noted on the R lateral mid thighGet a referral to Dr Geena Seay 03/21/2024 Essential hypertension 55869300 I10 On amlodipine 10mg dailyOn HCTZ 12.5mg dailyOn lisinopril 40mg dailyOn metoprolol 50mg bid Does well nowGet labs Malignant neoplasm of prostate 909429242 C[address] 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 Addendum: 04/02/2020 :Did get labs from Dr Draper 04/01/2020 : LDL elevated message sent to get on crestor CT chest: PET CT for 1.6cm mass R apical region, CT abd/pelvis : Less sclerotic lesions at T6, T11 and kiran 6th ribs NM bone scan: Neg OV 04/06/2020 :Is to see Dr Pina urology, is to get another whole body scan ion 05/17/[address] Draper this Monday Addendum: 04/07/2020 : 0: Dr Pina: Dr Pina is to review the outside CT and may need a biopsy OV 0:04/08/20 20: Dr Draper: Is to get another CT chest and to decide on the lung biopsy, but Dr Pina has advised him to wait for another month and then repeat the CT as he states that the spot on the lungs has not changed Addendum 09/23/2020 : 0: Dr Pina, is to get another PSA and XR chest OV 11/02/2020 :PSA WNLSees Dr Pina, Dr Draper OV 03/15/2021 :Keep apts with Dr Draper and Dr Faust is doing wellCT chest 03/08/2021 : Increase in size of spiculated cavitary lesion RUL nodule, remaining conspicuou s for primary lung malignancy 09/13/2021 :S/p wedge resection and f/u with CT surgery 05/04/2021 Dr Landrum Wash UDid see Dr Draper 04/08/2021 OV 02/14/2022 :Dr Draper 01/05/2022 : PSA in 6 months and f/u in 6 monthsDr Pina 02/07/2022 : Next in 6 monthsCT A/P: 01/31/2022 : NegBone scan 02/11/2022 : Neg OV 08/17/2022 :Dr Pina 08/08/2022 , needs to see Dr Draper OV 01/16/2023 :Keep apt with Dr Draper OV 07/17/2023 :CT chest 03/30/2023 : Dr Draper OV 11/06/2023 :CT chest 09/22/2023: Dr Draper OV 03/06/2024 : Keep apt with Dr Draper OV 07/15/2024 : Sees Dr Draper OV 11/06/2024 : Keep apt with Dr Draper and Dr Pina Primary er ectile dysfunction 834882836 N52.9 On viagra He is on lupron given by Dr Pina urologyDoe s well Pulmonary embolism 81953 003 I26.99 On xareltoDoe s well Glaucoma 33673700 H40.9 On latanopros t Lanie RozellDr Wigton 06/29/2023 Malignant neoplasm of lung 960810611 C34.[address] Draper and Dr Pina He is doing well CT chest 03/08/2021 : Increase in size of spiculated cavitary lesion RUL nodule, remaining conspicuou s for primary lung malignancy OV 02/14/2022 :S/p RUL wedge resection 03/2021 for T2N[address] surgeon, last OV 11/04/2021 , next in 6 months OV 08/17/2022 :Sees Dr Landrum CT surgeon CT Chest/A/P 03/30/2023 : Dr Bea Marroquin Than: NegCT chest 10/02/2023 : Dr Knight Chest 04/01/2024 : Neg: Dr Cotton OV 07/15/2024 :He does want to get HH thru [facility], the RN for this was in the room today prior to my appointmen t, he is now getting nursing services thru the [facility] as it 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 been 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[employer], 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 that needs to be sent for the medical necessity, this was reviewed today OV 11/06/2024 : Keep apts with Dr Draper last 10/10/2024 , next in 6 months Bilateral hearing loss 98029875 H91.93 [id number] Nithin garcia MD [facility] Internal Med [facility] [address] [facility] [address] [place] [address] 12/24/2024 12:02:31 12/24/2024 12:51:20 Screening - NAD 757212656 Z13.9 C-scope: 06/18/18 Dr Ortiz n, no more c-scope UTD flu shotUTD tdap 05/16/18UT D on shingles shot 06/27/18PC V 05/16/18 #13, UTD #23UTD on COVID 19 vaccineGet RSV vaccine RTC in 4 monthGet labsER if worseHe and his is agreeable to this plan of care Hyperlipidemia 89935904 E78.5 On atorvastat in 40mg dailyGet labs Gastroesop hageal reflux disease without esophagitis 393460363 K21.9 On omeprazole EGD 09/15/2023 Take as needed Cardiac arrhythmia 11550 7007 I49.9 S/p pacemaker 11/01-10/20 04/07, admitted and 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, he did have a PM implanted by Dr Briseno on 10/11/19 US duplex 02/24/2023 : Dr Briseno Sees TIGISTKathy Briseno Liver enzy mes level above reference range 857805368 R74.01 11/09/2020 : Dr Colbert/Miguel Perez [employer]: [facility]: get labs and f/u in 3 months 02/17/2021 : Dr Colbert/Miguel Ley Ana: [facility]: F/u PRN, LFTs WNL on 11/06/2020 Does well Vitamin D deficiency 347 31809 E55.9 Hyperglycemia 50733400 R 73.9 Check A1CGet to diet and exercise Skin lesion 46934921 L98 .9 Lipoma like lesion noted in the mid chest below the sternum, non tenderSeen by Dr Seay OV 03/06/2024 :Small raised dark mole noted on the R lateral mid thighGet a referral to Dr Geena Seay 03/21/2024 Essential hypertension 40509324 I10 On amlodipine 10mg dailyOn HCTZ 12.5mg dailyOn lisinopril 40mg dailyOn metoprolol 50mg bid Does well nowGet labs Malignant neoplasm of prostate 041620087 C[address] 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 Addendum: 04/02/2020 :Did get labs from Dr Draper 04/01/2020 : LDL elevated message sent to get on crestor CT chest: PET CT for 1.6cm mass R apical region, CT abd/pelvis : Less sclerotic lesions at T6, T11 and kiran 6th ribs NM bone scan: Neg OV 04/06/2020 :Is to see Dr Pina urology, is to get another whole body scan ion 05/17/[address] Draper this Monday Addendum: 04/07/2020 : 0: Dr Pina: Dr Pina is to review the outside CT and may need a biopsy OV 0:04/08/20 20: Dr Draper: Is to get another CT chest and to decide on the lung biopsy, but Dr Pina has advised him to wait for another month and then repeat the CT as he states that the spot on the lungs has not changed Addendum 09/23/2020 : 0: Dr Pina, is to get another PSA and XR chest OV 11/02/2020 :PSA WNLSees Dr Pina, Dr Draper OV 03/15/2021 :Keep apts with Dr Draper and Dr Faust is doing wellCT chest 03/08/2021 : Increase in size of spiculated cavitary lesion RUL nodule, remaining conspicuou s for primary lung malignancy 09/13/2021 :S/p wedge resection and f/u with CT surgery 05/04/2021 Dr Landrum Wash UDid see Dr Draper 04/08/2021 OV 02/14/2022 :Dr Draper 01/05/2022 : PSA in 6 months and f/u in 6 monthsDr Pina 02/07/2022 : Next in 6 monthsCT A/P: 01/31/2022 : NegBone scan 02/11/2022 : Neg OV 08/17/2022 :Dr Pina 08/08/2022 , needs to see Dr Draper OV 01/16/2023 :Keep apt with Dr Draper OV 07/17/2023 :CT chest 03/30/2023 : Dr Draper OV 11/06/2023 :CT chest 09/22/2023: Dr Draper OV 03/06/2024 : Keep apt with Dr Draper OV 07/15/2024 : Sees Dr Draper OV 11/06/2024 : Keep apt with Dr Draper and Dr Pina Primary er ectile dysfunction 726057850 N52.9 On viagra He is on lupron given by Dr Pina urologyDoe s well Pulmonary embolism 94221 003 I26.99 On xareltoDoe s well Glaucoma [id number] H40.9 On latanopros t Lanie RozellDr [place] 06/29/2023 Malignant neoplasm of lung [id number] C34.[address] Draper and Dr Pina He is doing well CT chest 03/08/2021 : Increase in size of spiculated cavitary lesion RUL nodule, remaining conspicuou s for primary lung malignancy OV 02/14/2022 :S/p RUL wedge resection 03/[address] surgeon, last OV 11/04/2021 , next in 6 months OV 08/17/2022 :Sees Dr Landrum CT surgeon CT Chest/A/P 03/30/2023 : Dr Figueredo Than Than: NegCT chest 10/02/2023 : Dr Knight Chest 04/01/2024 : Neg: Dr Cotton OV 07/15/2024 :He does want to get HH thru [facility], the RN for this was in the room today prior to my appointmen t, he is now getting nursing services thru the [facility] as it 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 been 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[employer], 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 that needs to be sent for the medical necessity, this was reviewed today OV 11/06/2024 : Keep apts with Dr Draper last 10/10/2024 , next in 6 months Bilateral hearing loss [id number] H91.93 [id number] Nithin garcia MD [facility] [address] [place] [address] 02/05/2025 10:01:32 02/05/2025 11:01:00 Screening - NAD [id number] Z13.9 C-scope: 06/18/18 Dr Ortiz n, no more c-scope UTD flu shotUTD tdap 05/16/18UT D on shingles shot 06/27/18PC V 05/16/18 #13, UTD #23UTD on COVID 19 vaccineGet RSV vaccine RTC in 4 monthGet labsER if worseHe and his is agreeable to this plan of care Hyperlipidemia [id number] E78.5 On atorvastat in 40mg daily, more diet and exercise is neededGet labs Gastroesop hageal reflux disease without esophagitis [id number] K21.9 On omeprazole EGD 09/15/2023 Take as needed Cardiac arrhythmia 64657 7007 I49.9 S/p pacemaker 11/01-10/20 04/07, admitted and 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, he did have a PM implanted by Dr Briseno on 10/11/19 US duplex 02/24/2023 : Dr Briseno Sees Mei Briseno Liver enzy mes level above reference range [id number] R74.01 11/09/2020 : Dr Colbert/Miguel Perez VENEER SANDER: [facility]: get labs and f/u in 3 months 02/17/2021 : Dr Colbert/Miugel Layr Ana: [facility]: F/u PRN, LFTs WNL on 11/06/2020 Does well Vitamin D deficiency [id number] 90755 E55.9 Hyperglycemia 80060806 R 73.9 Check A1CGet to diet and exercise Skin lesion 23928835 L98 .9 Lipoma like lesion noted in the mid chest below the sternum, non tenderSeen by Dr Seay OV 03/06/2024 :Small raised dark mole noted on the R lateral mid thighGet a referral to Dr Geena Seay 03/21/2024 Essential hypertension 70753259 I10 On amlodipine 10mg dailyOn HCTZ 12.5mg dailyOn lisinopril 40mg dailyOn metoprolol 50mg bid Does well nowGet labs Malignant neoplasm of prostate [id number] C[address] 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 Addendum: 04/02/2020 :Did get labs from Dr Draper 04/01/2020 : LDL elevated message sent to get on crestor CT chest: PET CT for 1.6cm mass R apical region, CT abd/pelvis : Less sclerotic lesions at T6, T11 and kiran 6th ribs NM bone scan: Neg OV 04/06/2020 :Is to see Dr Pina urology, is to get another whole body scan ion 05/17/[address] Draper this Monday Addendum: 04/07/2020 : 0: Dr Pina: Dr Pina is to review the outside CT and may need a biopsy OV 0:04/08/20 20: Dr Draper: Is to get another CT chest and to decide on the lung biopsy, but Dr Pina has advised him to wait for another month and then repeat the CT as he states that the spot on the lungs has not changed Addendum 09/23/2020 : 0: Dr Pina, is to get another PSA and XR chest OV 11/02/2020 :PSA WNLSees Dr Pina, Dr Draper OV 03/15/2021 :Keep apts with Dr Draper and Dr Faust is doing wellCT chest 03/08/2021 : Increase in size of spiculated cavitary lesion RUL nodule, remaining conspicuou s for primary lung malignancy 09/13/2021 :S/p wedge resection and f/u with CT surgery 05/04/2021 Dr Landrum Wash UDid see Dr Draper 04/08/2021 OV 02/14/2022 :Dr Draper 01/05/2022 : PSA in 6 months and f/u in 6 monthsDr Pina 02/07/2022 : Next in 6 monthsCT A/P: 01/31/2022 : NegBone scan 02/11/2022 : Neg OV 08/17/2022 :Dr Pina 08/08/2022 , needs to see Dr Draper OV 01/16/2023 :Keep apt with Dr Draper OV 07/17/2023 :CT chest 03/30/2023 : Dr Draper OV 11/06/2023 :CT chest 09/22/2023: Dr Draper OV 03/06/2024 : Keep apt with Dr Draper OV 07/15/2024 : Sees Dr Draper OV 11/06/2024 : Keep apt with Dr Draper and Dr Pina OV 02/05/2025 : Keep apt with his oncologist and urologist Primary er ectile dysfunction [id number] N52.9 On viagra He is on lupron given by Dr Pina urologyDoe s well Pulmonary embolism 51583 003 I26.99 On xareltoDoe s well Glaucoma 96227477 H40.9 On latanopros t Lanie JenzellDr [place] 06/29/2023 Malignant neoplasm of lung [id number] C34.[address] Draper and Dr Pina He is doing well CT chest 03/08/2021 : Increase in size of spiculated cavitary lesion RUL nodule, remaining conspicuou s for primary lung malignancy OV 02/14/2022 :S/p RUL wedge resection 03/20[address] T[address] surgeon, last OV 11/04/2021 , next in 6 months OV 08/17/2022 :Sees Dr Landrum CT surgeon CT Chest/A/P 03/30/2023 : Dr Bea Marroquin Than: NegCT chest 10/02/2023 : Dr BarnesT Chest 04/01/2024 : Neg: Dr Cotton OV 07/15/2024 :He does want to get HH thru [facility], the RN for this was in the room today prior to my appointmen t, he is now getting nursing services thru the [facility] as it 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 been 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[employer], 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 that needs to be sent for the medical necessity, this was reviewed today OV 11/06/2024 : Keep apts with Dr Draper last 10/10/2024 , next in 6 months Bilateral hearing loss [id number] H91.93 Pain of bi lateral hands [id number] M79.641 M79.642 Health Concerns Section Related Observation LastModified by Organization Detai ls LastModified Time None Recorded Concern Status LastModified by Organization Details LastModified Time None Recorded Advance Directives Directive N: information provided prev iously Payers Encounter Date Sequence Insurance Name Policy Number Policy Tan Covered Member ID Tan Member ID Guarantor Name 06/18/2024 1 [place] Roque Felix [id number] 63 Jeanna Sarwat Felix 06/18/2024 2 FOR LIFE ( - MEDICARE SUPPLEMENT) Jeanna Felix [id number] Jeanna Felix 07/15/2024 1 [place] Ro[place] Felix [id number] Jeanna Felix 07/15/2024 2 FOR LIFE ( - MEDICARE SUPPLEMENT) Jeanna Felix [id number] Jeanna Felix 11/06/2024 1 [place] Ro[place] Felix [id number] Jeanna Felix 11/06/2024 2 FOR LIFE ( - MEDICARE SUPPLEMENT) Jeanna Felix [id number] Jeanna Felix 12/24/2024 1 [place] Roque Felix [id number] Jeanna Felix 12/24/2024 2 FOR LIFE ( - MEDICARE SUPPLEMENT) Jeanna Felix [id number] Jeanna Felix 02/05/2025 1 [place] Roque Felix [id number] Jeanna Felix 02/05/2025 2 FOR LIFE ( - MEDICARE SUPPLEMENT) Jeanna Felix [id number] Jeanna Felix Notes Date Note Type Note Provider Name and Address Organization Details Recorded Time 06/18/2024 text/html Primary care/Ref erring provider: Nithin Raya MD; Rey Briseno MD During the [facility] home sleep study on 02/18/22, AHI = 11.During the [facility] titration sleep study on 06/03/22, sleep onset = 37.5 minutes, REM onset = 338 minutes, Respironics large Rossana nasal mask was applied @ 9 cmH2O. PLMI = 8 and he is here to go over his lab workup. At home since 05/27/24, the patient uses a ResMed AirSense 11 autoset unit with heated humidification. The patient does not need the ramp to start low and go up slowly on the pressure. There is some xerostomia in a.m. There is no hose/mask condensation with water. The patient wears a ResMed medium AirFit F30i full face mask without chin strap. There is no claustrophobia, no nostril/nose bridge irritation, no facial rash, no facial numbness, no nosebleeding. The patient feels more refreshed upon waking and daytime alertness is improved. Energy levels are sustained until early afternoon, around 2 pm. At home, the patient sleeps from 10 pm to 6 am and wakes up without an alarm. Snoring: moderate, since .Snorting: noChoking: noCoughing: noGasping: noGagging: yesSighing: noWitnessed apnea: yesTwitching or jerking of leg(s), arm(s), body, head: yesTeeth grinding: noTeeth clenching: noSleeptalking: yesSleepwalking: noSleep crying: yesBedwetting: noTongue/lip/gum/cheek biting: noSleeping with open mouth: yesSleep paralysis: noHypnagogic hallucinations: noHypnopompic hallucinations: noVivid dreams: yesDifficulty with sleep onset: noDifficulty with sleep maintenance: yesSleep interruptions: nocturia x 4Patient wakes up with: fatigue, xerostomiaDaytime cataplexy: noMorning hypersomnolence: noAfternoon hypersomnolence: yesCaffeine sources in diet: coffee 2 cups per day, tea 1 glass per day, soda 1/3 bottle per day Associated medical and psychiatric conditions:Congestive heart failure: noCoronary artery disease: noMyocardial infarction: noHypertension: yesStroke: noBronchial asthma: noChronic obstructive pulmonary disease: noDepression: noBipolar disorder: noAnxiety: noPanic disorder: noPosttraumatic stress disorder: noAttention deficit and hyperactivity disorder: noObsessive Compulsive disorder: noSchizophrenia: noSchizoaffective disorder: noPersonality disorder: noChronic analgesic use: noChronic sedative/hypnotic use: no EPWORTH SLEEPINESS SCALE (ESS) CHANCE OF DOZING SCORE0 = would never doze1 = slight chance of dozing2 = moderate chance of dozing3 = high chance of dozing SITUATION AND CHANCE OF DOZINGSitting and reading - 1Watching television - 1Sitting inactive in a public place (e.g. a theater or meeting) - 0As a passenger in a car for an hour without a break - 0Lying down to rest in the afternoon when circumstances permit - 3Sitting and talking to someone - 0Sitting quietly after lunch without alcohol - 0In a car, while stopped for a few minutes in the traffic - 0TOTAL SCORE 5Subjectively, patient has a slight chance of dozing. Harley Lucio MD [address], [facility] [address], [place], [address], [place] [facility] 06/18/2024 08:50:09 07/15/2024 text/html Here to reinaldo Anaya Hx:HTNHLDGERDEDProstat e cancerCAD s/p pacemakerReviewed family and surgical and social familyHere to discuss above and get labsHe states that he has noted some LE edema, and he used to be on HCTZ and Dr Trejo took him off this OV 05/30/18Here for his 2 week BP checkHe feels that he is doing well at this timeHe did do the labs OV 06/27/18:Here with his wifeHe states that he is doing well at this timeHe did do the labs OV 09/26/18:Here for his routine aptHere with his , he has done his labsDoing well at this time OV 12/26/18:Here for his routine aptHe states that he is doing wellHere with his wifeLabs on 12/24/18 OV 04/08/19:Here for his routine aptHe is doing well at this timeHere with his wifeHe did do labs OV 10/07/19:Here for his routine aptHe is here for his routine aptHe did do the labsHe is to get a ablation done by Dr Briseno and is on pradaxa now OV 11/25/2019:Here for his f/u post hospital f or a PE now on xareltoHere with his wifeHe states that he is feeling well today OV 04/06/2020:Tele vistHe is agreeable to do this visitHe feels wellHe states that he did see Dr Moscoso does have some nasal congestion and wants 'meds' OV 07/13/2020:Here for his routine aptNo new labsDoes feel wellHere with his wifeHe is here for his MWV also OV 11/02/2020:Here for his routine aptHe is doing wellHe did do the labs and he is her with his OV 03/15/2021:Here for his routine apt with his wifeHe feels wellHe did do the labs by Dr Pina and has also [facility] chest [facility] OV 09/13/2021:Here for his routine aptHe did do the MWVHe feels wellHe did do the labs on 09/08/2021 OV 02/14/2022:Here for his routine aptHe is doing wellHere with his wifeHe did the labs on 02/01/2022 OV 08/17/2022:Here for his f/u apt, he feels well, he is here with his and he did do the labs OV 01/16/2023:Here for his f/u apt, he is doing well, he is here with his , here for his MWV also OV 07/17/2023: Here for his routine apt, he is doing well today, he did do the labs on 07/14/2023 OV 11/06/2023: Here for his f/u apt, he is doing well today OV 03/06/2024: Here for his routine apt, he is doing very well today, he did do the labs, here with his OV 07/15/2024: Here for his routine apt, he feels well today, 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 [employer] [facility] agency that is to evaluate him every month thru the [facility] as he has been diagnosed with lung ca and prostate ca d/t him working for [employer]He has done the labs Nithin Raya MD [address], [facility] [address], [place], [address], [place] [employer] 07/15/2024 14:39:14 11/06/2024 text/html Here to reinaldo Anaya Hx:HTNHLDGERDEDProstat e cancerCAD s/p pacemakerReviewed family and surgical and social familyHere to discuss above and get labsHe states that he has noted some LE edema, and he used to be on HCTZ and Dr Trejo took him off this OV 05/30/18Here for his 2 week BP checkHe feels that he is doing well at this timeHe did do the labs OV 06/27/18:Here with his wifeHe states that he is doing well at this timeHe did do the labs OV 09/26/18:Here for his routine aptHere with his , he has done his labsDoing well at this time OV 12/26/18:Here for his routine aptHe states that he is doing wellHere with his wifeLabs on 12/24/18 OV 04/08/19:Here for his routine aptHe is doing well at this timeHere with his wifeHe did do labs OV 10/07/19:Here for his routine aptHe is here for his routine aptHe did do the labsHe is to get a ablation done by Dr Briseno and is on pradaxa now OV 11/25/2019:Here for his f/u post hospital f or a PE now on xareltoHere with his wifeHe states that he is feeling well today OV 04/06/2020:Tele vistHe is agreeable to do this visitHe feels wellHe states that he did see Dr Moscoso does have some nasal congestion and wants 'meds' OV 07/13/2020:Here for his routine aptNo new labsDoes feel wellHere with his wifeHe is here for his MWV also OV 11/02/2020:Here for his routine aptHe is doing wellHe did do the labs and he is her with his OV 03/15/2021:Here for his routine apt with his wifeHe feels wellHe did do the labs by Dr Pina and has also [facility] chest [facility] OV 09/13/2021:Here for his routine aptHe did do the MWVHe feels wellHe did do the labs on 09/08/2021 OV 02/14/2022:Here for his routine aptHe is doing wellHere with his wifeHe did the labs on 02/01/2022 OV 08/17/2022:Here for his f/u apt, he feels well, he is here with his and he did do the labs OV 01/16/2023:Here for his f/u apt, he is doing well, he is here with his , here for his MWV also OV 07/17/2023: Here for his routine apt, he is doing well today, he did do the labs on 07/14/2023 OV 11/06/2023: Here for his f/u apt, he is doing well today OV 03/06/2024: Here for his routine apt, he is doing very well today, he did do the labs, here with his OV 07/15/2024: Here for his routine apt, he feels well today, 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 [employer] agency that is to evaluate him every month thru the [facility] as he has been diagnosed with lung ca and prostate ca d/t him working for [employer]He has done the labs OV 11/06/2024: Here for his f/u apt, he is doing well, he did see Dr Draper his cancer MD and was told all was well, he did do the labs, he is here with his Nithin Raya MD [address] [place] [address], [address], [place], [address], [place] [facility] 11/06/2024 09:55:31 12/24/2024 text/html Here to reinaldo adrian Héctor Hx:HTNHLDGERDEDProstat e cancerCAD s/p pacemakerReviewed family and surgical and social familyHere to discuss above and get labsHe states that he has noted some LE edema, and he used to be on HCTZ and Dr Trejo took him off this OV 05/30/18Here for his 2 week BP checkHe feels that he is doing well at this timeHe did do the labs OV 06/27/18:Here with his wifeHe states that he is doing well at this timeHe did do the labs OV 09/26/18:Here for his routine aptHere with his , he has done his labsDoing well at this time OV 12/26/18:Here for his routine aptHe states that he is doing wellHere with his wifeLabs on 12/24/18 OV 04/08/19:Here for his routine aptHe is doing well at this timeHere with his wifeHe did do labs OV 10/07/19:Here for his routine aptHe is here for his routine aptHe did do the labsHe is to get a ablation done by Dr Briseno and is on pradaxa now OV 11/25/2019:Here for his f/u post hospital f or a PE now on xareltoHere with his wifeHe states that he is feeling well today OV 04/06/2020:Tele vistHe is agreeable to do this visitHe feels wellHe states that he did see Dr Moscoso does have some nasal congestion and wants 'meds' OV 07/13/2020:Here for his routine aptNo new labsDoes feel wellHere with his wifeHe is here for his MWV also OV 11/02/2020:Here for his routine aptHe is doing wellHe did do the labs and he is her with his OV 03/15/2021:Here for his routine apt with his wifeHe feels wellHe did do the labs by Dr Pina and has also [facility] OV 09/13/2021:Here for his routine aptHe did do the MWVHe feels wellHe did do the labs on 09/08/2021 OV 02/14/2022:Here for his routine aptHe is doing wellHere with his wifeHe did the labs on 02/01/2022 OV 08/17/2022:Here for his f/u apt, he feels well, he is here with his and he did do the labs OV 01/16/2023:Here for his f/u apt, he is doing well, he is here with his , here for his MWV also OV 07/17/2023: Here for his routine apt, he is doing well today, he did do the labs on 07/14/2023 OV 11/06/2023: Here for his f/u apt, he is doing well today OV 03/06/2024: Here for his routine apt, he is doing very well today, he did do the labs, here with his OV 07/15/2024: Here for his routine apt, he feels well today, 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 [employer] agency that is to evaluate him every month thru the [facility] as he has been diagnosed with lung ca and prostate ca d/t him working for [employer]He has done the labs OV 11/06/2024: Here for his f/u apt, he is doing well, he did see Dr Draper his cancer MD and was told all was well, he did do the labs, he is here with his OV 12/24/2024: Here for his f/u apt, he is doing well today Nithin Raya MD [address] [facility], [facility] [address], [place], [address], [place] [employer] 01/10/2025 10:52:06 02/05/2025 text/html Here to reinaldo Anaya Hx:HTNHLDGERDEDProstat e cancerCAD s/p pacemakerReviewed family and surgical and social familyHere to discuss above and get labsHe states that he has noted some LE edema, and he used to be on HCTZ and Dr Trejo took him off this OV 05/30/18Here for his 2 week BP checkHe feels that he is doing well at this timeHe did do the labs OV 06/27/18:Here with his wifeHe states that he is doing well at this timeHe did do the labs OV 09/26/18:Here for his routine aptHere with his , he has done his labsDoing well at this time OV 12/26/18:Here for his routine aptHe states that he is doing wellHere with his wifeLabs on 12/24/18 OV 04/08/19:Here for his routine aptHe is doing well at this timeHere with his wifeHe did do labs OV 10/07/19:Here for his routine aptHe is here for his routine aptHe did do the labsHe is to get a ablation done by Dr Briseno and is on pradaxa now OV 11/25/2019:Here for his f/u post hospital f or a PE now on xareltoHere with his wifeHe states that he is feeling well today OV 04/06/2020:Tele vistHe is agreeable to do this visitHe feels wellHe states that he did see Dr Moscoso does have some nasal congestion and wants 'meds' OV 07/13/2020:Here for his routine aptNo new labsDoes feel wellHere with his wifeHe is here for his MWV also OV 11/02/2020:Here for his routine aptHe is doing wellHe did do the labs and he is her with his OV 03/15/2021:Here for his routine apt with his wifeHe feels wellHe did do the labs by Dr Pina and has also [facility] chest [facility] OV 09/13/2021:Here for his routine aptHe did do the MWVHe feels wellHe did do the labs on 09/08/2021 OV 02/14/2022:Here for his routine aptHe is doing wellHere with his wifeHe did the labs on 02/01/2022 OV 08/17/2022:Here for his f/u apt, he feels well, he is here with his and he did do the labs OV 01/16/2023:Here for his f/u apt, he is doing well, he is here with his , here for his MWV also OV 07/17/2023: Here for his routine apt, he is doing well today, he did do the labs on 07/14/2023 OV 11/06/2023: Here for his f/u apt, he is doing well today OV 03/06/2024: Here for his routine apt, he is doing very well today, he did do the labs, here with his OV 07/15/2024: Here for his routine apt, he feels well today, 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 [employer] agency that is to evaluate him every month thru the [facility] as he has been diagnosed with lung ca and prostate ca d/t him working for [employer]He has done the labs OV 11/06/2024: Here for his f/u apt, he is doing well, he did see Dr Draper his cancer MD and was told all was well, he did do the labs, he is here with his OV 12/24/2024: Here for his f/u apt, he is doing well today OV 02/05/2025: Here for his f/u apt, he is doing well and is here with his Nithin Raya MD [address] [facility], [address], [place], [address], [place] [facility] 02/05/2025 14:21:33
--- OUTSIDE RECORDS SUMMARY | 2025-04-17 07:29 | XMS_ITS | Clinical Summary ---
Author Organization [facility] [employer] Address [address] [place] [address] Care Team Providers Care President And Chief Executive Officer Name Role Phone Nithin Raya MD Primary Care Provider Source Comments [facility] [employer],non-owned Affiliates and Associated Physician Practices is amultiple site organization consisting of ambulatory clinics and hospital sitesin [place], [place], [place] and [place]. This disclosure is being madepursuant to the Care Everywhere program and may not contain all information available regarding this patient. Last updated 18.[facility] [employer] Allergies No known active allergies Medications * Be aware that medications may not be up to date on this document. Alwaysverify current medications with the patient. XARELTO 20 MG tablet 0 Active metoprolol tartrate (LOPRESSOR) 100 MG tablet once daily 0 Active atorvastatin (LIPITOR) 20 MG tablet 0 Active LEUPROLIDE ACETATE, 6 MONTH, IM Inject into muscle Every 180 days Active amLODIPine (NORVASC) 10 MG tablet 0 Active Multiple Vitamin Take 1 tablet by mouth once daily Active Vitamin E 180 MG CAPS vitamin E 1 tab daily 180 mg Active Garlic (GARLIQUE PO) Active vitamin D3 (CHOLECALCIFERO L) 25 MCG (1000 UNITS) tablet Take by mouth once daily Active Latanoprost 0.005 % EMUL by Ophthalmic route at bedtime 1 DROP IN BOTH EYES AT BEDTIME Active brinzolamide (AZOPT) 1 % ophthalmic suspension brinzolamide 1 % eye drops,suspension SHAKE LIQUID AND INSTILL 1 DROP IN BOTH EYES TWICE DAILY 2 Active dorzolamide (TRUSOPT) 2 % ophthalmic solution dorzolamide 2 % eye drops INSTILL 1 DROP IN BOTH EYES TWICE DAILY 2 Active lisinopril (PRINIVIL; ZESTRIL) 40 MG tablet 2 Active Active Problems Problem Noted Date Diagnosed Date Non-small cell cancer of right lung 09/20/2021 Elevated liver enzymes 11/06/2020 Elevated alkaline phosphatase level 11/06/2020 Lung nodule 09/28/2020 Overview (02/15/2022): Added automatically from request for surgery [id number] History of pulmonary embolism 04/08/2020 Ventricular fibrillation 09/23/2019 Overview (02/17/2021): Added automatically from request for surgery [id number] Added automatically from request for surgery [id number] Prostate cancer 05/16/2018 Immunizations Immunization Administration Dates Next Due Covid Moderna primary monovalent 12+ yr 0.5mL ,12/03/2020 Family History Medical History Relation Name Comments Renal Disease Brother CVA Father Hypertension Father CVA Mother Hypertension Mother Hypertension Sister 1 Heart Failure Sister 2 Cancer - Uterine Sister 3 Relation Name Status Comments Brother Father Mother Sister 1 Alive Sister 2 Sister 3 Social History Tobacco Use Types Packs/Day Years Used Date Smoking Tobacco: Never Smokeless Tobacco: Never Alcohol Use Standard Drinks/Week Comments Never 0 (1 standard drink = 0.6 oz pur e alcohol) AUDIT-C Answer Date Recorded Q1: How often do you have a drink containing alc ohol? 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 Gender Identity Not on file Sexual Orientation Not on file Last Filed Vital Signs Vital Sign Reading Time Taken Comments Blood Pressure 138/86 02/15/2023 9:10 AM CDT Pulse 68 02/15/2023 9:10 AM CDT Temperature 36 C (96.8 F) 02/15/2023 9:10 AM CDT Respiratory Rate 16 02/15/2022 9:47 AM CDT Oxygen Saturation 99% 02/15/2023 9:10 AM CDT Inhaled Oxygen Concentration - - Weight 91.8 kg (202 lb 6.4 oz) 02/15/2023 9:10 A M CDT Height 170.2 cm (5' 7) 02/15/2023 9:10 AM CDT Body Mass Index 31.7 02/15/2023 9:10 AM CDT Plan of Treatment Health Maintenance Due Date Last Done Comments MEDICARE AWV 12 MONTHS 1942 DTAP/TDAP/TD VACCINES (1 - Tdap) 1961 PNEUMOCOCCAL VACCINE 50+ (1 of 1 - PCV) 1992 ZOSTER VACCINE (1 of 2) 1992 Respiratory Syncytial Virus (RSV) Vaccine Pt: or over 60 yrs (1 - 1-dose 75+ series) 2017 COVID-19 VACCINE ( - season) 2024 09/13/2021, 01/01/2021, 12/03/2020 DEPRESSION SCREENING 11/20/2024 INFLUENZA VACCINE (Season Ended) 2025 08/23/2021, 08/06/2020, 10/07/2019, Additional history exists HEPATITIS B VACCINE Aged Out No longe r eligible based on patient's age to complete this topic HIB VACCINE Aged Out No longer eligi ble based on patient's age to complete this topic HPV VACCINE Aged Out No longer eligi ble based on patient's age to complete this topic MENINGOCOCCAL (Group B) VACCINE SHARED DECISION-MAKING Aged Out No longer eligible based on patient's age to complete this topic MENINGOCOCCAL GROUPS A/C/Y/W VACCINE Aged Out No longer eligible based on patient's age to complete this topic Goals Goal Patient Goal Type Associated Problems Recent Progress Patient-Stated? Author Medication Management General On track( 022 9:56 AM CDT) No Latia Pineda, RN Note: Expected end date: ongoing Interventions: Take all medications as prescribed Complete Hepatitis C therapy as prescribed Let your doctor know right away about any changes in your medications Make sure to request a refill of your medication at least one week prior to your last dose Safety General On track( 022 9:56 AM CDT) Latia Koo RN Note: Expected end date: ongoing Interventions: Your nurse will assess your risk for falls/injury each visit Be aware of medications that could predispose you to falling Wear non-skid/rubber sole footwear Keep personal items within easy reach Use some light at night in your [place] [address] [facility] [place] Address: [facility] [address] [place] [address] [facility] MEDICARE MEDICARE Care Teams President And Chief Executive Officer Relationship Specialty Start Date End Date Nithin Raya MD [address] [address] PCP - General 11/02/20
--- OUTSIDE RECORDS SUMMARY | 2025-04-17 07:29 | XMS_ITS | Clinical Summary ---
Author Organization [facility] Address [address] [place] [address] Care Team Providers Care Resource Economist Name Role Phone Nithin Raya MD Primary Care Provider Allergies No known active allergies Medications rivaroxaban (Xarelto) 20 mg Tablet Xarelto 20 mg tablet 1 Tablet Daily Active metoprolol tartrate (LOPRESSOR) 50 mg tablet metoprolol tartrate 50 mg tablet TK 1 T PO BID FOR 14 DAYS 02/23/20 18 Active atorvastatin (LIPITOR) 20 mg tablet Take 40 mg by mouth daily. 12/10/19 20 Active cholecalciferol (Vitamin D3) 400 unit Tablet Vitamin D3 qd Active omeprazole (PriLOSEC) 20 mg Capsule, Delayed Release(E.C.) every 24 hours. Active MULTIVITAMIN 12 IV multivitamin qd Active calcium carbonate-mag hydroxid 1,000-200 mg Tablet, Chewable Take 1 Tablet by mouth. Active montelukast (SINGULAIR) 10 mg tablet every 24 hours. Acti ve Magnesium 200 mg Tablet 400 mg. Active cyanocobalamin (VITAMIN B-12) 100 mcg tablet Take 100 mcg by mouth. Active lisinopriL (PRINIVIL) 40 mg tablet 40 mg daily. 04/08/20 19 Active iron bisgly,ps-FA-B-C #12-succ 65 mg-65 mg -1,000 mcg (24) Tablet iron 65 mg tablet Take by oral route. Active hydroCHLOROthiaz pawel (MICROZIDE) 12.5 mg capsule 04/08/20 19 Active fluticasone propion-salmeter oL (ADVAIR DISKUS,WIXELA INHUB) 100-50 mcg/dose disk inhaler 04/06/20 20 Active flu vacc ci3750,65up,/MF5 9C/PF (FLUAD ,65YR+,,P F, IM) 10/07/20 19 Active COVID-19 vacc,mRNA,Modern a,/PF (MODERNA COVID-19 VACCINE, EUA, IM) 09/13/20 21 Active latanoprost (XALATAN) 0.005 % solution 01/26/20 21 Active flu vaccine quadrivalent MF59C , 65 yr+,,PF, (Fluad Quad ,65y up,,PF,) 60 mcg (15 mcg x 4)/0.5 mL Syringe syringe 08/06/20 20 Active amLODIPine (NORVASC) 10 mg tablet 07/13/20 20 Active GARLIC ORAL Take by mouth. Act susu flu vaccine quadrivalent MF59C , 65 yr+,,PF, (Fluad Quad ,65y up,,PF,) 60 mcg (15 mcg x 4)/0.5 mL Syringe syringe 08/23/20 Active leuprolide acetate (LUPRON DEPOT) 22.5 mg 3 month IM syringe Inject 22.5 mg by intramuscular injection every 90 days. Every 6 months Active brinzolamide (AZOPT) 1 % suspension SHAKE LIQUID AND INSTILL 1 DROP IN BOTH EYES TWICE DAILY Active Active Problems Problem Noted Date Diagnosed Date Non-small cell cancer of right lung 09/20/2021 Prostate cancer 04/08/2020 History of pulmonary embolism 04/08/2020 Resolved Problems Problem Noted Date Diagnosed Date Resolved Date Mass of upper lobe of right lung 04/08/2020 09/20/2021 Encounters Date Type Department Care Team Description 04/10/2025 External Device Data [facility] ABSTRACTION Provider, Abstract 04/09/2025 External Device Data [facility] ABSTRACTION Provider, Abstract 04/08/2025 External Device Data [facility] ABSTRACTION Provider, Abstract 01/22/2025 External Device Data [facility] ABSTRACTION Provider, Abstract from Last 3 Months Family History Medical History Relation Name Comments Kidney Disease Brother Cancer Sister 2 Heart Disease Sister 3 Relation Name Status Comments Brother Daughter Alive Father Mother Sister 1 Alive Sister 2 Sister 3 Son Alive Social History Tobacco Use Types Packs/Day Years Used Date Smoking Tobacco: Never Smokeless Tobacco: Never Tobacco Cessation:Counseling Given: Not Answered Alcohol Use Standard Drinks/Week Comments Never 0 (1 standard drink = 0.6 oz pur e alcohol) Sex and Gender Information Value Date Recorded Sex Assigned at Not on file Legal Sex 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 Gender Identity Not on file Sexual Orientation Not on file Last Filed Vital Signs Vital Sign Reading Time Taken Comments Blood Pressure 130/78 10/10/2024 12:10 PM ROTARY SHEAR OPERATOR Pulse 70 10/10/2024 12:08 PM ROTARY SHEAR OPERATOR Temperature 36.6 C (97.8 F) 10/10/2024 12:08 PM ROTARY SHEAR OPERATOR Respiratory Rate 15 10/10/2024 12:08 PM ROTARY SHEAR OPERATOR Oxygen Saturation 97% 10/10/2024 12:08 PM ROTARY SHEAR OPERATOR Inhaled Oxygen Concentration - - Weight 89.1 kg (196 lb 6.4 oz) 10/10/2024 12:08 PM ROTARY SHEAR OPERATOR Height 172.7 cm (5' 8) 01/05/2022 9:31 AM ROTARY SHEAR OPERATOR Body Mass Index 29.86 01/05/2022 9:31 AM ROTARY SHEAR OPERATOR Plan of Treatment Upcoming Encounters Date Type Department Care Team (Late st Contact Info) Description 04/24/2025 11:30 AM CDT Office Visit [facility] Oncology and Hematology - [place] [address] [facility] [address] [place] [address] Chuckie Draper MD [address] [place] [address] Health Maintenance Due Date Last Done Comments RSV VACCINE (60+ or ) (1 - 1-dose 75+ series) 2017 ZOSTER VACCINE (2 of 2) 08/02/2018 06/07/2018 INFLUENZA VACCINE (#1) 2024 0, 08/06/2020, 10/07/2019, Additional history exists COVID-19 Vaccine (3 - 2023-2 5 season) 2024 01/01/2021, 12/03/2020 DTAP/TDAP/TD VACCINES (2 - T d or Tdap) 05/16/2028 05/16/2018 COLORECTAL SCREENING Discontinued 06/18/2018 Colorectal Cancer Screening Discontinued PNEUMOCOCCAL VACCINE 50+ YEARS Completed 0 03/11/2019, 05/16/2018, 05/01/2017, Additional history exists FIT-DNA Q 3 years Discontinued FIT/FOBT Q 1 year Discontinued Flex Sig/CT Colonography Q 5 years Discontinued Insurance MEDICARE PART A AND B CX Care Teams Resource Economist Relationship Specialty Start Date End Date Nithin Raya MD PCP - General Internal Medicine 11/26/19
--- OUTSIDE RECORDS SUMMARY | 2025-04-17 07:29 | XMS_ITS | Encounter Summary ---
Author Organization [facility] Address [address] [place] [address] Care Team Providers Care Tube Bending Machine Operator Name Role Phone Keri Raya MD Primary Care Provide r Girish Boykin MD Unavailable Devon Briseno MD Unavailable [phone] Encounter Details Date Type Department Care Team (Late st Contact Info) Description 03/10/2021 Telephone [facility] [address] [place] [phone] Nanette Reese, RT Social History Tobacco Use Types Packs/Day Years Used Date Smoking Tobacco: Never Smokeless Tobacco: Never Alcohol Use Standard Drinks/Week Comments Never 0 (1 standard drink = 0.6 oz pur e alcohol) AUDIT-C Answer Date Recorded Frequency of Alcohol Consumption Never 04/15/2020 Average Number of Drinks Not on file 020 Frequency of Binge Drinking Not on file 03/21 Sex and Gender Information Value Date Recorded Sex Assigned at Not on file Legal Sex Male 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 Gender Identity Not on file Sexual Orientation Not on file documented as of this encounter Plan of Treatment Not on file documented as of this encounter Visit Diagnoses Not on filedocumented in this encounter Care Teams Tube Bending Machine Operator Relationship Specialty Start Date End Date Keri Raya MD [address] [address] PCP - General Internal Medicine 05/21/18 Girish Boykin MD [address] [facility] [address] [place] [address] Consulting Physician Pulmonary Disease 11/03/19 Devon Briseno MD [address] [place] [address] Nutrition Services Aide Cardiology 03/23/21 documented as of this encounter
--- OUTSIDE RECORDS SUMMARY | 2025-04-17 07:29 | XMS_ITS | Continuity of Care Document ---
Author Organization [facility] Address [address] [place] [address] [place] [address] Phone Care Team Providers Care School Coordinator Name Role Phone Unavailable Unavailable Unavailable Advance Directives Directive Yes / No Effective Date File Name No Information Encounters Encounter Description Practice Location Reason(s) For Visit Diagnoses Date Provider Providers Copied on Encounter [facility], [id number] [place] [address] [address] [place], [place], [id number], [place] tel:[phone] [facility] No Information Mar-3 0-200 0 No Information Family History Family Member Type Diagnosis Age At Onset No Information Payers Payer name Insurance type Covered constitution party ID Authoriza tion(s) No Information Social History Type Description Quantity Date Captured Comments Sex Male Smoking Status No Information Chief Complaint And Reason For Visit No Information Reason For Referral Reason For Referral No Information History Of Present Illness Encounter Date Complaint History Of Prese nt Illness No Information Functional Status Date Functional Assessmen t No Information Instructions Date Instruction Additional Infor mation No Information Assessments Type Assessment Date No Information Patient Care Teams Name Effective Dates (start - stop) Status Members No Information
[2025-04-17 07:49] LABS: Estimated Glomerular Filt Rate > 60
== END 2025-04-17 07:22 | disposition home or self-care (01) ==
PROVIDERS: PCP Internal Medicine; Visit Provider Internal Medicine Hematology & Oncology
DX: C34.91 Malignant neoplasm of unspecified part of right bronchus or lung (principal); Z98.890 Other specified postprocedural states
CPT/HCPCS: 71260; Q9967

== ENCOUNTER 2025-10-22 09:30 | Outpatient (CLI) | payer MEDICARE, OTHER, SELFPAY ==
--- NOTE | ~2025-10-22 | CT_ITS ---
EXAMINATION: CT diagnostic chest w con DATE: 10/22/2025 10:59 INDICATION: Non-small cell cancer of the right lung TECHNIQUE: Computed tomography (CT) of the chest was performed without intravenous contrast. The dose-length product was 300.20 mGy-cm. Automated exposure control and iterative reconstruction technique were employed. COMPARISON: 04/17/2024 FINDINGS: No significant pleural or pericardial effusion. No thoracic lymphadenopathy. Heart size normal. No significant vascular abnormality. No filling defects in the pulmonary arteries to suggest pulmonary embolism. No new pulmonary nodules or masses. Stable postoperative changes right upper lobe. No pneumothorax. No endobronchial lesions. Stable fissural nodule on the right, likely fissural lymph node. IMPRESSION: 1. Stable chest. No evidence for residual/recurrent neoplasm. Reviewed, dictated and finalized at location I. S ACCOUNT DIRECTOR
--- OUTSIDE RECORDS SUMMARY | 2025-10-22 10:25 | XMS_ITS | Data Portability ---
Author Organization [place] [facility] [employer], Main Office Address [address] [place] [address] Care Team Providers Care Packaging Line Attendant Name Role Phone NITHIN RAYA Primary Care Provider [phone] MEG DRAPER Hematology/Oncology [phone] REY BRISENO Post Tronic Machine Operator [phone] HARLEY LUCIO Nutrition Professor TUAN MCGOVERN General Surgeon Assessment Encounter Date Assessment Date Assessment LastModified by Organization Details LastModified Time 05/14/2025 05/14/2025 01/12/2023: Folate/B12/A1C/TSH /FT4/Lipids/VIT D:WNL MCV 98.6H Gluc [...] 5.4 Gluc 112 LDL 104 MCV 98.6 05/13/2025: A1C 5.6 Gluc 106 HGB 13.1 45 minutes spent with him and his from 9.15am till 10.00am, reviewed various consult notes, and his labs, and also referral provided cam Not available 05/14/2025 14:02:33 06/16/2025 06/16/2025 Assessment: Mild OSAHS, 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 Average apnea/hypopnea index (AHI) is 1.7. Patient used PAP > 4 hours 100% of the time. PAP is set at 7-9 cmH2O. PAP will be reset at 8-9 cmH2O. Turn ramp off. Keep EPR off. [...] carrier. Patient will setup an appointment with [facility] for supplies and pressure adjustments. A major [...] for further management. Follow-up: 1 year, May 2026 [email or web address] Not available 06/16/2025 08:46:02 08/18/2025 08/18/2025 01/12/2023: Folate/B12/A1C/TSH /FT4/Lipids/VIT D:WNL MCV 98.6H Gluc [...] 5.4 Gluc 112 LDL 104 MCV 98.6 05/13/2025: A1C 5.6 Gluc 106 HGB 13.1 08/15/2025: A1C 5.3 Gluc 112 MCV 101.4 LDL 107 45 minutes spent with him and his from 10.00am till 10.45am [email or web address] Not available 08/19/2025 15:43:20 Plan of Treatment Reminders Order Date Submit Date Provider Last Modified By Organization Details Last Modified Time Details Appointments Any 2025 08:45A Blank ashford MD Not available Not available Not available Any 2025 07:30A Blank Lucio MD Not available Not available Not available Lab glycohemo globin, total, blood [address] (Lab), [address] [place], [address], 08/18/2025 11:49:59 microalbu min, urine [address] (Lab), [address] [place], [address], 08/18/2025 11:49:59 vitamin D, 25-hydrox y, total, serum [address] (Lab), [address] [place], [address], 08/18/2025 11:49:57 lipid panel, serum [address] (Lab), [address] [place], [address], 08/18/2025 11:49:57 CMP, serum or plasma [address] (Lab), [address] [place], [address], 08/18/2025 11:49:58 CBC w/ auto diff [address] (Lab), [address] [place], [address], 08/18/2025 11:49:58 TSH, serum or plasma [address] (Lab), [address] [place], [address], 08/18/2025 11:49:58 glycohemo globin, total, blood 2024 025 [facility] (Lab), [address] [place], [address], 08/15/2025 20:55:08 microalbu min, urine [address] (Lab), [address] [place], [address], 05/21/2025 09:06:30 vitamin D, 25-hydrox y, total, serum [address] (Lab), [address] [place], [address], 05/21/2025 09:06:30 lipid panel, serum 2024 025 [facility] (Lab), [address] [place], [address], 08/15/2025 16:18:55 CMP, serum or plasma 2024 025 [facility] (Lab), [address] [place], [address], 08/15/2025 16:18:52 CBC w/ auto diff 2024 025 [facility] (Lab), [address] [place], [address], 08/15/2025 16:08:48 TSH, serum or plasma 2024 025 [facility] (Lab), [address] [place], [address], 08/15/2025 16:46:[address] referral - Please call patient to schedule an appointme nt. Thank you. 2024 025 [facility] Audiology, [address] [facility], [place], [address], 08/25/2025 17:45:21 hand surgeon referral - Please call patient to schedule an appointme nt. Thank you. 2024 025 MILADIS Webb MD, [address], [address], [place], [address], 08/25/2025 17:30:51 cardiolog ist referral - Please call patient to schedule an appointme nt. Thank you. 2024 025 [place], [address] [facility], [place], [address], 08/13/2025 08:46:[address] referral - Please call patient to schedule an appointme nt. Thank you. 2024 025 [facility] Audiology, [address] [facility], [address], [place], [address], 08/13/2025 08:46:39 hand surgeon referral - Please call patient to schedule an appointme nt. Thank you. 2024 025 daren Webb MD, [address], [address], [place], [address], 08/13/2025 08:46:39 Procedures None recorded. Surgeries None recorded. Imaging None recorded. Medication Orders None recorded. Patient TargetsNo targets recorded. Patient InstructionsNo instructions recorded. Reason for Referral Post Tronic Machine Operator Referral for Ca rdiac arrhythmia Please call patient to schedule an appointment. Thank you. Referring Physician: Nithin Raya, Internal Medicine, Encounter Date: 05/14/2025 Operations Administrator Referral for Kiran ateral hearing loss Please call patient to schedule an appointment. Thank you. Referring Physician: Nithin Raya Internal Medicine, Encounter Date: 05/14/2025 Hand Surgeon Referral for Pa in of bilateral hands Please call patient to schedule an appointment. Thank you. Referring Physician: Nithin Raya Internal Medicine, Encounter Date: 05/14/2025 Operations Administrator Referral for Kiran ateral hearing loss Please call patient to schedule an appointment. Thank you. Referring Physician: Nithin Raya Internal Medicine, Encounter Date: 08/18/2025 Hand Surgeon Referral for Pa in of bilateral hands Please call patient to schedule an appointment. Thank you. Referring Physician: Nithin Raya Internal Medicine, Encounter Date: 08/18/2025 Results Created Date Observation Date Name Description Value Unit Range Abnormal Flag Note LastModifiedBy Organization Detail LastModifiedTime 04/17/2004/17/2025 imagi ng/di agnos tic resul t No observ ation record ed. [facility] [address], [place], [address], 04/17/2025 09:43:41 09/02/2009/02/2025 imagi ng/di agnos tic resul t No observ ation record ed. [facility] [employer] [address], [place], [address], 09/02/2025 12:50:48 Result Notes None recorded. Problems Name Problem SNOMED Code Status Onset Date Resolution Date Notes Provider Name and Address Organization Details Recorded Time Hyperlipide max 85275772 Active 2021 Nithin ashford MD [address], [address], [place], [address], [employer] 17:42:34 Gastroesoph ageal reflux disease without esophagitis 594203658 Active 2022 Nithin ashford MD [address], [address], [place], [address], [employer] 17:42:35 Vitamin D deficiency 57901739 Active 2022 Nithin ashford MD [address], [address], [place], [address], [employer] 17:42:35 Essential hypertensio n 30236483 Active 2022 Nithin ashford MD [address], [address], [place], [address], [employer] 17:42:36 Malignant neoplasm of prostate 462459658 Active 2022 Nithin ashford MD [address], [address], [place], [address], [employer] 10:51:51 Primary erectile dysfunction 978245117 Active 2022 Nithin ashford MD [address], [address], [place], [address], [employer] 17:42:37 Pulmonary embolism 11868112 Active 2022 Nithin ashford MD [address], [address], [place], [address], [employer] [facility] 17:42:36 Glaucoma 06627738 Active 2022 Nithin ashford MD [address], [address], [place], [address], [employer] [place] [facility] 17:42:36 Malignant neoplasm of lung 008354445 Active 2022 Nithin ashford MD [address], [address], [place], [address], [employer] [place] [facility] [place] [facility] 10:51:51 Actinic keratosis 848440638 Active 2023 Harley Lucio MD [address], [address], [place], [address], [employer] [place] [facility] 15:28:51 Periodic limb movement disorder 312831510 Active 2023 Harley Lucio MD [address], [address], [place], [address], [employer] [place] [facility] 15:29:30 Obstructive sleep apnea syndrome 42514106 Active 2023 Harley Lucio MD [address], [address], [place], [address], [employer] [place] [facility] 15:29:26 Bilateral hearing loss 68662329 Active 2023 Nithin ashford MD [address], [address], [place], [address], [employer] [place] [facility] 17:42:37 Cardiac arrhythmia 818246544 Active 2024 Nithin ashford MD [address], [address], [place], [address], [employer] [place] [facility] 11:41:06 Liver enzymes level above reference range 471082243 Active 2024 Nithin ashford MD [address], [address], [place], [address], [employer] [place] [facility] [place] [facility] 10:50:30 Hyperglycem ia 34647749 Active 2024 Nithin ashford MD [address], [address], [place], [address], [employer] 5 11:46:06 Skin lesion 12167479 Active 2024 Nithin ashford MD [address], [address], [place], [address], [employer] 5 10:50:30 Pain of bilateral hands 6172570522516 9109 Active 2024 Nithin ashford MD [address], [address], [place], [address], [employer] 5 17:42:37 Anemia 366715678 Active 2024 Nithin ashford MD [address], [address], [place], [address], [employer] 5 10:31:13 Notes:Medical History: Bilat eral hearing loss/tinnitus Glaucoma Obesity with mild OSAHS, AHI = 11, 02/18/22, on CPAP c/o IVRC Hyperlipidemia Hypertension EF 55% 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 Procedures Surgical History Date Name Laterality Status Provider Name and Address Organization Details Recorded Time 03/06/20 24 Medicare Wellness CPT Code, subsequent completed Rickie Dasilva LPN [employer] 03/06/2024 12:00:59 04/04/20 22 other completed Not Available [facility] 3 04:24:42 04/16/20 21 wedge excision of lung completed Not Available [facility] 01/18/2023 04:24:42 10/20/20 19 cardiac pacemaker procedure completed Not Available [facility] 01/18/2023 04:24:42 06/18/20 18 Colonoscopy completed Not Available [facility] 01/19/20 23 04:24:42 04/20/20 09 Pacemaker completed Not Available [facility] 3 04:24:42 04/20/20 08 Prostatectomy completed Not Available [facility] 2022 04:24:42 Cataract Surgery completed [facility]I [place] [facility] 11/06/2023 09:15:43 Imaging Results None recorded. Procedure Notes None recorded. Medical Equipment None Reported. Allergies No known drug allergies Medications Name Sig Start Date Stop Date Status Note LastModified by Organization Details LastModified Time losartan 50 mg tablet 04/08 completed Now on lisinopr il Dr Vin butterfield o03/22/19 Not Available Not Available Not Available [...] 100 mg tablet TK 1T PO QD 09/13 completed Not Available Not Available Not [...] propionat e 50 mcg/actua tion nasal spray,chad pension SHAKE LQ AND U 1 SPR IEN QD [...] bid 07/[address] Vin butterfield 11/29/19 20 Not Available Not Available Not Available leuprolid [...] Available hydrochlo rothiazid e 12.5 mg tablet TAKE 1 TABLET BY MOUTH DAILY active Not Available Not Available No t Available Prevnar 13 (PF) 0.5 mL intramusc ular syringe 05/30 completed Not Available Not Available Not Available B12 07/13 completed 1000mg Not Available Not Available Not Available Suprep Bowel Prep Kit 17.5 gram-3.13 gram-1.6 gram oral solution 06/27 completed Not Available Not Available Not Available Pradaxa 11/[address] Vin butterfeild is to get ablation 10/10/19 Not Available Not Available Not Available Xarelto 20 mg tablet active Not Available Not Available Not Available magnesium 400 mg (as magnesium oxide) capsule Take by oral route. active Not Available Not Available No t Available Xarelto DVT-PE Treatment 30-Day Starter 15 mg(42)-20 mg(9) tablet pack Take 1 startr pk every day by oral route as directed . 11/25 completed Not Available Not Available Not Available Fluzone High-Dose 1408-1460 (PF) 180 mcg/0.5 mL intramusc ular syringe [...] weight Body temperature Heart rate Oxygen saturation Pain severity - 0-10 verbal numeric rating [Score] - Reported Systolic And Diastolic Provider Name and Address Organization Details Last Updated DateTime 5 172.72 cm 29 kg/m2 71133.1 4 g 97.2 [degF] 70 /min 98 % 0 120/74 mm[Hg] Roxana Tavarez MA [facility] [employer] [facility] 5 10:14:37 Date Recorded Heart rate Respiratory rate Provider N tamela and Address Organization Details Last Updated DateTime 06/16/2025 71 /min 15 /min Harley Lucio MD [address] [facility] [facility] [address], [place], [address], [facility] [employer] [facility] 06/16/2025 08:47:35 Date Recorded Body height Body mass index (BMI) Body weight Body temperature Heart rate Oxygen saturation Systolic And Diastolic Provider Name and Address Organization Details Last Updated DateTime 172.72 cm 29.6 kg/m2 07782.5 1 g 98.1 [degF] 71 /min 98 % 120/76 mm[Hg] Reta Nguyen MA [facility] [employer] [facility] 08:41:06 Date Recorded Body height Body mass index (BMI) Body weight Body temperature Pain severity - 0-10 verbal numeric rating [Score] - Reported Heart rate Oxygen saturation Systolic And Diastolic Provider Name and Address Organization Details Last Updated DateTime 172.72 cm 29.3 kg/m2 77146.3 3 g 97.2 [degF] 0 70 /min 99 % 124/78 mm[Hg] Roxana Tavarez MA [facility] [employer] [facility] 10:41:32 Social History Question Answer Notes LastModified by Organization Details LastModified Time Tobacco Smoking Status Never Smoker Not Available [facility] 01/18/2023 04:11:14 Do You Have An Advance Directive? No Information Provided Previously MIGRATION.0301 [id number] Information not available 01/18/2023 Are You Blind Or Do You Have Difficulty Seeing? No MIGRATION.0301 [id number] Information not available 01/18/2023 What Is Your Level Of Caffeine Consumption? Occasional MIGRATION.0301 [id number] Information not available 01/18/2023 How Much Tobacco Do You Chew? None MIGRATION.030 [id number] Information not available 01/18/2023 In The 14 Days Before Symptom Onset, Have You Had Close Contact With A Laboratory-conf aliciarizwan KERRIEID-19 While That Case Was Ill? No MIGRATION.030 [id number] Information not available 01/18/2023 In The 14 Days Before Symptom Onset, Have You Had Close Contact With A Person Who Is Under Investigation For COVID-19 While That Person Was Ill? No MIGRATION.0301 [id number] Information not available 01/18/2023 Are You Deaf Or Do You Have Serious Difficulty Hearing? No Has Tinnitus MIGRATION.030 963974 Information not available 01/18/2023 What Type Of Diet Are You Following? REGULAR MIGRATION.030 [id number] Information not available 01/18/2023 Which Illicit Or Recreational Drugs Have You Used? None MIGRATION.030 097008 Information not available 01/18/2023 What Is The Highest Grade Or Level Of School You Have Completed Or The Highest Degree You Have Received? [id number] Information not available 07/17/2023 Do You Have An Electrostatic Air Filter? No Information not available 06/16/2025 Have There Been Any Changes To Your Family Or Social Situation? No MIGRATION.0301 052010 Information not available 01/18/2023 What Is The Fluoride Status Of Your Home? Unknown MIGRATION.0301 552002 Information not available 01/18/2023 Are There Any Guns Present In Your Home? Yes MIGRATION.0301 [id number] Information not available 01/18/2023 Do You Have A Humidifier? No Information not available 06/16/2025 Do You Use Insect Repellent Routinely? No MIGRATION.0301 [id number] Information not available 01/18/2023 [facility] MIG[facility].030 285724 Information not available 01/18/2023 Guns Present In The Home? Yes [email or web address] Information not available 03/06/2024 Are You Able To Care For Yourself? Yes Information not available 03/06/2024 Are You Blind Or Do Yo Have Difficulty Seeing? No [email or web address] Information not available 03/06/2024 Are You Deaf Or Do You Have Serious Difficulty Hearing? No [email or web address] Information not available 03/06/2024 General Stress Level? Low [email or web address] Information not available 03/06/2024 Live Alone Of With Others? With Others [email or web address] Information not available 03/06/2024 Do You Have A Medical Power Of Child Day Care Teacher? No MIGRATION.0301 [id number] Information not available 01/18/2023 Do You Have Moisture Problems In Your Home? No Information not available 06/16/2025 What Was The Date Of Your Most Recent Tobacco Screening? 08/18/2025 [email or web address] Information not available 08/18/2025 Do You Have Any Pets? No MIGRATION.0301 [id number] Information not available 01/18/2023 What Is Your Relationship Status? MIGRATION.0301 [id number] Information not available 01/18/2023 Do You Use Your Seat Belt Or Car Seat Routinely? Yes MIGRATION.0301 393417 Information not available 01/18/2023 Do You Have Smoke And Carbon Monoxide Detectors In Your Home? Yes MIGRATION.0301 372235 Information not available 01/18/2023 Are You Passively Exposed To Smoke? No MIGRATION.0301 370855 Information not available 01/18/2023 Are There Any Smokers In Your House? No MIGRATION.0301 294980 Information not available 01/18/2023 How Much Tobacco Do You Smoke? No MIGRATION.0301 211475 Information not available 01/18/2023 Do You Use Sunscreen Routinely? Yes MIGRATION.0301 [id number] Information not available 01/18/2023 Has Tobacco Cessation Counseling Been Provided? No N/a Information not available 07/17/2023 How Many Years Have You Smoked Tobacco? 0 MIGRATION.0301 484400 Information not available 01/18/2023 Have You Recently Traveled Abroad? No MIGRATION.0301 260524 Information not available 01/18/2023 Do You Have Difficulty Walking Or Climbing Stairs? No MIGRATION.0301 [id number] Information not available 01/18/2023 Do You Have Any Dietary Restrictions? No MIGRATION.0301 863170 Information not available 01/18/2023 Sex: Male Functional Status Question Answer Note LastModified by Organizat ion Details LastModified Time Do you use any illicit or recreational drugs? No [email or web address] Information not available 03/06/2024 Do you or have you ever used any other forms of tobacco or nicotine? No Information not available 07/17/2023 What is your level of alcohol consumption? None MIGRATION.995267 4072 Information not available 01/18/2023 Are you currently employed? No Information not available 07/17/2023 Have you been exposed to chemicals or toxins? not that aware of Information not available 06/16/2025 Do you have transportation difficulties? No MIGRATION.164117 9897 Information not available 01/18/2023 Are you able to walk independently without assistance or assistive devices? YESWOREST MIGRATION.768429 5610 Information not available 01/18/2023 Do you have difficulty doing errands alone? No MIGRATION.120499 5900 Information not available 01/18/2023 Are you able to care for yourself independently? Yes MIGRATION.146624 6658 Information not available 01/18/2023 What is your occupation? retired MIGRATION.309610 0728 Information not available 01/18/2023 Do you have difficulty dressing, bathing, grooming, or toileting? No MIGRATION.161949 1504 Information not available 01/18/2023 What is your exercise level? Occasional MIGRATION.220505 3519 Information not available 01/18/2023 Mental Status Question Answer Note LastModified by Organizat ion Details LastModified Time Do you feel stressed (tense, restless, nervous, or anxious, or unable to sleep at night)? [id number] MIGRATION.[id number] 26 Information not available 01/18/2023 Do you have difficulty concentrating, remembering or making decisions? No MIGRATION.[id number] 26 Information not available 01/18/2023 Family History Relationship Description Onset Age of this Age Resolved Age Notes LastModified by Organization Details LastModified Time Father Hypertensive disorder MIGRATION.695 [id number] Not available 01/18/2023 04:24:43 Father Cerebrovascu lar accident [email or web address] Not available 12/2023 10:49:52 Mother Hypertensive disorder MIGRATION.767 [id number] Not available 01/18/2023 04:24:43 Mother Cerebrovascu lar accident [email or web address] Not available 12/2023 10:49:52 Sister Hypertensive disorder MIGRATION.319 [id number] Not available 01/18/2023 04:24:44 Sister Myocardial infarction MIGRATION.636 [id number] Not available 01/18/2023 04:24:44 Sister Malignant neoplastic disease [email or web address] Not available 2023 10:49:52 Brother Kidney disease [email or web address] Not available 2023 12:24:54 Medical History Condition Response NERVE DISEASE N BLINDNESS N RHEUMATIC FEVER N KIDNEY STONES N BLADDER PROBLEMS N MRSA N OTHER # 1 N POLIO N LUNG DISEASE/DISORDER N RADIATION / CHEMOTHERAPY Y COPD N Other # 2 N BLOOD DISEASES N EAR OR HEARING PROBLEMS N MUMPS N BOWEL PROBLEMS N DEPRESSION (INCLUDING POST ) N STROKE/TIA N ULCERS N BENIGN PROSTATIC HYPERPLASIA N MEASLES N MYOCARDIAL INFARCTION N OBESITY N GERD/NAUSEA Y ANEURYSM N URINARY/BLADDER/KIDNEY PROBLEMS N CORONARY ARTERY DISEASE (CAD) N Do you have Advance directive? N ADDICTION CONCERNS N Impotence N ENDOMETRIOSIS N USE OF BLOOD THINNERS N SKIN [...] GLAUCOMA N FOOT PROBLEM N DIVERTICULITIS N SLEEP APNEA N CHICKENPOX N INFECTIOUS DISEASE N PROSTATE Y HEART ARRHYTHMIA N INSOMNIA N HIGH CHOLESTEROL / HYPERLIPIDEMIA Y EYE PROBLEMS N EDEMA Y CHRONIC PAIN SYNDROME N CONSTIPATION N CAROTID BLOCKAGE N BACK / NECK PROBLEMS N ATHEROSCLEROSIS N BREAST PROBLEMS N DIALYSIS N ECZEMA N OSTEOPOROSIS N ARTHRITIS N Do you have a healthcare POA? N APPENDICITIS N DIABETES, TYPE N BAD TEETH N ENT N HEARTBURN / REFLUX N AFIB N AUTISM SPECTRUM DISORDER (ASD) N HEPATITIS / LIVER DISEASE N GOUT N SLEEP DISORDER N ALZHEIMER'S DISEASE N Brain Problems N DEMENTIA N HERPES N SEIZURES/EPILEPSY N HEADACHES/MIGRAINES N VASCULAR DISEASE N PACEMAKER Y Blood Disorder N DIZZINESS N HEART DISEASE/HEART PROBLEMS N KIDNEY DISEASE N MULTIPLE SCLEROSIS N CANCER: SPECIFY Y CARDIAC ARRHYTHMIA N ATRIAL FIBRILLATION N Gall Stones N PULMONARY EMBOLISM Y AUTOIMMUNE DISEASE N Immunizations Vaccine Type Date Status Note Provider Nam e and Address Organization Details Recorded Time Influenza, adjuvanted, trivalent, PF 8 completed EMILI Mcneil [facility] [employer] [facility] [employer] 11/06/2024 09:21:27 Influenza, adjuvanted, trivalent, PF 9 completed EMILI Mcneil [employer] [facility] 11/06/2024 09:21:27 zoster recombinant 8 completed Mellissa Glady, RMA null, [facility] 11/06/2024 09:21:27 Influenza, adjuvanted, quadrivalent, PF 1 completed Mellissa Uriel, RMA null, [facility] 11/06/2024 09:21:27 COVID-19, mRNA, LNP-S, PF, 100 mcg/0.5mL dose or 50 mcg/0.25mL dose 1 completed Mellissa Glady, RMA null, [facility] 11/06/2024 09:21:27 COVID-19, mRNA, LNP-S, PF, 100 mcg/0.5mL dose or 50 mcg/0.25mL dose 1 completed Mellissa Dossham, RMA null, [facility] 11/06/2024 09:21:27 COVID-19, mRNA, LNP-S, PF, 100 mcg/0.5mL dose or 50 mcg/0.25mL dose 2 completed Mellissa Trevino RMA null, [facility] 11/06/2024 09:21:27 Pneumococcal conjugate PCV 13 5 completed Mellissa Trevino RMA null, [facility] 11/06/2024 09:21:27 Pneumococcal conjugate PCV 13 7 completed Mellissa Trevino RMA null, [facility] 11/06/2024 09:21:27 Influenza, high-dose, trivalent, PF 6 completed Mellissa Trevino RMA null, [facility] 11/06/2024 09:21:27 Influenza, high-dose, trivalent, PF 7 completed Mellissa Trevino RMA null, [facility] 11/06/2024 09:21:27 Influenza, split virus, quadrivalent, PF 0 completed Mellissa Trevino RMA null, [facility] 11/06/2024 09:21:27 zoster recombinant 4 completed EMILI Mcneil, [facility] 11/06/2024 09:21:43 RSV, recombinant, protein subunit RSVpreF, adjuvant reconstituted, 0.5 mL, PF 3 completed Mellissa Trevino RMRadha hammond, [facility] 11/06/2024 09:21:44 COVID-19, mRNA, LNP-S, PF, 50 mcg/0.5 mL 3 completed EMILI Mcneil, [facility] 11/06/2024 09:21:44 influenza, unspecified formulation 9 completed EMILI Mcneil, [facility] 11/06/2024 09:21:44 zoster recombinant 4 completed Not Available [facility] 08/18/2025 10:36:22 Influenza, high-dose, trivalent, PF 4 completed Not Available [facility] 08/18/2025 10:36:22 COVID-19, mRNA, LNP-S, PF, 50 mcg/0.5 mL 4 completed Not Available [facility] 08/18/2025 10:36:22 Influenza, high-dose, trivalent, PF 5 completed Not Available [facility] 08/18/2025 10:36:22 COVID-19, mRNA, LNP-S, PF, belem-sucrose, 30 mcg/0.3 mL 5 completed Not Available [facility] 08/18/2025 10:36:22 COVID-19, mRNA, LNP-S, bivalent, PF, 50 mcg/0.5 mL or 25mcg/0.25 mL dose 2 completed EMILI Mcneil, [facility] 11/06/2024 09:21:27 COVID-19, mRNA, LNP-S, PF, 100 mcg/0.5mL dose or 50 mcg/0.25mL dose 1 completed Mellissa Trevino RMA manish, [facility] 11/06/2024 09:21:27 Influenza, split virus, quadrivalent, preservative 1 completed Mellissa Trevino RMA null, [facility] 11/06/2024 09:21:27 SARS-COV-2 (COVID-19) vaccine, UNSPECIFIED 1 completed Not Available [facility] 01/18/2023 04:35:38 SARS-COV-2 (COVID-19) vaccine, UNSPECIFIED 1 completed Mellissa Trevino RMA null, [facility] 11/06/2024 09:21:27 Influenza, high-dose, quadrivalent, PF 9 completed Mellissa Trevino RMA null, [facility] 11/06/2024 09:21:43 Influenza, high-dose, trivalent, PF 0 completed Mellissa Trevino RMA null, [facility] 11/06/2024 09:21:27 pneumococcal polysaccharide PPV23 9 completed Mellissa Trevino RMA null, [facility] 11/06/2024 09:21:27 influenza, unspecified formulation 8 completed Mellissa Trevino RMA null, [facility] 11/06/2024 09:21:27 Pneumococcal conjugate PCV 13 8 completed Mellissa Trevino RMA null, [facility] 11/06/2024 09:21:27 Tdap 8 completed Mellissa Trevino RMA null, [facility] 11/06/2024 09:21:27 influenza, unspecified formulation 7 completed Mellissa Trevino RMA null, [facility] 11/06/2024 09:21:27 Pneumococcal conjugate PCV 13 7 completed Mellissa Tervino RMA null, [facility] 11/06/2024 09:21:27 Influenza, high-dose, quadrivalent, PF 2 completed Mellissa Trevino RMA null, [facility] 11/06/2024 09:21:27 Influenza, high-dose, quadrivalent, PF 3 completed Mellissa Trevino, EMILI null, [facility] 08/23/2023 10:00:05 Past Encounters Encounter ID Performer Location Encounter Start Date Encounter Closed Date Diagnosis/Indication Diagnosis SNOMED-CT Code Diagnosis ICD10 Code Diagnosis IMO Codes Diagnosis Note [id number] MD IKER Pond_[facility] Internal Med Farhat claros [address] [place] [address] [place] [address] 03/15/2021 00:00:00 03/15/2021 09:53:57 [id number] [facility] Farhat llaidan [address] [place] [address] [place] [address] 09/13/2021 00:00:00 09/13/2021 16:51:17 [id number] Nithin garcia MD [facility] Internal Med [facility] [address] [place] [address], [address] [address] 02/14/2022 00:00:00 05/16/2022 10:49:12 [id number] Tuan morfin MD [facility] General Surgery [address] [place] [address], [address] [address] 03/22/2022 00:00:00 03/22/2022 13:44:19 [id number] Tuan morfin MD [facility] General Surgery [address] [place] [address], [address] [address] 04/12/2022 00:00:00 04/12/2022 12:30:14 [id number] IKER Butt_[facility] Internal Med Farhat llaidan [address] [place] [address] [place] [address] 08/17/2022 00:00:00 08/17/2022 12:58:55 [id number] MD IKER Pond_[facility] Internal Med [place] [facility] [place] [address] 01/16/2023 00:00:00 01/16/2023 14:31:23 [id number] Nithin garcia MD [facility] Internal Med [place] [address] [facility] [place] [address] 07/17/2023 08:54:41 07/17/2023 09:31:40 Screening - NAD [id number] Z13.9 C-scope: 06/18/18 Dr Ortiz n, no more c-scope UTD flu shotUTD tdap 05/16/18UT D on shingles shot 06/27/18PC V 05/16/18 #13, UTD #23UTD on COVID 19 vaccine RTC in 4 monthGet labsER if worseHe and his is agreeable to this plan of care Hyperlipidemia 95089566 E78.5 On atorvastat in 40mg daily, decreased to 40mg daily 08/17/2022 Get labs Gastroesop hageal reflux disease without esophagitis 630187904 K21.9 On omeprazole Get EGD doneTake as needed Cardiac arrhythmia 79508 7007 I49.9 S/p pacemaker 11/01-10/20 04/07, admitted and 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, he did have a PM implanted by Dr Briseno on 10/11/19 US duplex 02/24/2023 : [facility] wellDr Briseno Liver enzy mes level above reference range 224604332 R74.01 11/09/2020 : Dr Colbert/Miguel Perez [employer]: get labs and f/u in 3 months 02/17/2021 : Dr Colbert/Miguel Perez: [facility]: F/u PRN, LFTs WNL on 11/06/2020 [facility] Vitamin D deficiency 347 [address]3331 E55.9 Hyperglycemia 14198832 R 73.9 Check A1CGet to diet and exercise Skin lesion 56940548 L98 .9 Lipoma like lesion noted in the mid chest below the sternum, non tenderSeen by Dr Seay Essential hypertension 03371162 I10 On amlodipine 10mg dailyOn HCTZ 12.5mg dailyOn lisinopril 40mg dailyOn metoprolol 50mg bid Does well nowGet labs Malignant neoplasm of prostate 142248226 C[address] Pina in [facility] Addendum 12/03/18:0 11/27/18: Dr Pina CT chest: [...] : Dr Draper Primary er ectile dysfunction 645548344 N52.9 On viagra He is on lupron given by Dr Pina urologyDoe s well Pulmonary embolism 05861 003 I26.99 On xareltoDoe s well Glaucoma 20626246 H40.9 On latanopros t Lanie RozellDr [place]ig[place] 06/29/2023 Malignant neoplasm of lung 186185574 C34.[address] Draper and [...] Chest/A/P 03/30/2023 : Dr Figueredo Than Than: Neg [id number] Nithin garcia MD [facility] Internal Med Farhat claros [address] [facility] [place] [address] 11/06/2023 09:11:18 11/06/2023 09:38:33 Screening - NAD [id number] Z13.9 C-scope: 06/18/18 Dr Ortiz n, no more c-scope UTD flu shotUTD tdap 05/16/18UT D on shingles shot 06/27/18PC V 05/16/18 #13, UTD #23UTD on COVID 19 vaccineGet RSV vaccine RTC in 4 monthGet labsER if worseHe and his is agreeable to this plan of care Hyperlipidemia 13119988 E78.5 On atorvastat in 80mg daily, decreased to 40mg daily 08/17/2022 , does not want to increase the dose 11/06/2023 , more diet and exercise is neededGet labs Gastroesop hageal reflux disease without esophagitis 137144398 K21.9 On omeprazole EGD 09/15/2023 Take as needed Cardiac arrhythmia 56556 7007 I49.9 S/p pacemaker 11/01-10/20 04/07, admitted and 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, he did have a PM implanted by Dr Briseno on 10/11/19 US duplex 02/24/2023 : [facility] Liver enzy mes level above reference range 537573003 R74.01 11/09/2020 : Dr Colbert/Miguel Perez [employer]: [facility]: get labs and f/u in 3 months 02/17/2021 : Dr Colbert/Migule Perez: [facility]: F/u PRN, LFTs WNL on 11/06/2020 Does wellLFTs WNL Vitamin D deficiency 347 83702 E55.9 Hyperglycemia 77319493 R 73.9 Check A1CGet to diet and exercise Skin lesion 01569801 L98 .9 Lipoma like lesion noted in the mid chest below the sternum, non tenderSeen by Dr Seay Essential hypertension 01476515 I10 On amlodipine 10mg dailyOn HCTZ 12.5mg dailyOn lisinopril 40mg dailyOn metoprolol 50mg bid Does well nowGet labs Malignant neoplasm of prostate 292406999 C[address] Pina in [facility] Addendum 12/03/18:0 11/27/18: Dr Pina CT chest: [...] 09/22/2023: Dr Draper Primary er ectile dysfunction 388437644 N52.9 On viagra He is on lupron given by Dr Pina urologyDoe s well Pulmonary embolism 55295 003 I26.99 On xareltoDoe s well Glaucoma 39500786 H40.9 On latanopros t Lanie RozellDr [place] 06/29/2023 Malignant neoplasm of lung 573252882 C34.[address] Draper and [...] Than: NegCT chest 10/02/2023 : Dr Draper [id number] Nithin garcia MD [facility] Internal Med [place] [address] [facility] [place] [address] 03/06/2024 09:59:14 03/06/2024 10:52:59 Screening - NAD [id number] Z13.9 C-scope: 06/18/18 Dr Ortiz n, no more c-scope UTD flu shotUTD tdap 05/16/18UT D on shingles shot 06/27/18PC V 05/16/18 #13, UTD #23UTD on COVID 19 vaccineGet RSV vaccine RTC in 4 monthGet labsER if worseHe and his is agreeable to this plan of care Hyperlipidemia 54421855 E78.5 On atorvastat in 40mg dailyGet labs Gastroesop hageal reflux disease without esophagitis 351600811 K21.9 On omeprazole EGD 09/15/2023 Take as needed Cardiac arrhythmia 14946 7007 I49.9 S/p pacemaker 11/01-10/20 04/07, admitted and 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, he did have a PM implanted by Dr Briseno on 10/11/19 US duplex 02/24/2023 : Dr Briseno [facility]es [facility] Liver enzy mes level above reference range 491634183 R74.01 11/09/2020 : Dr Colbert/Miguel Perez [employer]: [facility]: get labs and f/u in 3 months 02/17/2021 : Dr Colbert/Miguel Cantute: [facility]: F/u PRN, LFTs WNL on 11/06/2020 Does wellLFTs WNL Vitamin D deficiency 347 74172 E55.9 Hyperglycemia 90922972 R 73.9 Check A1CGet to diet and exercise Skin lesion 29776447 L98 .9 Lipoma like lesion noted in the mid chest below the sternum, non tenderSeen by Dr Seay OV 03/06/2024 :Small raised dark mole noted on the R lateral mid thighGet a referral to Dr Seay Essential hypertension 18974694 I10 On amlodipine 10mg dailyOn HCTZ 12.5mg dailyOn lisinopril 40mg dailyOn metoprolol 50mg bid Does well nowGet labs Malignant neoplasm of prostate 827196985 C[address] Pina in [facility] Addendum 12/03/18:0 11/27/18: Dr Pina CT chest: [...] with Dr Draper Primary er ectile dysfunction 557756128 N52.9 On viagra He is on lupron given by Dr Pina urologyDoe s well Pulmonary embolism 33963 003 I26.99 On xareltoDoe s well Glaucoma 90779484 H40.9 On latanopros t Lanie RozellDr [place] 06/29/2023 Malignant neoplasm of lung 745196854 C34.[address] Draper and [...] : Dr Draper Adult heal th examination 229257596 Z00.00 Screening for disorder 930653097 Z13.9 [id number] Tuan morfin MD [facility] [address] [place] [address] 03/21/2024 10:49:45 03/21/2024 11:38:20 Actinic keratosis 835217888 L57.0 Mid back and Right Thigh [id number] Harley Lucio MD [facility] [address] [address] 05/27/2024 11:21:26 05/28/2024 09:18:16 Periodic limb movement disorder 002112763 G47.61 D50.8 E83.42 Obstructiv e sleep apnea syndrome 88394337 G47.33 [id number] Harley Lucio MD [facility] Pulmon[address] [address] 06/18/2024 08:23:29 06/18/2024 16:28:44 Obstructive sleep apnea syndrome 16996266 G47.33 Periodic l imb movement disorder 706836611 G47.61 [id number] Nithin garcia MD [facility] Internal Med [place] claros [address] [place] [address] , [place] [address] 07/15/2024 09:34:58 07/15/2024 10:33:22 Screening - NAD 891344734 Z13.9 C-scope: 06/18/18 Dr Ortiz n, no more c-scope UTD flu shotUTD tdap 05/16/18UT D on shingles shot 06/27/18PC V 05/16/18 #13, UTD #23UTD on COVID 19 vaccineGet RSV vaccine RTC in 4 monthGet labsER if worseHe and his is agreeable to this plan of care Hyperlipidemia 43557102 E78.5 On atorvastat in 40mg dailyGet labs Gastroesop hageal reflux disease without esophagitis 726704022 K21.9 On omeprazole EGD 09/15/2023 Take as needed Cardiac arrhythmia 52945 7007 I49.9 S/p pacemaker 11/01-10/20 04/07, admitted and 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, he did have a PM implanted by Dr Briseno on 10/11/19 US duplex 02/24/2023 : Dr Briseno Sees [facility] well[facility] Liver enzy mes level above reference range 778834330 R74.01 11/09/2020 : Dr Colbert/Miguel Perez [employer]: [facility]: get labs and f/u in 3 months 02/17/2021 : Dr Colbert/Miguel Perez: [facility]: F/u PRN, LFTs WNL on 11/06/2020 Does well Vitamin D deficiency 347 75896 E55.9 Hyperglycemia 47244079 R 73.9 Check A1CGet to diet and exercise Skin lesion 89134191 L98 .9 Lipoma like lesion noted in the mid chest below the sternum, non tenderSeen by Dr Seay OV 03/06/2024 :Small raised dark mole noted on the R lateral mid thighGet a referral to Dr Geena Seay 03/21/2024 Essential hypertension 38854261 I10 On amlodipine 10mg dailyOn HCTZ 12.5mg dailyOn lisinopril 40mg dailyOn metoprolol 50mg bid Does well nowGet labs Malignant neoplasm of prostate 224160544 C[address] Pina in [facility] Addendum 12/03/18:0 11/27/18: Dr Pina CT chest: [...] Sees Dr Draper Primary er ectile dysfunction 808940262 N52.9 On viagra He is on lupron given by Dr Pina urologyDoe s well Pulmonary embolism 48555 003 I26.99 On xareltoDoe s well Glaucoma 87687942 H40.9 On latanopros t Lanie RozellDr [place]ig[place] 06/29/2023 Malignant neoplasm of lung 507926731 C34.[address] Draper and Dr Pina He is doing well CT chest 03/08/2021 : Increase in size of spiculated cavitary lesion RUL nodule, remaining conspicuou s for primary lung malignancy OV 02/14/2022 :S/p RUL wedge resection 03/[address] T[address] surgeon, last OV 11/04/2021 , next in 6 months OV 08/17/2022 :Seescout Landrum CT surgeon CT Chest/A/P 03/30/2023 : [...] 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[employer], 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 that needs to be sent for the medical necessity, this was reviewed today Bilateral hearing loss 67804676 H91.93 [id number] Nithin garcia MD [facility] [address] [place] [address] 11/06/2024 09:20:15 11/06/2024 09:55:39 Screening - NAD [id number] Z13.9 C-scope: 06/18/18 Dr Ortiz n, no more c-scope UTD flu shotUTD tdap 05/16/18UT D on shingles shot 06/27/18PC V 05/16/18 #13, UTD #23UTD on COVID 19 vaccineGet RSV vaccine RTC in 4 monthGet labsER if worseHe and his is agreeable to this plan of care Hyperlipidemia 94146456 E78.5 On atorvastat in 40mg dailyGet labs Gastroesop hageal reflux disease without esophagitis 917190300 K21.9 On omeprazole EGD 09/15/2023 Take as needed Cardiac arrhythmia 71456 7007 I49.9 S/p pacemaker 11/01-10/20 04/07, admitted and 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, he did have a PM implanted by Dr Briseno on 10/11/19 US duplex 02/24/2023 : Dr Briseno Sees Mei Briseno Liver enzy mes level above reference range 995954561 R74.01 11/09/2020 : Dr Colbert/Miguel Perez [employer]: [facility]: get labs and f/u in 3 months 02/17/2021 : Dr Colbert/Miguel Layr Ana: [facility]: F/u PRN, LFTs WNL on 11/06/2020 Does well Vitamin D deficiency 347 03530 E55.9 Hyperglycemia 52769791 R 73.9 Check A1CGet to diet and exercise Skin lesion 78522004 L98 .9 Lipoma like lesion noted in the mid chest below the sternum, non tenderSeen by Dr Seay OV 03/06/2024 :Small raised dark mole noted on the R lateral mid thighGet a referral to Dr Geena Seay 03/21/2024 Essential hypertension 63249510 I10 On amlodipine 10mg dailyOn HCTZ 12.5mg dailyOn lisinopril 40mg dailyOn metoprolol 50mg bid Does well nowGet labs Malignant neoplasm of prostate 249396675 C[address] Pina in [facility] Addendum 12/03/18:0 11/27/18: Dr Pina CT chest: [...] XR chest OV 11/02/2020 :PSA WNLSees Dr Pnia, Dr Draper OV 03/15/2021 :Keep apts with [...] and Dr Pina Primary er ectile dysfunction 820544091 N52.9 On viagra He is on lupron given by Dr Pina urologyDoe s well Pulmonary embolism 28601 003 I26.99 On xareltoDoe s well Glaucoma 30013753 H40.9 On latanopros t Lanie RozellDr [place] 06/29/2023 Malignant neoplasm of lung 415581089 C34.[address] Draper and [...] 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[employer], 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 that needs to be sent for the medical necessity, this was reviewed today OV 11/06/2024 : Keep apts with Dr Draper last 10/10/2024 , next in 6 months Bilateral hearing loss 60763309 H91.93 [id number] Nithin garcia MD [facility] Internal Med [facility] [address] [facility], [facility] [address] [place] [address] 12/24/2024 12:02:31 12/24/2024 12:51:20 Screening - NAD 019158716 Z13.9 C-scope: 06/18/18 Dr Ortiz n, no more c-scope UTD flu shotUTD tdap 05/16/18UT D on shingles shot 06/27/18PC V 05/16/18 #13, UTD #23UTD on COVID 19 vaccineGet RSV vaccine RTC in 4 monthGet labsER if worseHe and his is agreeable to this plan of care Hyperlipidemia 15162513 E78.5 On atorvastat in 40mg dailyGet labs Gastroesop hageal reflux disease without esophagitis 369073539 K21.9 On omeprazole EGD 09/15/2023 Take as needed Cardiac arrhythmia 61341 7007 I49.9 S/p pacemaker 11/01-10/20 04/07, admitted and 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, he did have a PM implanted by Dr Briseno on 10/11/19 US duplex 02/24/2023 : Dr Briseno Sees Mei Briseno Liver enzy mes level above reference range 655073906 R74.01 11/09/2020 : Dr Colbert/Miguel Perez [employer]: [facility]: get labs and f/u in 3 months 02/17/2021 : Dr Colbert/Miguel Layr Ana: [facility]: F/u PRN, LFTs WNL on 11/06/2020 Does well Vitamin D deficiency 347 96268 E55.9 Hyperglycemia 50353034 R 73.9 Check A1CGet to diet and exercise Skin lesion 71307310 L98 .9 Lipoma like lesion noted in the mid chest below the sternum, non tenderSeen by Dr Seay OV 03/06/2024 :Small raised dark mole noted on the R lateral mid thighGet a referral to Dr Geena Seay 03/21/2024 Essential hypertension 90334532 I10 On amlodipine 10mg dailyOn HCTZ 12.5mg dailyOn lisinopril 40mg dailyOn metoprolol 50mg bid Does well nowGet labs Malignant neoplasm of prostate 023046570 C[address] Pina in [facility] Addendum 12/03/18:0 11/27/18: Dr Pina CT chest: [...] and Dr Pina Primary er ectile dysfunction 502400958 N52.9 On viagra He is on lupron given by Dr Pina urologyDoe s well Pulmonary embolism 01375 003 I26.99 On xareltoDoe s well Glaucoma 07840085 H40.9 On latanopros t Lanie RozellDr [place] 06/29/2023 Malignant neoplasm of lung 820566167 C34.[address] Draper and [...] 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[employer], 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 that needs to be sent for the medical necessity, this was reviewed today OV 11/06/2024 : Keep apts with Dr Draper last 10/10/2024 , next in 6 months Bilateral hearing loss 80537386 H91.93 [id number] Nithin garcia MD [facility] Primary Care [facility] [address] [facility] [address] [place] [address] 02/05/2025 10:01:32 02/05/2025 11:01:00 Screening - NAD 873690575 Z13.9 C-scope: 06/18/18 Dr Ortiz n, no more c-scope UTD flu shotUTD tdap 05/16/18UT D on shingles shot 06/27/18PC V 05/16/18 #13, UTD #23UTD on COVID 19 vaccineGet RSV vaccine RTC in 4 monthGet labsER if worseHe and his is agreeable to this plan of care Hyperlipidemia 67490534 E78.5 On atorvastat in 40mg daily, more diet and exercise is neededGet labs Gastroesop hageal reflux disease without esophagitis 773268765 K21.9 On omeprazole EGD 09/15/2023 Take as needed Cardiac arrhythmia 38143 7007 I49.9 S/p pacemaker 11/01-10/20 04/07, admitted and 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, he did have a PM implanted by Dr Briseno on 10/11/19 US duplex 02/24/2023 : Dr Briseno Sees Mei Briseno Liver enzy mes level above reference range 346702853 R74.01 11/09/2020 : Dr Colbert/Miguel Perez [employer]: [facility]: get labs and f/u in 3 months 02/17/2021 : Dr Colbert/Miguel Layr Ana: [facility]: F/u PRN, LFTs WNL on 11/06/2020 Does well Vitamin D deficiency 347 30436 E55.9 Hyperglycemia 76277474 R 73.9 Check A1CGet to diet and exercise Skin lesion 22648698 L98 .9 Lipoma like lesion noted in the mid chest below the sternum, non tenderSeen by Dr Seay OV 03/06/2024 :Small raised dark mole noted on the R lateral mid thighGet a referral to Dr Geena Seay 03/21/2024 Essential hypertension 26581558 I10 On amlodipine 10mg dailyOn HCTZ 12.5mg dailyOn lisinopril 40mg dailyOn metoprolol 50mg bid Does well nowGet labs Malignant neoplasm of prostate 501169443 C[address] Pina in [facility] Addendum 12/03/18:0 11/27/18: Dr Pina CT chest: [...] oncologist and urologist Primary er ectile dysfunction 340303735 N52.9 On viagra He is on lupron given by Dr Pina urologyDoe s well Pulmonary embolism 32297 003 I26.99 On xareltoDoe s well Glaucoma 27563172 H40.9 On latanopros t Lanieradha Marinr [place] 06/29/2023 Malignant neoplasm of lung 066282263 C34.[address] Draper and [...] 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[employer], 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 that needs to be sent for the medical necessity, this was reviewed today OV 11/06/2024 : Keep apts with Dr Draper last 10/10/2024 , next in 6 months Bilateral hearing loss 56458894 H91.93 Pain of bi lateral hands 6408919380 3692339 M79.641 M79.858 [id number] Nithin garcia MD [facility] Primary Care [facility] [address] [place] [address] 05/13/2025 08:58:02 05/13/2025 09:18:16 [id number] Nithin garcia MD [facility] Primary Care [facility] [address] [place] [address] 05/14/2025 10:02:27 05/14/2025 11:07:26 Screening - NAD 063773787 Z13.9 C-scope: 06/18/18 Dr Ortiz n, no more c-scope UTD flu shotUTD tdap 05/16/18UT D on shingles shot 06/27/18PC V 05/16/18 #13, UTD #23UTD on COVID 19 vaccineGet RSV vaccine RTC in 4 monthGet labsER if worseHe and his is agreeable to this plan of care Hyperlipidemia 60546932 E78.5 On atorvastat in 40mg daily, more diet and exercise is neededGet labs Gastroesop hageal reflux disease without esophagitis 125764763 K21.9 On omeprazole EGD 09/15/2023 Take as needed Cardiac arrhythmia 75159 7007 I49.9 S/p pacemaker 11/01-10/20 04/07, admitted and 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, he did have a PM implanted by Dr Briseno on 10/11/19 US duplex 02/24/2023 : [facility] referred 05/14/2025 Liver enzy mes level above reference range 564815394 R74.01 11/09/2020 : Dr Colbert/Miguel Perez [employer] [employer]: get labs and f/u in 3 months 02/17/2021 : Dr Colbert/Miguel Perez: [facility]: F/u PRN, LFTs WNL on 11/06/2020 Does well Vitamin D deficiency 347 07267 E55.9 Hyperglycemia 91793697 R 73.9 Check A1CGet to diet and exercise Skin lesion 37248781 L98 .9 Lipoma like lesion noted in the mid chest below the sternum, non tenderSeen by Dr Seay OV 03/06/2024 :Small raised dark mole noted on the R lateral mid thighGet a referral to Dr Geena Seay 03/21/2024 Essential hypertension 52039623 I10 On amlodipine 10mg dailyOn HCTZ 12.5mg dailyOn lisinopril 40mg dailyOn metoprolol 50mg bid Does well nowGet labs Malignant neoplasm of prostate 511055952 C61 [address] Pina in [facility] Addendum 12/03/18:0 11/27/18: Dr Pina CT chest: [...] Keep apt with his oncologist and urologist OV 05/14/2025 :CT chest 04/17/2025 : Dr Denzel Cotton 04/24/2025 , f/u in 6 months Primary er ectile dysfunction 753755650 N52.9 On viagra He is on lupron given by Dr Pina urologyDoe s well Malena Burns [facility] [employer] [facility] 12/11/2024 , got triptoreli n and f/u in 6 months with a bone scan, as per him he is not taking the lupron Pulmonary embolism 54431 003 I26.99 On xareltoDoe s well Glaucoma 50823089 H40.9 On latanopros t Lanie Amarokylahon 06/29/2023 Malignant neoplasm of lung 889015057 C34.[address] Draper and [...] 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[employer], 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 that needs to be sent for the medical necessity, this was reviewed today OV 11/06/2024 : Keep apts with Dr Draper last 10/10/2024 , next in 6 months OV 05/14/2025 : Keep apt with Dr Harper states that he has seen Dr Landrum the CT surgeon Bilateral hearing loss 87245219 H91.93 Pain of bi lateral hands [id number] 1302792 M79.[address] Webb 04/29/2025 Keep f/u apt Anemia 375673242 D64.9 9942201 Keep apt with hematology Dr Draper [id number] Harley Lucio MD [facility] Pulmonolo gy [address] [address] 06/16/2025 08:20:12 06/27/2025 13:21:16 Obstructive sleep apnea syndrome 89713704 G47.33 Periodic l imb movement disorder 823231934 G47.61 [id number] Nithin garcia MD [facility] Primary Care Taye claros [address] [address] [place] [address] 08/18/2025 10:33:37 08/18/2025 11:54:58 Screening - NAD 978558856 Z13.9 C-scope: 06/18/18 Dr Ortiz n, no more c-scopes UTD flu shotUTD tdap 05/16/18UT D on shingles shot 06/27/18PC V 05/16/18 #13, UTD #23UTD on COVID 19 vaccineGet RSV vaccine RTC in 4 monthGet labsER if worseHe and his is agreeable to this plan of care Hyperlipidemia 67436280 E78.5 On atorvastat in 40mg daily, more diet and exercise is neededGet labs Gastroesop hageal reflux disease without esophagitis 218731750 K21.9 On omeprazole EGD 09/15/2023 Take as needed Cardiac arrhythmia 04064 7007 I49.9 S/p pacemaker 11/01-10/20 04/07, admitted and 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, he did have a PM implanted by Dr Briseno on 10/11/19 US duplex 02/24/2023 : [facility] wellDr Br[facility]o 06/13/2025 Liver enzy mes level above reference range 810424824 R74.01 11/09/2020 : Dr Colbert/Miguel Perez [employer] [employer]: get labs and f/u in 3 months 02/17/2021 : Dr Colbert/Miguel Perez: [facility]: F/u PRN, LFTs WNL on 11/06/2020 Does well Vitamin D deficiency 347 75007 E55.9 Hyperglycemia 72224018 R 73.9 Check A1CGet to diet and exercise Sees his eye MD on 09/01/2025 [facility] Skin lesion 04509314 L98 .9 Lipoma like lesion noted in the mid chest below the sternum, non tenderSeen by Dr Seay OV 03/06/2024 :Small raised dark mole noted on the R lateral mid thighGet a referral to Dr Geena Seay 03/21/2024 Essential hypertension 11780743 I10 On amlodipine 10mg dailyOn HCTZ 12.5mg dailyOn lisinopril 40mg dailyOn metoprolol 50mg bid Does well nowGet labs Malignant neoplasm of prostate 471490733 C[address] Pina in [facility] Addendum 12/03/18:0 11/27/18: Dr Pina CT chest: [...] Keep apt with his oncologist and urologist OV 05/14/2025 :CT chest 04/17/2025 : Dr Denzel Cotton 04/24/2025 , f/u in 6 months OV 08/18/2025 : Keep apt with Dr Draper Primary er ectile dysfunction 151307018 N52.9 On viagra He is on lupron given by Dr Pina urologyDoe s well Malena Burns [employer] [facility] 12/11/2024 , got triptoreli n and f/u in 6 months with a bone scan, as per him he is not taking the lupron Pulmonary embolism 67993 003 I26.99 On xareltoDoe s well Glaucoma 76097654 H40.9 On latanopros t Lanie RozellDr Wigton 06/29/2023 Malignant neoplasm of lung 635450770 C34.[address] Draper and [...] 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[employer], 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 that needs to be sent for the medical necessity, this was reviewed today OV 11/06/2024 : Keep apts with Dr Draper last 10/10/2024 , next in 6 months OV 05/14/2025 : Keep apt with Dr Harper states that he has seen Dr Landrum the CT surgeon OV 08/18/2025 :See Dr Landrum and Dr Draper Bilateral hearing loss 57450470 H91.93 Pain of bi lateral hands 3561874974 4373064 M79.[address] Webb 04/29/2025 Keep f/u apt Anemia 267606764 D64.9 3443433 Keep apt with hematology Dr Draper [facility] Concerns Section Related Observation LastModified by Organization Detai ls LastModified Time None Recorded Concern Status LastModified by Organization Details LastModified Time None Recorded Advance Directives Directive N: information provided prev iously Payers Insurance Date Sequence Insurance Name Policy Number Policy Tan Covered Member ID Tan Member ID Guarantor Name 08/15/2025 1 [place] Roque Felix [id number] Jeanna Felix 08/20/2025 2 FOR LIFE ( - MEDICARE SUPPLEMENT) Jeanna Felix [id number] Jeanna Felix Notes Date Note Type Note Provider Name and Address Organization Details Recorded Time 05/14/2025 text/html Here to establish carePast Hx:HTNHLDGERDEDProstat e cancerCAD s/p pacemakerReviewed family and [...] has also had his CT chest in [facility] OV 09/13/2021:Here for his routine aptHe did [...] well today, 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 [employer] a agency that is to evaluate him every month thru the [employer] as he has been diagnosed with lung ca and prostate ca d/t him working for [employer]-IDHe has done the labs OV 11/06/2024: Here [...] doing well and is here with his OV 05/14/2025: Here for his f/u apt, he feels well today, he is here with his Nithin Raya MD [address] [place] [address], [place] [address], [place], [address], [facility] 05/14/2025 14:02:58 06/16/2025 text/html Primary care/Referring provider: Nithin Raya MD; Rey Briseno MD During the [facility] home sleep study on 02/18/22, AHI = 11.During the [facility] titration sleep study on 06/03/22, sleep onset [...] up without an alarm. Snoring: moderate, since 1980s.Snorting: noChoking: noCoughing: noGasping: noGagging: yesSighing: noWitnessed apnea: [...] AND CHANCE OF DOZINGSitting and reading - 2Watching television - 2Sitting inactive in a public place (e.g. a theater or meeting) - 0As a passenger in a car for an hour without a break - 0Lying down to rest in the afternoon when circumstances permit - 3Sitting and talking to someone - 0Sitting quietly after lunch without alcohol - 1In a car, while stopped for a few minutes in the traffic - 0TOTAL SCORE 8Subjectively, patient has a slight chance of dozing. 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
--- OUTSIDE RECORDS SUMMARY | 2025-10-22 10:25 | XMS_ITS | Encounter Summary ---
Author Organization [facility] Address [address] [place] [address] Phone Care Team Providers Care Nuclear Medicine Supervisor Name Role Phone Keri Raya MD Primary Care Provide r Girish Boykin MD Unavailable [phone] Devon Briseno MD Unavailable [phone] Encounter Details Date Type Department Care Team [...] on file Legal Sex Male 10:03 AM [employer] Gender Identity Not on file Sexual Orientation [...] on filedocumented in this encounter Care Teams Nuclear Medicine Supervisor Relationship Specialty Start Date End Date Keri Raya MD [address] [address] PCP - General Internal Medicine 05/21/18 Girish Boykin MD [address] [address] Consulting Physician Pulmonary Disease 11/03/19 05/27/25 Devon Briseno MD [address] [place] [address] [employer] Operator Cardiology 03/23/21 documented as of this encounter
--- OUTSIDE RECORDS SUMMARY | 2025-10-22 10:25 | XMS_ITS | Continuity of Care Document ---
Author Organization [place] [facility], [facility] [place] Address [address] [facility] [address] [place] [address] Care Team Providers Care Checker Cashier Name Role Phone NITHIN RAYA Primary Care Provider MEG DRAPER Hematology/Oncology REY BRISENO Political Scientist [phone] HARLEY LUCIO Business Unit Controller TUAN MCGOVERN General Surgeon Assessment Encounter Date Assessment Date Assessment LastModified by Organization Details LastModified Time 08/18/2025 08/18/2025 01/12/2023: Folate/B12/A1 C/TSH/FT4/Lip ids/VIT D:WNL MCV 98.6H Gluc 125< - A1C [...] him and his from 10.00am till 10.45am cam Not available 08/19/2025 15:43:20 Plan of Treatment Reminders Order Date Submit Date Provider Last Modified By Organization Details Last Modified Time Details Appointments Any 15 2025 08:45A Blank ashford MD Not available Not available Not available Any 15 2025 07:30A Blank Lucio MD Not available Not available Not available Lab glycohemo globin, total, blood [address] (Lab), [address] [place], [address], 08/18/2025 11:49:59 microalbu min, urine [address] (Lab), [address] [place], [address], 08/18/2025 11:49:59 vitamin D, 25-hydrox y, total, serum [address] (Lab), [address] [place], [address], 08/18/2025 11:49:57 lipid panel, serum [address] (Lab), [address] [place], [address], 08/18/2025 11:49:57 CMP, serum or plasma [address] (Lab), [address] [place], [address], 08/18/2025 11:49:58 CBC w/ auto diff [address] (Lab), [address] [place], [address], 08/18/2025 11:49:58 TSH, serum or plasma 2024 025 [email or web address] [facility] ([facility]), [address] [facility] [place], [address], 08/18/2025 11:49:[address] referral - Please call patient to schedule an appointme nt. Thank you. 2024 025 VANDANADaxa [facility], [address] [facility], [address], [place], [address], 08/25/2025 17:45:21 hand surgeon referral - Please call patient to schedule an appointme nt. Thank you. 2024 025 MILADIS Webb MD, [address] [facility], [facility] [address], [place], [address], 08/25/2025 17:30:51 Procedures None recorded. Surgeries None recorded. Imaging None recorded. Medication Orders None recorded. Patient TargetsNo targets recorded. Patient InstructionsNo instructions recorded. Reason for Referral Ribbon Blocker Referral for Kiran ateral hearing loss Please call patient to schedule an appointment. Thank you. Referring Physician: Nithin Raya, Internal Medicine, Encounter Date: 08/18/2025 Hand Surgeon Referral for Pa in of bilateral hands Please call patient to schedule an appointment. Thank you. Referring Physician: Nithin Raya, Internal Medicine, Encounter Date: 08/18/2025 Results Created Date Observation Date Name Description Value Unit Range Abnormal Flag Note LastModifiedBy Organization Detail LastModifiedTime 09/02/2009/02/2025 imagi ng/di agnos tic resul t No observ ation record ed. VANDANA [employer] [address] [facility] [address], [place], [address], 09/02/2025 12:50:48 Result Notes None recorded. Problems Name Problem SNOMED Code Status Onset Date Resolution Date Notes Provider Name and Address Organization Details Recorded Time Hyperlipide max 25582311 Active 2021 Nithin ashford MD [address], [address], [place], [address], [employer] [facility] 5 17:42:34 Gastroesoph ageal reflux disease without esophagitis 640770722 Active 2022 Nithin ashford MD [address], [address], [place], [address], [place] [facility] 5 17:42:35 Vitamin D deficiency 56599950 Active 2022 Nithin ashford MD [address], [address], [place], [address], [place] [facility] 17:42:35 Essential hypertensio n 77039942 Active 2022 Nithin ashford MD [address], [address], [place], [address], [employer] - [facility] 5 17:42:36 Malignant neoplasm of prostate 305670028 Active 2022 Nithin ashford MD [address], [address], [place], [address], [employer] - [facility] 5 10:51:51 Primary erectile dysfunction 900930109 Active 2022 Nithin ashford MD [address], [address], [place], [address], [employer] - [facility] 5 17:42:37 Pulmonary embolism 45791466 Active 2022 Nithin ashford MD [address], [address], [place], [address], [facility] - [facility] 5 17:42:36 Glaucoma 92610953 Active 2022 Nithin ashford MD [address], [address], [place], [address], [place] [facility] 5 17:42:36 Malignant neoplasm of lung 583295700 Active 2022 Nithin ashford MD [address], [address], [place], [address], [employer] [facility] 5 10:51:51 Actinic keratosis 511173542 Active 2023 Harley Lucio MD [address], [address], [place], [address], [employer] [facility] 5 15:28:51 Periodic limb movement disorder 965107696 Active 2023 Harley Lucio MD [address], [address], [place], [address], [employer] 5 15:29:30 Obstructive sleep apnea syndrome 72517487 Active 2023 Harley Lucio MD [address], [address], [place], [address], [employer] [facility] 5 15:29:26 Bilateral hearing loss 82442495 Active 2023 Nithin ashford MD [address], [address], [place], [address], [employer] 5 17:42:37 Cardiac arrhythmia 978631266 Active 2024 Nithin ashford MD [address], [address], [place], [address], [facility] 5 11:41:06 Liver enzymes level above reference range 557633625 Active 2024 Nithin ashford MD [address], [address], [place], [address], [facility] 5 10:50:30 Hyperglycem ia 44498465 Active 2024 Nithin ashford MD [address], [address], [place], [address], [employer] [facility] 5 11:46:06 Skin lesion 09841825 Active 2024 Nithin ashford MD [address], [place], [address], [employer] [facility] 5 10:50:30 Pain of bilateral hands 7210276943156 9109 Active 2024 Nithin ashford MD [address], [place], [address], [employer] [facility] 5 17:42:37 Anemia 084943774 Active 2024 Nithin ashford MD [address], [place], [address], [employer] [facility] 5 10:31:13 Notes:Medical History: Bilat eral hearing loss/tinnitus Glaucoma Obesity with mild OSAHS, AHI = 11, 02/18/22, on CPAP c/o IVRC Hyperlipidemia Hypertension EF 55% Mild TR/CT/AR Mild RVE RVSP 29 mmHg PE on [...] CPT Code, subsequent completed Rickie Dasilva LPN ID [employer] [facility] 03/06/2024 12:00:59 04/04/20 22 other completed Not Available [facility] 04:24:42 04/16/20 21 wedge excision of lung completed Not Available [facility] 01/18/2023 04:24:42 10/20/20 19 cardiac pacemaker procedure completed Not Available [facility] 01/18/2023 04:24:42 06/18/20 18 Colonoscopy completed Not Available [facility] 01/19/20 23 04:24:42 04/20/20 09 Pacemaker completed Not Available [facility] 3 04:24:42 04/20/20 08 Prostatectomy completed Not Available Critical access hospital 2022 04:24:42 Cataract Surgery completed [facility] 11/06/2023 09:15:43 Imaging Results None [...] Available Not Available Not Available Fluzone High-Dose 8746-1819 (PF) 180 mcg/0.5 mL intramusc ular syringe [...] Details Last Updated DateTime 5 172.72 cm 29.3 kg/m2 82477.3 3 g 97.2 [degF] 0 70 /min 99 % 124/78 mm[Hg] Roxana Tavarez MA [place] [facility] 5 10:41:32 Social History Question Answer Notes LastModified by Organization Details LastModified Time Tobacco Smoking Status Never Smoker Not Available [facility] 01/18/2023 04:11:14 Do You Have An Advance Directive? No Information Provided Previously MIGRATION.0301 [id number] Information not available 01/18/2023 Are You Blind Or Do You Have Difficulty Seeing? No MIGRATION.0301 949380 Information not available 01/18/2023 What Is Your Level Of Caffeine Consumption? Occasional MIGRATION.0301 [id number] Information not available 01/18/2023 How Much Tobacco Do You Chew? None MIGRATION.0301 945632 Information not available 01/18/2023 In The 14 Days Before Symptom Onset, Have You Had Close Contact With A Laboratory-conf irmed COVID-19 While That Case Was Ill? No MIGRATION.030 611603 Information not available 01/18/2023 In The 14 Days Before Symptom Onset, Have You Had Close Contact With A Person Who Is Under Investigation For COVID-19 While That Person Was Ill? No MIGRATION.0301 685765 Information not available 01/18/2023 Are You Deaf Or Do You Have Serious Difficulty Hearing? No Has Tinnitus MIGRATION.030 983084 Information not available 01/18/2023 What Type Of Diet Are You Following? REGULAR MIGRATION.030 444988 Information not available 01/18/2023 Which Illicit Or Recreational Drugs Have You Used? None MIGRATION.030 725944 Information not available 01/18/2023 What Is The Highest Grade Or Level Of School You Have Completed Or The Highest Degree You Have Received? [id number] Information not available 07/17/2023 Do You Have An Electrostatic Air Filter? No Information not available 06/16/2025 Have There Been Any Changes To Your Family Or Social Situation? No MIGRATION.0301 952404 Information not available 01/18/2023 What Is The Fluoride Status Of Your Home? Unknown MIGRATION.030 266219 Information not available 01/18/2023 Are There Any Guns Present In Your Home? Yes MIGRATION.0301 176430 Information not available 01/18/2023 Do You Have A Humidifier? No Information not available 06/16/2025 Do You Use Insect Repellent Routinely? No MIGRATION.0301 048079 Information not available 01/18/2023 [facility] You [facility]? [facility] MIGRATION.0301 545522 Information not available 01/18/2023 Guns Present In The Home? Yes [email or web address] Information not available 03/06/2024 Are You Able To Care For Yourself? Yes [email or web address] Information not available 03/06/2024 Are You Blind Or Do Yo Have Difficulty Seeing? No [email or web address] Information not available 03/06/2024 Are You Deaf Or Do You Have Serious Difficulty Hearing? No [email or web address] Information not available 03/06/2024 General Stress Level? Low Information not available 03/06/2024 Live Alone Of With Others? With Others [email or web address] Information not available 03/06/2024 Do You Have A Medical Power Of Directory Compiler? No MIGRATION.0301 433206 Information not available 01/18/2023 Do You Have Moisture Problems In Your Home? No Information not available 06/16/2025 What Was The Date Of Your Most Recent Tobacco Screening? 08/18/2025 [email or web address] Information not available 08/18/2025 Do You Have Any Pets? No MIGRATION.0301 923068 Information not available 01/18/2023 What Is Your Relationship Status? MIGRATION.0301 998564 Information not available 01/18/2023 Do You Use Your Seat Belt Or Car Seat Routinely? Yes MIGRATION.0301 853418 Information not available 01/18/2023 Do You Have Smoke And Carbon Monoxide Detectors In Your Home? Yes MIGRATION.0301 123583 Information not available 01/18/2023 Are You Passively Exposed To Smoke? No MIGRATION.0301 011087 Information not available 01/18/2023 Are There Any Smokers In Your House? No MIGRATION.0301 198954 Information not available 01/18/2023 How Much Tobacco Do You Smoke? No MIGRATION.0301 702115 Information not available 01/18/2023 Do You Use Sunscreen Routinely? Yes MIGRATION.0301 705119 Information not available 01/18/2023 Has Tobacco Cessation Counseling Been Provided? No N/a Information not available 07/17/2023 How Many Years Have You Smoked Tobacco? 0 MIGRATION.0301 357016 Information not available 01/18/2023 Have You Recently Traveled Abroad? No MIGRATION.0301 211828 Information not available 01/18/2023 Do You Have Difficulty Walking Or Climbing Stairs? No MIGRATION.0301 566098 Information not available 01/18/2023 Do You Have Any Dietary Restrictions? No MIGRATION.0301 908439 Information not available 01/18/2023 Sex: Male Functional Status Question Answer Note LastModified by Organizat ion Details LastModified Time Do you use any illicit or recreational drugs? No [email or web address] Information not available 03/06/2024 Do you or have you ever used any other forms of tobacco or nicotine? No Information not available 07/17/2023 What is your level of alcohol consumption? None MIGRATION.304658 9229 Information not available 01/18/2023 Are you currently employed? No Information not available 07/17/2023 Have you been exposed to chemicals or toxins? not that aware of Information not available 06/16/2025 Do you have transportation difficulties? No MIGRATION.427774 8186 Information not available 01/18/2023 Are you able to walk independently without assistance or assistive devices? YESWOREST MIGRATION.701003 3448 Information not available 01/18/2023 Do you have difficulty doing errands alone? No MIGRATION.257944 7610 Information not available 01/18/2023 Are you able to care for yourself independently? Yes MIGRATION.312066 3091 Information not available 01/18/2023 What is your occupation? retired MIGRATION.996947 3089 Information not available 01/18/2023 Do you have difficulty dressing, bathing, grooming, or toileting? No MIGRATION.164769 2330 Information not available 01/18/2023 What is your exercise level? Occasional MIGRATION.330573 4487 Information not available 01/18/2023 Mental Status Question Answer Note LastModified by Organizat ion Details LastModified Time Do you feel stressed (tense, restless, nervous, or anxious, or unable to sleep at night)? EC8303-7 MIGRATION.53657347 26 Information not available 01/18/2023 Do you have difficulty concentrating, remembering or making decisions? No MIGRATION.08856816 26 Information not available 01/18/2023 Family History Relationship Description Onset Age of this Age Resolved Age Notes LastModified by Organization Details LastModified Time Father Hypertensive disorder MIGRATION.442 [id number] Not available 01/18/2023 04:24:43 Father Cerebrovascu lar accident [email or web address] Not available 12/2023 10:49:52 Mother Hypertensive disorder MIGRATION.755 [id number] Not available 01/18/2023 04:24:43 Mother Cerebrovascu lar accident [email or web address] Not available 12/2023 10:49:52 Sister Hypertensive disorder MIGRATION.659 [id number] Not available 01/18/2023 04:24:44 Sister Myocardial infarction MIGRATION.536 [id number] Not available 01/18/2023 04:24:44 Sister Malignant neoplastic [...] PF 8 completed Mellissa Trevino RMA null, [facility] 11/06/2024 09:21:27 Influenza, adjuvanted, trivalent, PF 9 completed Mellissa Trevino RMA null, [facility] 11/06/2024 09:21:27 zoster recombinant 8 completed Mellissa Trevino RMA null, [facility] 11/06/2024 09:21:27 Influenza, adjuvanted, quadrivalent, PF 1 completed Mellissa Trevino RMA null, [facility] 11/06/2024 09:21:27 COVID-19, mRNA, LNP-S, PF, 100 mcg/0.5mL dose or 50 mcg/0.25mL dose 1 completed Mellissa Trevino RMA null, [facility] 11/06/2024 09:21:27 COVID-19, mRNA, LNP-S, PF, 100 mcg/0.5mL dose or 50 mcg/0.25mL dose 1 completed Mellissa Trevino RMA null, [facility] 11/06/2024 09:21:27 COVID-19, mRNA, LNP-S, PF, 100 mcg/0.5mL dose or 50 mcg/0.25mL dose 2 completed Mellissa Trevino RMA null, [facility] 11/06/2024 09:21:27 Pneumococcal conjugate PCV 13 5 completed Mellissa Trevino RMA null, [facility] 11/06/2024 09:21:27 Pneumococcal conjugate PCV 13 7 completed Mellissa Trevino RMA manish, [facility] 11/06/2024 09:21:27 Influenza, high-dose, trivalent, PF 6 [facility] 09:21:27 Influenza, high-dose, trivalent, PF 7 completed Mellissa Trevino RMA manish, [facility] 11/06/2024 09:21:27 Influenza, split virus, quadrivalent, PF 0 completed Mellissa Trevino RMA null, [facility] 11/06/2024 09:21:27 zoster recombinant 4 completed [facility] 11/06/2024 09:21:43 RSV, recombinant, protein subunit RSVpreF, adjuvant reconstituted, 0.5 mL, PF 3 completed [facility] 11/06/2024 09:21:44 COVID-19, mRNA, LNP-S, PF, 50 mcg/0.5 mL 3 completed [facility] 11/06/2024 09:21:44 influenza, unspecified formulation 9 completed [facility] 11/06/2024 09:21:44 zoster recombinant 4 completed Not Available Critical [facility] hospital 08/18/2025 10:36:22 Influenza, high-dose, trivalent, PF 4 completed Not Available [facility] 08/18/2025 10:36:22 COVID-19, mRNA, LNP-S, PF, 50 mcg/0.5 mL 4 completed Not Available [facility] 08/18/2025 10:36:22 Influenza, high-dose, trivalent, PF 5 completed Not Available [facility] 08/18/2025 10:36:22 COVID-19, mRNA, LNP-S, PF, belem-sucrose, 30 mcg/0.3 mL 5 completed Not Available Critical access hospital 08/18/2025 10:36:22 COVID-19, mRNA, LNP-S, bivalent, PF, 50 mcg/0.5 mL or 25mcg/0.25 mL dose 2 completed Mellissa Trevino RMA null, [facility] 11/06/2024 09:21:27 COVID-19, mRNA, LNP-S, PF, 100 mcg/0.5mL dose or 50 mcg/0.25mL dose 1 completed Mellissa Trevino RMA null, [facility] 11/06/2024 09:21:27 Influenza, split virus, quadrivalent, preservative 1 completed Mellissa Trevino RMA null, [facility] 11/06/2024 09:21:27 SARS-COV-2 (COVID-19) vaccine, UNSPECIFIED 1 completed Not Available Critical access hospital 01/18/2023 04:35:38 SARS-COV-2 (COVID-19) vaccine, UNSPECIFIED 1 completed Mellissa Trevino RMA null, [facility] 11/06/2024 09:21:27 Influenza, high-dose, quadrivalent, PF 9 completed Mellissa Trevino RMA null, [facility] 11/06/2024 09:21:43 Influenza, high-dose, trivalent, PF 0 completed Mellissa Trevino RMA null, [facility] 11/06/2024 09:21:27 pneumococcal polysaccharide PPV23 9 completed Mellissa Trevino RMA null, [facility] 11/06/2024 09:21:27 influenza, unspecified formulation 8 completed Mellissa Trevino RMA null, [facility] 11/06/2024 09:21:27 Pneumococcal conjugate PCV 13 8 completed Mellissa Trevino RMA null, [place] [facility] 11/06/2024 09:21:27 Tdap 8 completed Mellissa Trevino RMA null, [place] - [facility] 11/06/2024 09:21:27 influenza, unspecified formulation 7 completed Mellissa Trevino RMA null, [place] - [facility] 11/06/2024 09:21:27 Pneumococcal conjugate PCV 13 7 completed Mellissa Trevino RMA null, [facility] 11/06/2024 09:21:27 Influenza, high-dose, quadrivalent, PF 2 completed Mellissa Trevino RMA null, [place] [facility] 11/06/2024 09:21:27 Influenza, high-dose, quadrivalent, PF 3 completed Mellissa Trevino RMA null, [facility] 08/23/2023 10:00:05 Past Encounters Encounter ID Performer Location Encounter Start Date Encounter Closed Date Diagnosis/Indication Diagnosis SNOMED-CT Code Diagnosis ICD10 Code Diagnosis IMO Codes Diagnosis Note [id number] Nithin garcia MD [facility] [address] [place] [address] 08/18/2025 10:33:37 08/18/2025 11:54:58 Screening - NAD 705758349 Z13.9 C-scope: 06/18/18 Dr Ortiz n, no more c-scopes UTD flu shotUTD tdap 05/16/18UT D on shingles shot 06/27/18PC V 05/16/18 #13, UTD #23UTD on COVID 19 vaccineGet RSV vaccine RTC in 4 monthGet labsER if worseHe and his is agreeable to this plan of care Hyperlipidemia 51456167 E78.5 On atorvastat in 40mg daily, more diet and exercise is neededGet labs Gastroesop hageal reflux disease without esophagitis 200965861 K21.9 On omeprazole EGD 09/15/2023 Take as needed Cardiac arrhythmia 73634 7007 I49.9 S/p pacemaker 11/01-10/20 04/07, admitted and 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, he did have a PM implanted by Dr Briseno on 10/11/19 US duplex 02/24/2023 : Dr Briseno Sees TIGISTKathy Briseno 06/13/2025 Liver enzy mes level above reference range 209836577 R74.01 11/09/2020 : Dr Colbert/Miguel Perez [employer]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: [facility]: get labs and f/u in 3 months 02/17/2021 : Dr Colbert/Miguel Perez: [facility]: F/u PRN, LFTs WNL on 11/06/2020 Does well Vitamin D deficiency 347 69729 E55.9 Hyperglycemia 79832416 R 73.9 Check A1CGet to diet and exercise Sees his eye MD on 09/01/2025 [facility] Skin lesion 51220670 L98 .9 Lipoma like lesion noted in the mid chest below the sternum, non tenderSeen by Dr Seay OV 03/06/2024 :Small raised dark mole noted on the R lateral mid thighGet a referral to Dr Geena Seay 03/21/2024 Essential hypertension 43610337 I10 On amlodipine 10mg dailyOn HCTZ 12.5mg dailyOn lisinopril 40mg dailyOn metoprolol 50mg bid Does well nowGet labs Malignant neoplasm of prostate 063693407 C[address] Pina in [facility] Addendum 12/03/18:0 11/27/18: Dr Pina CT [...] with Dr Draper Primary er ectile dysfunction 156522565 N52.9 On viagra He is on lupron given by Dr Pina urologyDoe s well Malena Burns [employer]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 [facility] 12/11/2024 , got triptoreli n and f/u in 6 months with a bone scan, as per him he is not taking the lupron Pulmonary embolism 10026 003 I26.99 On xareltoDoe s well Glaucoma 55544321 H40.9 On latanopros t Lanie MartaSharif W[place]ton 06/29/2023 Malignant neoplasm of lung 246179817 C34.[address] Draper and [...] Than Than: NegCT chest 10/02/2023 : Dr BarnesT Chest 04/01/2024 : Neg: Dr Cotton OV 07/15/2024 :[facility] the RN for this was in the room today prior to my appointmen t, he is now getting nursing services thru the [facility] as it has been 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[employer], 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 that needs to be sent for the medical necessity, this was reviewed today OV 11/06/2024 : Keep apts with Dr Draper last 10/10/2024 , next in 6 months OV 05/14/2025 : Keep apt with Dr Harper states that he has seen Dr Landrum the CT surgeon OV 08/18/2025 :See Dr Landrum and Dr Draper Bilateral hearing loss 05915283 H91.93 Pain of bi lateral hands 5899717623 6680924 M79.[address] Webb 04/29/2025 Keep f/u apt Anemia 224270313 D64.9 5219202 Keep apt with hematology Dr Draper Health Concerns Section Related Observation LastModified by Organization Detai ls LastModified Time None Recorded Concern Status LastModified by Organization Details LastModified Time None Recorded Payers Encounter Date Sequence Insurance Name Policy Number Policy Tan Covered Member ID Tan Member ID Guarantor Name 08/18/2025 1 [place] Roque Felix [id number] Jeanna Felix 08/18/2025 2 FOR LIFE ( - MEDICARE SUPPLEMENT) Jeanna Felix [id number] Jeanna Felix Notes Date Note Type Note Provider Name and Address Organization Details Recorded Time 08/18/2025 text/html Here to establish carePast Hx:HTNHLDGERDEDProstat [...] has also had his CT chest in [facility] OV 09/13/2021:Here for his routine aptHe [...] well today, 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 [employer] a agency that is to evaluate him every month thru the [facility] as he has been diagnosed with lung ca and prostate ca d/t him working for [employer] has done the labs OV 11/06/2024: Here [...] doing well today Nithin Raya MD [address], [address], [place], [address], [place] [facility] 08/19/2025 15:43:42
--- OUTSIDE RECORDS SUMMARY | 2025-10-22 10:25 | XMS_ITS | Clinical Summary ---
Author Organization [facility] Beba Pires Address [address] [place] [address] Care Team Providers Care Oleomargarine Maker Name Role Phone Nithin Raya MD Primary [...] disk inhaler 04/06/20 20 Active flu vacc [id number],65up,/MF5 9C/PF (FLUAD ,65YR+,,P F, IM) 10/07/20 19 Active COVID-19 vacc,mRNA,Modern a,/PF (MODERNA COVID-19 VACCINE, EUA, IM) 09/13/20 21 Active latanoprost (XALATAN) 0.005 % solution 01/26/20 21 Active flu vaccine quadrivalent [id number] , 65 yr+,,PF, (Fluad Quad ,65y up,,PF,) 60 mcg (15 mcg x 4)/0.5 mL Syringe syringe 08/06/20 Active amLODIPine (NORVASC) 10 mg tablet 07/13/20 [...] Encounters Date Type Department Care Team Description 10/07/2025 External Device Data [facility] ABSTRACTION Provider, Abstract 09/10/2025 External Device Data [facility] ABSTRACTION Provider, Abstract 09/02/2025 External Device Data [facility] ABSTRACTION Provider, Abstract 08/05/2025 External Device Data [facility] ABSTRACTION Provider, Abstract [...] on file 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 Gender Identity Not on file Sexual Orientation Not on file Last Filed Vital Signs Vital Sign Reading Time Taken Comments Blood Pressure 139/81 04/24/2025 11:31 AM CDT Pulse 71 04/24/2025 11:31 AM CDT Temperature 36.6 C (97.9 F) 04/24/2025 11:31 AM CDT Respiratory Rate 15 04/24/2025 11:3 1 AM CDT Oxygen Saturation 97% 04/24/2025 11: 31 AM CDT Inhaled Oxygen Concentration - - Weight 87.5 kg (192 lb 12.8 oz) 025 11:31 AM CDT Height 172.7 cm (5' 8) 01/05/2022 9:31 AM TRANSMISSION CALIBRATION ENGINEER Body Mass Index 29.32 01/05/2022 9:31 AM TRANSMISSION CALIBRATION ENGINEER Plan of Treatment Upcoming Encounters Date Type Department Care Team (Late st Contact Info) Description 10/30/2025 10:15 AM TRANSMISSION CALIBRATION ENGINEER Office Visit [facility] Oncology and Hematology - [place] [address] [facility] [address] [place] [address] Chuckie Draper MD [address] [place] [address] Health Maintenance Due Date Last Done Comments RSV VACCINE (60+ or ) (1 - 1-dose 75+ series) 2017 INFLUENZA VACCINE (#1) 2025 , 08/17/2022, 08/23/2021, Additional history exists COVID-19 Vaccine (2024-2 6 season) 2025 09/10/2023, 09/23/2022, 03/22/2022, Additional history exists DTAP/TDAP/TD VACCINES (2 - T d or Tdap) 05/16/2028 05/16/2018 COLORECTAL SCREENING Discontinued 06/18/2018 Colorectal Cancer Screening Discontinued PNEUMOCOCCAL VACCINE 50+ YEARS Completed 0 03/11/2019, 05/16/2018, 05/01/2017, Additional history exists ZOSTER VACCINE Completed 05/17/2024, 06/07/2018 FIT-DNA Q 3 years Discontinued FIT/FOBT Q 1 year Discontinued Flex Sig/CT Colonography Q 5 years Discontinued Insurance MEDICARE PART A AND B [employer] Care Teams Oleomargarine Maker Relationship Specialty Start Date End Date Nithin Raya MD PCP - General Internal Medicine 11/26/19
--- OUTSIDE RECORDS SUMMARY | 2025-10-22 10:25 | XMS_ITS | Clinical Summary ---
Author Organization [facility] Address [address] [place] [address] Care Team Providers Care Director Corporate Compliance Name Role Phone Keri Raya MD Primary Care Provide r Devon Briseno MD Unavailable Allergies No known active allergies Medications lisinopril (PRINIVIL,ZESTRIL ) 40 mg tabletIndications :hypertension Take 1 tablet (40 mg total) by mouth every morning 8 Active metoprolol (LOPRESSOR) 50 mg tabletIndications :hypertension Take 1 tablet (50 mg total) by mouth 2 (two) times a day 8 Active multivit-min/foli c/vit K/lycop (ONE-A-DAY MEN'S MULTIVITAMIN [...] 550 mg by mouth daily Active omega 1-emq-vfd-fish oil 1,000 mg (120 mg-180 mg) capsule [...] 0.2-1 % drops,suspension 1 drop daily Active hydroCHLOROthiazi de 12.5 mg tablet 5 Active meloxicam (MOBIC) 15 mg tablet TAKE 1 TABLET(15 MG) BY MOUTH DAILY 30 tablet 2 5 Active Active Problems Patient Care Coordination No [...] are negative. Problem Noted Date Diagnosed Date Pain in both hands 02/05/2025 Bilateral hearing loss 07/15/2024 Hyperglycemia 07/11/2024 Skin lesion 07/11/2024 Cardiac arrhythmia 07/11/2024 Obstructive sleep apnea syndrome 05/27/2024 Periodic limb movement disorder 05/27/2024 Gastroesophageal reflux disease without esophagi tis 07/16/2023 Glaucoma 07/16/2023 Malignant neoplasm of lung 07/16/2023 Vitamin D deficiency 07/16/2023 Non-small cell cancer of right lung 09/20/2021 Lung nodule 03/23/2021 Overview (03/23/2021): Added automatically from request for surgery [id number] Nodule of right lung 09/28/2020 History of pulmonary embolism 04/08/2020 Pulmonary embolism 11/08/2019 Ventricular fibrillation 09/23/2019 Overview (10/10/2019): Added automatically from request for surgery [id number] Ventricular tachycardia 09/20/2019 Carotid bruit 03/22/2019 Systolic murmur 03/22/2019 Prostate cancer 05/16/2018 Hyperlipidemia 09/19/2014 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 Sick sinus syndrome 05/10/2010 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 04/30/2010 Overview (04/29/2025): old RV lead capped Encounters Date Type Department Care Team Description 09/03/2025 Telephone [facility] Medicine Oncology [address] [address] Alanna Cooley, RN 09/03/2025 Telephone [facility] Medicine Oncology [address] [address] Alanna Cooley, RN from Last 3 Months Immunizations Immunization Administration Dates Next Due Influenza, Quad, Adjuvantate d, Intramuscular 08/06/2020 Influenza, Quadrivalent, Spl it, Intramuscular 08/23/2021 Influenza, Quadrivalent, Spl it, Preservative Free, Intramuscular 08/06/2020 Influenza, Trivalent, Adjuva nted, Intramuscular 10/07/2019,08/31/2018 Influenza, Trivalent, High D ose, Split, Preservative Free, Intramuscular 10/22/2017,09/04/2016 Influenza, Unspecified 09/20/2019,08/31/2018,02/2017 Moderna SARS-CoV-2 Monovalen t Vaccination (12+ YRS) 01/01/2021,12/03/2020 Pneumococcal Conjugate PCV 13 05/16/2018, 017,02/05/2015 Pneumococcal Polysaccharide PPV23 03/11/2019 Tdap 05/16/2018 ZOSTER Recombinant 05/17/2024,06/07/2018 Surgical History Surgery Date Site/Laterality Comments CARDIAC PACEMAKER PLACEMENT Pacemaker Placement - 06/2010 (Added by TW Conv) PROSTATECTOMY 11/20/2007 - 11/19/2008 + radiation COLONOSCOPY 11/20/2017 - 11/19/2018 ABDOMINAL SURGERY Medical History Medical History Date Comments Personal history of other di seases of the circulatory system History of hypertension - (A dded by ZIGGY Conv) Hypertension Hyperlipidemia V-tach (HCC) 2018 Syncope Cardiac arrhythmia GERD (gastroesophageal reflux disease) Cancer (HCC) Prostate ED (erectile dysfunction) Arthritis Coronary artery disease Glaucoma Obstructive sleep apnea syndrome 05/27/2024 Family History Medical History Relation Name Comments [...] on file 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 Gender Identity Not on file Sexual Orientation Not on file 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 on file Last Filed Vital Signs Vital Sign Reading Time Taken Comments Blood Pressure 134/80 05/28/2025 9:09 AM CDT Pulse 70 05/28/2025 9:09 AM CDT Temperature 36.3 C (97.4 F) 05/28/2025 9:09 AM CDT Respiratory Rate 18 05/28/2025 9:09 AM CDT Oxygen Saturation 99% 05/28/2025 9:09 AM CDT Inhaled Oxygen Concentration - - Weight 86.8 kg (191 lb 6.4 oz) 05/28/2025 9:09 A M CDT Height 167 cm (5' 5.75) 05/01/2025 12:29 PM CDT Body Mass Index 31.13 05/01/2025 12:29 PM CDT Plan of Treatment Health Maintenance Due Date Last Done Comments Depression Screening 1942 Hepatitis B Screening 1960 Well Visit 65+ 2007 Fall Risk Assessment 04/17/2022 04/17/2021 Covid-19 Vaccine (2024- 6 season) 2025 03/22/2022, 09/13/2021, 01/01/2021, Additional history exists DTaP/Tdap/Td Vaccine (2 - Td or Tdap) 05/16/2028 05/16/2018 Pneumococcal vaccine 65+ Completed 019, 05/16/2018, 05/01/2017, Additional history exists Zoster Vaccine Completed 07/16/2024, 04/21, 06/07/2018 Influenza Vaccine Completed 07/29/2025, , 08/23/2021, Additional history exists Medical Devices Implanted Type Area Telemetry Registered Nurse Device Identifier Shelf Expiration Date Model / Serial / Lot [employer]uk[employer] Inc [id number] Ilivia 7 Hf-T Qp Df-4 Is4 Promri Cardiac Defibrillator - [id number] - [id number] Implanted:Qty: 1 on 10/11/2019 by Devon Briseno MD at [facility] ICD Left: Heart [employer] 10/19/2019 [id number] / [id number] / [employer] [id number] Sentus Promri Otw Quadripolar Left Ventricular Lead Icd L-85/49 - [id number] - [id number] Implanted:Qty: 1 on 10/11/2019 by Devon Briseno MD at [facility] Lead N/A: Heart [employer] 06/19/2021 [id number] / [id number] / [employer] [id number] Plexa Promri Lead Icd S 65 - [id number] - [id number] Implanted:Qty: 1 on 10/11/2019 by Devon Briseno MD at [facility] Lead N/A: Heart [employer] 06/19/2021 [id number] / [id number] / Pacemaker-04/30/20 10 Implanted: 010 (Quantity not on file) Pacemaker Left: Chest [employer] [place] [address] [employer] FOR LIFE MEDICARE [place] LIFE MEDICARE COMMERCIAL GENERIC FOR LIFE WORKERS COMPENSATION GENERIC WORKERS COMPENSATION GENERIC WORKERS COMPENSATION GENERIC COMPENSATION Advance Directives For more information, please contact: [phone] * Full Code (Latest Code Status on File) Date Activated Date Inactivated Comments 04/16/2021 4:19 PM 04/17/2021 9:46 PM * Full Code Date Activated Date Inactivated Comments 11/01/2019 1:03 PM 11/03/2019 4:29 PM Care Teams Director Corporate Compliance Relationship Specialty Start Date End Date Keri Raya MD [address] [address] PCP - General Internal Medicine 05/21/18 Devon Briseno MD [address] [place] [address] Extern Cardiology 03/23/21
--- OUTSIDE RECORDS SUMMARY | 2025-10-22 10:25 | XMS_ITS ---
Author Organization [facility] Address [address] [place] [address] Care Team Providers Care Lead Vulcanizing Operator Name Role Phone Keri Raya MD Primary Care Provide r Devon Briseno MD Unavailable [phone] Active Problems Patient Care Coordination No te [...] (03/23/2021): Added automatically from request for surgery [id number] Nodule of right lung 09/28/2020 History of pulmonary embolism 04/08/2020 Pulmonary embolism 11/08/2019 Ventricular fibrillation 09/23/2019 Overview (10/10/2019): Added automatically from request for surgery [id number] Ventricular tachycardia 09/20/2019 Carotid bruit 03/22/2019 Systolic murmur 03/22/2019 Prostate cancer 05/16/2018 Hyperlipidemia 09/19/2014 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 Sick sinus syndrome 05/10/2010 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 04/30/2010 Overview (04/29/2025): old RV lead capped Current Treatment and Therapy Plans Triptorelin Every 6 Months - Prostate* Plan Start Date:08/23/2021 Plan Provider:Anibal Pina MD Linked Problems Prostate cancer (HCC) Treatment Medications Current Day (Day 1 , Cycle 10 - Planned for 11/26/2025) Next Day (Day 1, Cycle 11 - Planned for 05/13/2026) triptorelin (TRELSTAR) triptorelin (TREL STAR) injection 22.5 [...] Lifetime Dose Automatic Entry Manual Entr y Fluoro Time 26.6 minutes 0 minutes 26.6 minutes Air kerma at the reference point (Ka,r) 38 mGy 0 mGy 38 mGy DLP 2,965 mGycm 2,965 mGycm 0 mGycm
--- OUTSIDE RECORDS SUMMARY | 2025-10-22 10:25 | XMS_ITS | Clinical Summary ---
Author Organization [facility] [employer] Address [address] [place] [address] Care Team Providers Care Card Sorter Name Role Phone Nithin Raya MD Primary Care Provider Source Comments [facility] [employer],non-owned Affiliates and Associated Physician Practices is amultiple site organization consisting of ambulatory clinics and hospital sitesin [place], [place], [place] and [place]. This disclosure is being madepursuant to the Care Everywhere program and may not contain all information available regarding this patient. 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 Gender Identity Not on file Sexual Orientation [...] yrs (1 - 1-dose 75+ series) 2017 DEPRESSION SCREENING 11/20/2024 COVID-19 VACCINE ( - 2024- season) 2025 09/13/2021, 01/01/2021, 12/03/2020 INFLUENZA VACCINE (#1) 2025 , 08/06/2020, 10/07/2019, Additional history exists HEPATITIS B [...] General On track( 022 9:56 AM CDT) Laita Koo RN Note: Expected end date: ongoing Interventions: Your nurse will assess your risk for falls/injury each visit Be aware of medications that could predispose you to falling Wear non-skid/rubber sole footwear Keep personal items within easy reach Use some light at night in your room Insurance MEDICARE [facility] Address: [facility] [address] [place] [address] [facility] MEDICARE MEDICARE Care Teams Card Sorter Relationship Specialty Start Date End Date Nithin Raya MD [address] [address] PCP - General 11/02/20
--- OUTSIDE RECORDS SUMMARY | 2025-10-22 10:25 | XMS_ITS | Encounter Summary ---
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
[2025-10-22 10:55] LABS: Estimated Glomerular Filt Rate > 60
== END 2025-10-22 09:31 | disposition home or self-care (01) ==
PROVIDERS: PCP Internal Medicine; Visit Provider Internal Medicine Hematology & Oncology
DX: C34.91 Malignant neoplasm of unspecified part of right bronchus or lung (principal)
CPT/HCPCS: 71260; Q9967